=== PATIENT | male | born 1935 | race Caucasian/White ===

== ENCOUNTER → 2016-03-24 | Outpatient (CLI) | payer OTHER ==
--- NOTE | 2016-03-24 16:02 | DX ---
PA and Lateral Chest - March 24, 2016 Indication: Heart valve replacement. Follow up. Comparison: Two-view chest dated January 11, 2016 Findings: The right subpulmonic effusion has increased and is now moderate resulting in worsening rig ht basilar compressive atelectasis. The small left pleural effusion has decreased in volume. Cardiome gopal, midline sternal wire, and prosthetic tricuspid valve are unchanged. No edema. Impression: 1. Increasing moderate right subpulmonic effusion. 2. Decreasing small left pleural effusion. 3. Cardiomegaly. No failure.
== END ==
LOC: FIMAGING 10:04
PROVIDERS: ATTEND Internal Medicine Cardiovascular Disease
DX: Z09 Encounter for follow-up examination after completed treatment for conditions other than malignant neoplasm (principal); J90 Pleural effusion, not elsewhere classified; I50.33 Acute on chronic diastolic (congestive) heart failure; Z95.2 Presence of prosthetic heart valve

== ENCOUNTER 2017-04-03 10:38 | Emergency (ER) | payer OTHER ==
--- NOTE | 2017-04-03 10:38 | EDPHY ---
H & P Allergies/Adverse Reactions: No Known Allergies Allergy (Verified 10/25/15 17:24) Home Medications: Medication Instructions Recorded Multivitamins [Multivitamin (*)] 1 each PO DAILY 10/02/15 Ferrous Sulfate 325 mg PO BIDMEAL 10/25/15 Warfarin Sodium [Coumadin 5MG (*)] 5 mg PO SUTUWETHSA@16 10/25/15 Nebivolol HCl [Bystolic 5 mg (*)] 5 mg PO HS 10/26/15 Pantoprazole Sodium [Protonix 40mg 40 mg PO DAILY 12/21/15 (*)] Spironolactone [Aldactone 25 MG 25 mg PO SUTH@09 12/21/15 (*)] Warfarin Sodium [Coumadin 7.5MG 7.5 mg PO MOFR@12/21/15 (*)] Acetaminophen [Tylenol 325mg (*)] 650 mg PO Q4HRS PRN #0 tab 12/31/15 Aspirin [Aspirin 81mg (*)] 81 mg PO DAILY #0 tab.chew 12/31/15 Furosemide [Lasix 40 MG (*)] 40 mg PO BID #60 tab 12/31/15 Potassium Cl [Klor-Con 20 meq (*)] 20 meq PO BID #60 tab 12/31/15 Sennosides/Docusate Sodium 1 - 2 tab PO BID #0 tab 12/31/15 [Senokot-S] Zolpidem Tartrate [Ambien 5MG (*)] 10 mg PO HS PRN #10 tab 12/31/15 traMADol [Ultram 50 mg (*)] 50 - 100 mg PO Q6HRS PRN #30 tab 12/31/15 Clindamycin 150 mg PO Q8 #30 cap 04/03/17 Medical Decision Making ED Course/Re-evaluation: CHIEF COMPLAINT: Leg bleeding, redness HISTORY OF PRESENT ILLNESS: The patient is an anticoagulated 81 y/o male with atrial fibrillation arriving via EMS from [facility] for evaluation of spontaneous left lower leg bleeding. He reports baseline redness and swelling in both legs, but reports his left leg has looked more red recently. He was recently on Levaquin for cellulitis, but discontinued with 2 days left due to leg cramping. He went to see his social worker aide today for follow up on recent echocardiogram when he started bleeding in the lobby. EMS applied a pressure bandage and transported him here. Patient denies fever or any systemic symptoms. REVIEW OF SYSTEMS: A 10 point review of systems was performed and is negative with the exception of the elements mentioned in the history of present illness. PHYSICAL EXAM: HR, BP, O2 Sat, RR. Temp noted General Appearance: Alert, well hydrated, appropriate, and non-toxic appearing. Head: Atraumatic without scalp tenderness or obvious injury Eyes: Pupils equal, round, reactive to light and accommodation, EOMI, no trauma , no injection. Nose: Atraumatic, no rhinorrhea, clear. Throat: Mucus membranes moist. Neck: Supple Respiratory: No retractions, no distress, no wheezes, and no accessory muscle use. Lungs are clear to auscultation bilaterally. Cardiovascular: Regular rate and rhythm, no murmurs, rubs, or gallops. Chronic venous stasis changes to both lower legs. Gastrointestinal: Abdomen is soft, nontender, non-distended, no masses, no rebound, no guarding, no peritoneal signs. Musculoskeletal: Normal active ROM of all extremities. Venous stasis changes and pedal edema to both lower legs. Left lower leg is cellulitic and more swollen than right with pinpoint area of superficial bleeding now controlled. Neurological: Alert, appropriate, and interactive. The patient has non-focal cranial nerves, motor, sensory, and cerebellar exam. Skin: No rashes, good turgor, no nodules on palpation. Past medical history: Atrial fibrillation - Coumadin Past surgical history: Noncontributory Family history: Noncontributory Social history: Lives alone. PCP: Dr. Ray. 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 MEDICAL DECISION MAKING: This is an anticoagulated 81 y/o male who presents with now-controlled spontaneous bleeding from his left lower leg. He was recently on treatment for cellulitis in this leg, but discontinued his Levaquin early due to side effects. He has chronic venous stasis and swelling in both legs with cellulitis of his left lower leg and now controlled pinpoint bleed on the lateral side of his foot. No systemic infectious symptoms. I recommended admission for treatment , but he refused. He will be discharged on clindamycin to cover MRSA. Understands he needs to follow up with his PCP on Thursday without fail. Strict return precautions given. Departure - Departure Disposition: Home, Routine, Self-Care Clinical Impression: leg bleeding Cellulitis Qualifiers: Site of cellulitis: extremity Site of cellulitis of extremity: lower extremity Laterality: left Qualified Code(s): L03.116 - Cellulitis of left lower limb Condition: Good Instructions: Clindamycin (By mouth), Cellulitis (ED) Additional Instructions: 1. Take clindamycin as prescribed. Be sure to complete the entire prescription. 2. Follow up with your primary care provider on Thursday. Please call today to schedule this appointment. 3. Return to the ED for fever, uncontrollable bleeding, shortness of breath, chest pain, severe pain, or other worsening of condition. Referrals: Adiel Ray MD [Medical Doctor] - As per Instructions Prescriptions: Clindamycin 150 mg PO Q8 #30 cap Report Scribed for: Jw Jean Baptiste Report Scribed by: Judy Rice Date of Report: 04/03/17 Time of Report: 10:55
[2017-04-03] MEDS ORDERED: CLINDAMYCIN 150 MG CAP PO ONE (10:46)
[2017-04-03 10:58] VITALS: BP 111/77; PULSE 106; RESP 16; TEMP 97.5; O2SAT 95
== END 2017-04-03 11:13 | disposition home or self-care (01) ==
LOC: EDUNIT#
DX: R23.3 Spontaneous ecchymoses (principal); L03.116 Cellulitis of left lower limb; Z79.01 Long term (current) use of anticoagulants; Z79.82 Long term (current) use of aspirin

== ENCOUNTER 2017-05-04 11:31 | Inpatient (IN) | payer OTHER ==
--- NOTE | 2017-05-04 12:18 | CPEKG ---
Heart Rate: 100 RR Interval: 600 QRSD Interval: 98 QT Interval: 360 QTC Interval: 465 QRS [place]: -40 T Wave [place]: -9 EKG Severity - ABNORMAL ECG - EKG Impression: ATRIAL FIBRILLATION EKG Impression: MULTIFORM VENTRICULAR PREMATURE COMPLEXES EKG Impression: LEFT AXIS DEVIATION EKG Impression: LOW VOLTAGE IN FRONTAL LEADS Electronically Signed By: Ej Lincoln 04-May-2017 18:39:22
--- NOTE | 2017-05-04 13:00 | EDPHY ---
H & P Stated Complaint: Diarrhea; poss blood in stool; on Warfarin Time Seen by Provider: 05/04/17 13:00 HPI/ROS: CHIEF COMPLAINT: Diarrhea, weakness, edema HISTORY OF PRESENT ILLNESS: The patient presents to the ED with a 1 and 1/2 week history of watery diarrhea. The patient has a history of atrial fibrillation and is chronically anticoagulated with Coumadin. The patient reports that he was on antibiotic 2 weeks ago for an upper respiratory infection. He believes it was Levaquin. The patient does have a history of heart failure. The patient denies any history of fall or trauma. The patient does report dyspnea on exertion and dose of breath. He denies any asymmetric calf pain or swelling. He denies pleuritic chest pain. REVIEW OF SYSTEMS: A comprehensive 10 point review of systems is otherwise negative aside from elements mentioned in the history of present illness. Source: Patient - Personal History Current Tetanus Diphtheria and Acellular Pertussis (TDAP): Yes - Medical/Surgical History Hx Asthma: No Hx Chronic Respiratory Disease: No Hx Diabetes: No Hx Cardiac Disease: Yes Hx Renal Disease: No Hx Cirrhosis: No Hx Alcoholism: No Hx HIV/AIDS: No Hx Splenectomy or Spleen Trauma: No Other PMH: mitral valve replacement, a-fib, CHF, HTN. infections in lower legs - Social History Smoking Status: Former smoker - Physical Exam Exam: General Appearance: Alert, no distress Eyes: Pupils equal and round no pallor or injection ENT, Mouth: Mucous membranes moist Respiratory: Rales Cardiovascular: Irregularly Gastrointestinal: Abdomen is soft and nontender, no masses, bowel sounds normal Neurological: 5/5 strength all 4 extremities Skin: This is dermatitis noted to the bilateral lower extremities Musculoskeletal: Neck is supple nontender Extremities: 3+ pitting edema Constitutional: Initial Vital Signs Temperature (C) 36.8 C 05/04/17 11:35 Heart Rate 107 H 05/04/17 11:35 Respiratory Rate 18 05/04/17 11:35 Blood Pressure 117/59 L 05/04/17 11:35 O2 Sat (%) 96 05/04/17 11:35 O2 Delivery Mode Room Air Allergies/Adverse Reactions: No Known Allergies Allergy (Verified 05/04/17 11:33) Home Medications: Medication Instructions Recorded Multivitamins [Multivitamin (*)] 1 each PO DAILY 10/02/15 Warfarin Sodium [Coumadin 5MG (*)] 5 mg PO ROBERTUTHSA@21 10/25/15 Pantoprazole Sodium [Protonix 40mg 40 mg PO DAILY 12/21/15 (*)] Spironolactone [Aldactone 25 MG 12.5 mg PO DAILY 12/21/15 (*)] Warfarin Sodium [Coumadin 7.5MG 7.5 mg PO MWF@21 12/21/15 (*)] Aspirin [Aspirin 81mg (*)] 81 mg PO DAILY #0 tab.chew 12/31/15 Ferrous Sulfate [Ferrous Sulf 325 325 mg PO BID 05/04/17 MG (*)] Gabapentin [Neurontin 300 MG (*)] 300 mg PO HS 05/04/17 Metolazone [Zaroxolyn 5MG (*)] 5 mg PO DAILY 05/04/17 Metoprolol Succinate Xr [Toprol Xl 25 mg PO HS 05/04/17 25 mg (*)] Potassium Cl [Klor-Con 20 meq (*)] 40 meq PO TID 05/04/17 Torsemide [Demadex] 20 mg PO BID PRN 05/04/17 oxyCODONE/APAP 5/325 [Percocet 1 tab PO Q6HRS PRN 05/04/17 5/325 (*)] Medical Decision Making - Diagnostics EKG Interpretation: EKG: Complete interpretation has been separately recorded in the [facility] archive. Summary impression: Atrial fibrillation, rate 100, nonspecific ST T wave changes noted. Imaging Results: Imaging Impressions Chest X-Ray 05/04/17 13:01 Impression: Peripheral right basilar consolidation may represent intrafissural fluid, pneumonia or potentially segmental atelectasis. If differentiation is important, then consider CT angiography. ED Course/Re-evaluation: The patient presents to the ED with weakness, dehydration and diarrhea in the setting of recent antibiotic use. A Clostridium difficile test has been ordered. The patient is noted to have evidence of heart failure clinically. The patient is currently rate controlled atrial fibrillation. Additionally the patient has an elevated INR of 9.1. He was noted to have an indeterminately elevated troponin. The patient presents to the ED with deconditioning in the setting of dehydration from a diarrheal illness, common current congestive heart failure and slight renal failure. Patient has an elevated INR but no evidence of active bleeding. He is hemodynamically stable. Consultation was made with the hospitalist service. The patient will be admitted by Dr. Latonya Bailey. Differential Diagnosis: Differential diagnosis considered includes congestive heart failure, arrhythmia , dehydration, renal failure, Clostridium difficile colitis - Data Points Laboratory Results: Laboratory Results 05/04/17 12:14 18 12:14 18 18 05/04/17 12:14 12:14 12:14 WBC 32.13 10^3/uL H 10^3/uL (3.80-9.50) RBC 3.70 10^6/uL L 10^6/uL (4.40-6.38) Hgb 12.6 g/dL L g/dL (13.7-17.5) Hct 35.8 % L % (40.0-51.0) MCV 96.8 fL fL (81.5-99.8) MCH 34.1 pg pg (27.9-34.1) MCHC 35.2 g/dL g/dL (32.4-36.7) RDW 13.5 % % (11.5-15.2) Plt Count 197 10^3/uL 10^3/uL (150-400) MPV 10.2 fL fL (8.7-11.7) Neut % (Auto) Not Reported Lymph % (Auto) Not Reported [place] % (Auto) Not Reported Eos % (Auto) Not Reported Baso % (Auto) Not Reported Nucleat RBC Rel Count 0.0 % % (0.0-0.2) Absolute Neuts (auto) Not Reported Absolute Lymphs (auto) Not Reported Absolute Monos (auto) Not Reported Absolute Eos (auto) Not Reported Absolute Basos (auto) Not Reported Absolute Nucleated RBC 0.00 10^3/uL 10^3/uL (0-0.01) Immature Gran % Not Reported Seg Neutrophils % 92 % % Band Neutrophils % 3 % % Lymphocytes % 2 % % Monocytes % 4 % % Immature Gran # Not Reported Absolute Seg Neuts 29.56 10^/uL H 10^/uL (1.70-6.50) Absolute Band Neuts 0.96 10^3/uL H 10^3/uL (0.00-0.70) Absolute Lymphocytes 0.64 10^3/uL L 10^3/uL (1.00-3.00) Absolute Monocytes 1.29 10^3/uL H 10^3/uL (0.30-0.80) Platelet Estimate ADEQUATE (ADEQ) Polychromasia 1+ H Smear Review By Pending PT 77.2 SEC H SEC (12.0-15.0) INR 9.91 H* (0.83-1.16) APTT 95.5 SEC H SEC (23.0-38.0) Sodium 131 mEq/L L mEq/L (135-145) Potassium 4.1 mEq/L mEq/L (3.5-5.2) Chloride 91 mEq/L L mEq/L (97-110) Carbon Dioxide 25 mEq/l mEq/l (22-31) Anion Gap 15 mEq/L mEq/L (8-16) BUN 97 mg/dL H mg/dL (7-23) Creatinine 2.0 mg/dL H mg/dL (0.7-1.3) Estimated GFR 32 Glucose 110 mg/dL H mg/dL (70-100) Calcium 8.9 mg/dL mg/dL (8.5-10.4) Troponin I 0.052 ng/mL H ng/mL (0.000-0.034) NT-Pro-B Natriuret Pep 7250 pg/mL H pg/mL (0-450) Departure - Departure Disposition: [facility] Acute Clinical Impression: Atrial fibrillation, Dehydration, Leukocytosis, Diarrhea, Elevated troponin Condition: Good
[2017-05-04 13:06] LABS: PLATELET COUNT 197 10^3/uL (150-400)
[2017-05-04 13:40] LABS: PROTIME(PATIENT) 77.2 SEC (12.0-15.0)
[2017-05-04] MEDS ORDERED: BACITRACIN OINTMENT 1 PACKET TP ONE (13:52)
[2017-05-04] MEDS ORDERED: ONDANSETRON DISINTEGRATING 4 MG TAB PO PRN (15:11)
[2017-05-04] MEDS ORDERED: ONDANSETRON 4 MG/2 ML VIAL IVP PRN (15:11)
[2017-05-04] MEDS ORDERED: NS 1,000 ML IV SCH (15:15)
[2017-05-04] MEDS ORDERED: PHYTONADIONE IV ONE (15:25)
[2017-05-04] MEDS ORDERED: NS IV ONE (15:25)
[2017-05-04] MEDS: OXYCODONE/APAP 5/325 TAB PO PRN ×2 (16:14→22:37)
[2017-05-04] MEDS: ACETAMINOPHEN 325 MG TAB PO PRN (16:16)
[2017-05-04] MEDS: VANCOMYCIN 125 MG/2.5 ML UDL PO SCH ×2 (16:17→21:06)
--- NOTE | 2017-05-04 16:21 | GHP ---
[f rep st] HISTORY AND PHYSICAL DATE OF ADMISSION: 05/04/2017 CHIEF COMPLAINT: Bloody diarrhea. HISTORY OF PRESENT ILLNESS: The patient is an 81-year-old man with a complicated past medical histor y due to atrial fibrillation with chronic anticoagulation, bioprosthetic tricuspid and mitral valve, and chronic renal insufficiency with a baseline creatinine between 1.6 and 1.9. He has had a couple of infections over the last month. Initially, he presented to his primary care provider with some co ngestion and sinus issues and was placed on Levaquin 500 mg daily for 10 days. After 8 days of this, he started to complain of some leg cramping, developed some bleeding in his left ankle, and was sent back to the emergency department, at which time he was diagnosed with cellulitis and started on clin damycin for 10 days. He just recently stopped that. About a week and a half ago, he started noting diarrhea. This is watery diarrhea, which was frequent. The diarrhea has been worsening over the pas t few days and a couple days ago noted increasing blood in his stool. Because of the ongoing bright red blood per rectum, he came to the emergency department today for further evaluation, at which time his INR was elevated at 9, his hemoglobin was mildly low at 12.6. He has not had significant abdomi nal pain, nausea, vomiting. No fevers or chills. No chest pain. No shortness of breath. No hematu yanet. No bleeding from his gums or anywhere else. The bleeding on his ankle has resolved. He says h is weight is a little bit down from his dry weight that is typically 69 kg. He also has had signific antly low energy, but no exertional symptoms of dyspnea or chest pain more recently. REVIEW OF SYSTEMS: A 10-point review of systems was done with pertinent positives present in the HPI : GENERAL: No fevers, chills, slight decreased weight. HEENT: Negative. CARDIOVASCULAR: Negativ e. PULMONARY: Negative. GASTROINTESTINAL: See HPI. : Negative. EXTREMITIES: See HPI. SKIN: See HPI. NEUROLOGIC: Negative. PSYCHIATRIC: Negative. PAST MEDICAL HISTORY: 1. Atrial fibrillation, on chronic anticoagulation with warfarin. Last INR on 03/26, which was norm al for him. 2. Bioprosthetic mitral and tricuspid valve. 3. Diastolic congestive heart failure. Last ejection fraction was 58%. 4. Chronic renal insufficiency with a baseline creatinine around 1.6 to 1.9. 5. Chronic back pain. 6. Gout. 7. Coronary artery disease with mild nonobstructive coronary disease by angiogram. 8. Abnormal PSA. 9. Chronic edema. 10. Hypertension. 11. History of hyperthyroidism. 12. Sensorineural hearing loss. PAST SURGICAL HISTORY: Valve replacements as noted in the HPI. FAMILY HISTORY: Significant for heart disease in his mother and his brother, prostate cancer in his father. SOCIAL HISTORY: He is . He does have step children. Former smoker. He drinks alcohol about 8 drinks per week. CURRENT MEDICATIONS: Please see medication reconciliation sheet. This includes, aspirin 81 daily, D emadex 20 daily, gabapentin 300 at night, metolazone 5 mg daily, Percocet as needed, Protonix 40 mg d aily, potassium 20 mEq daily, spironolactone 25 daily, Toprol-XL 25 daily, and warfarin as prescribed . ALLERGIES: No known drug allergies. PHYSICAL EXAMINATION: VITAL SIGNS: He is afebrile. Heart rate 117, blood pressure 111/75, respirat ions 14. He is 95% on room air. GENERAL: He is an 81-year-old man who is in no obvious distress. He is alert. HEENT: Pupils are small, but reactive. Extraocular movements intact. Sclerae anicter ic. Mucous membranes are slightly dry. Face is symmetric. NECK: Supple without adenopathy. HEART : Irregular with systolic murmur. LUNGS: Diminished bilaterally with some significantly decreased at the bases. Scattered rales clears with deep breathing. ABDOMEN: Slightly distended, mildly tend er in the left lower quadrant without guarding or rebound. EXTREMITIES: 3+ edema bilateral lower ex tremities with some chronic venous stasis changes. No evidence of cellulitis. MUSCULOSKELETAL: No joint effusions or deformities. SKIN: Intact. No rash. NEUROLOGIC: He is alert. His speech is f luent. He is moving all 4 extremities. PSYCHIATRIC: Mood is appropriate. LABORATORY/IMAGING: CBC shows a white count of 32,000, hemoglobin 12.6 with platelet count 197. Tierney ctrolytes notable for a sodium of 131, BUN is 97, creatinine at 2. Glucose was 110. INR is elevated at 9.9. Chest x-ray personally reviewed and interpreted, shows improving pleural effusion, questionable right lower lobe infiltrate versus atelectasis versus fluid in the fissure. Electrocardiogram shows atrial fibrillation. ASSESSMENT/PLAN: 81-year-old with multiple medical issues is admitted with bloody diarrhea, elevated INR, and mild anemia in the setting of chronic renal failure. He has had exposure to 2 different an tibiotics in the last month and is at high risk for developing Clostridium difficile colitis. 1. Bloody diarrhea, likely secondary to Clostridium difficile colitis, complicated by elevated INR, which may also be increased due to recent antibiotic usage with no recent monitoring. His hemoglobin appears stable. He has a normal blood pressure, but is slightly tachycardic. Plan will be to give him gentle fluids. Follow serial hemoglobin and hematocrit. We will give him a dose of vitamin K. If his hemoglobin and hematocrit remains stable, he will likely not need fresh frozen plasma. If not , we can always transfused with fresh frozen plasma. I suspect his gastrointestinal blood loss is se condary to his elevated INR and if this resolves with reversal of his INR, he will likely not need fu rther Gastroenterology workup. 2. Atrial fibrillation on chronic anticoagulation. See above. Vitamin K. Consider fresh frozen pl asma if he has decrease in his hematocrit. 3. Bioprosthetic mitral and tricuspid valve. Does not require anticoagulation for this. We will mo nitor his heart function. I did talk with his coin purse framer, Dr. Shadi Nolasco, who feels that he prima izabela has diastolic dysfunction and right-sided failure and recommends holding his diuretics. 4. Diastolic heart failure. See above. Last ejection fraction 58%. We will hold his diuretics, mo nitor his fluid status. His dry weight is less than his usual at this time, so I suspect he may be i ntravascularly dry. 5. Acute on chronic renal insufficiency. Creatinine elevated over his baseline. Again, will give v richard gentle fluids, follow this, and monitor his weight. I suspect this should correct rather quickly . 6. Chronic back pain. 7. Gout. 8. Coronary artery disease with slightly elevated troponin. He did have a recent angiogram, which s howed mild nonobstructive disease. This is likely a demand mismatch and will recheck a troponin in t he morning. He currently has no symptoms. 9. Deep venous thrombosis prophylaxis. Patient medium risk; however, he is currently over-anticoagu lated. We will monitor his daily INR. Copy requested to: Dr. Shadi Nolasco /[id number]/MODL
--- NOTE | 2017-05-04 17:05 | PDMN ---
Medical Necessity Medical necessity: Patient meets inpatient criteria per physician note and [facility] [place] [facility] (severe over-anticoagulation/INR 9.9; bloody diarrhea/poss C Diff ; history of atrial fib w/chronic anticoagulation, bioprosthetic mitral and tricuspid valves and diastolic heart failure with [id number] renal insufficiency; anticipated LOS > 2 midnights for ongoing IV hydration, IV Vit K , monitoring of serial labwork, poss FFP as needed.)
[2017-05-04 19:57] LABS: INR 9.91 (0.83-1.16)
[2017-05-04] MEDS: METOPROLOL SUCCINATE XR 25 MG TAB PO SCH (21:06)
[2017-05-04] MEDS: GABAPENTIN 300 MG CAP PO SCH (21:06)
[2017-05-04 22:54] LABS: INR 2.95 (0.83-1.16); PROTIME(PATIENT) 30.6 SEC (12.0-15.0)
[2017-05-05 04:13] LABS: INR 2.25 (0.83-1.16); PROTIME(PATIENT) 24.9 SEC (12.0-15.0)
[2017-05-05] MEDS: VANCOMYCIN 125 MG/2.5 ML UDL PO SCH ×4 (05:39→20:45)
[2017-05-05] MEDS: OXYCODONE/APAP 5/325 TAB PO PRN ×3 (08:12→20:51)
[2017-05-05] MEDS: MULTIVITAMINS 1 EACH TAB PO SCH (08:12)
[2017-05-05] MEDS ORDERED: NS 1,000 ML IV SCH (09:15)
--- NOTE | 2017-05-05 10:01 | HOSPPROG ---
Hospitalist Progress Note Assessment/Plan: 81-year-old with diastolic dysfunction and congestive heart failure is admitted with severe diarrhea, bright red blood per rectum and coagulopathy # diarrhea secondary to recent antibiotic use, currently on vancomycin. Will continue same * Precautions * PO Vanco * Gentle IV fluids, patient is slightly dehydrated # atrial fibrillation with rapid ventricular rate. I suspect this is likely from mild dehydration and will give gentle fluids * IV fluids * Continue metoprolol * Consider further rate reduction medication depending on response to fluid * On Coumadin for anticoagulation. INR improved with vitamin K, will resume with goal INR at 2, may need to hold any further GI bleeding # GI bleed: I suspect this is due to elevated INR. Hemoglobin has remained stable. * Continue to monitor H&H * Hold warfarin if rebleeds * No further evaluation needed at this time if no further rebleeding # anemia with acute blood loss. Stable does not need transfusion at this time # acute on chronic renal failure, creatinine back at baseline. Continue to follow # mild hypothyroidism with elevated TSH and low free T3. Will add low-dose Synthroid to his regimen he needs repeat labs in 2 months # by prostatic mitral and tricuspid valves # history of hypertension # gout # CAD with nonobstructive disease by angiogram previously Subjective: Feels quite weak today continues to have liquid diarrhea minimal abdominal pain eating and drinking well Objective: Vital Signs Temp Pulse Resp BP Pulse Ox 37.0 C 121 H 21 H 103/70 93 05/05/17 07:37 05/05/17 07:37 05/05/17 07:37 05/05/17 07:37 05/05/17 07:37 Laboratory Results 05/05/17 03:18 05/05/17 03:18 05/04/17 05/05/17 05/06/17 05:59 05:59 05:59 Intake Total 940 Output Total 575 Balance 365 PT 24.9 SEC (12.0-15.0) H 05/05/17 03:18 INR 2.25 (0.83-1.16) H 05/05/17 03:18 - Physical Exam Constitutional: no apparent distress, chronically ill appearing Eyes: PERRL, anicteric sclera Ears, Nose, Mouth, Throat: dry mucous membranes Cardiovascular: systolic murmur, irregularly irregular, edema Respiratory: no respiratory distress, clear to auscultation Gastrointestinal: normoactive bowel sounds, tenderness (Mild left lower quadrant ), distension (Mild) Genitourinary: no bladder fullness Skin: warm Musculoskeletal: generalized weakness Neurologic: No facial droop Psychiatric: interacting appropriately ICD10 Worksheet Patient Problems: Problems Problem Status Onset CHF exacerbation Acute Severe tricuspid regurgitation Chronic S/P TVR (tricuspid valve replacement) Acute 12/25/15 Acute blood loss anemia Acute Coagulopathy Acute Permanent atrial fibrillation Chronic Atrial fibrillation Acute Dehydration Acute Leukocytosis Acute Diarrhea Acute Elevated troponin Acute
--- NOTE | 2017-05-05 10:04 | WOCRNPDOC ---
WOCRN Advanced Assessment Note - Skin Integrity Problem, Advanced Assess Left Coccyx Pressure Injury Dressing Type: Allevyn Life Dressing Description: Soiled Exudate Amount: None Integumentary Issue Intervention: Barrier Cream Applied (will have nursing apply dimethicone) Neida Wound Tissue: Blanching, Erythema, Intact Neida Wound Swelling: None Wound Bed Color: Purple Site Odor: None Site Measurement - Head-to-Toe Length X Width X Depth (cm): [id number] Pressure Injury Stage: Deep Tissue Injury (DTI) (suspected) Pressure Injury Present on Admit: Yes (noted by nursing; hospitalist notified) Skin Integrity Problem Comment: Discrete, circular-shaped area of purple, ecchymotic skin to the L of patient's coccyx. Given its location and coloring, this is likely a suspected deep tissue injury. As patient is having frequent loose stools, will have nursing remove Allevyn dressing and apply dimethicone cream BID and PRN. Pressure-relieving interventions initiated, and patient verbalized understanding that nursing will encourage him to off-load this area every 2 hours.
[2017-05-05] MEDS: LEVOTHYROXINE 25 MCG TAB PO SCH (10:16)
[2017-05-05] MEDS: ACETAMINOPHEN 325 MG TAB PO PRN (10:20)
[2017-05-05] MEDS ORDERED: POTASSIUM CL 20 MEQ TAB PO ONE (12:03)
--- NOTE | 2017-05-05 12:22 | ASMTCMCOM ---
CM Note CM Note Notes: 05/05/2017 Case Management Note Discussed pt during rounds. Pt admitted for diarrhea, dehydration and CHF. Met w/pt and brother Don to discuss recommendation for Home Care PT and 24 hour supervision. Both in agreement. Contacted [facility] for referral. Case Management d/c poc: HC RN and PT Case Management to follow. Date Signed: 05/05/2017 12:22 PM Electronically Signed By:Annalisa Araya RN
--- NOTE | 2017-05-05 15:25 | ASMTCAGE ---
CAGE Do you feel you ought to Answers: No cut down on your drinking or drug use? Do people annoy you by Answers: No criticizing your drinking or drug use? Do you feel guilty about Answers: No your drinking or drug use? Do you drink or use drugs Answers: No first thing in the morning ([employer])? Additional Comments Pt reports 4 drinks per night of vodka. He mixes 1.5 ounces of vodka (for a total of 6 ounces) with a can of squirt soda. States he needs the vodka to sleep because his MD won't prescribe Ambien d/t fall risk. Date Signed: 05/05/2017 03:25 PM Electronically Signed By:Annalisa Araya RN
[2017-05-05] MEDS ORDERED: WARFARIN SODIUM 2.5 MG TAB PO ONE (16:00)
[2017-05-05] MEDS: METOPROLOL SUCCINATE XR 25 MG TAB PO SCH (19:36)
[2017-05-05] MEDS ORDERED: NS 1,000 ML IV ONE (20:24)
[2017-05-05] MEDS: GABAPENTIN 300 MG CAP PO SCH (20:45)
[2017-05-05] MEDS ORDERED: NS 250 ML IV ONE (22:48)
[2017-05-06] MEDS: LEVOTHYROXINE 25 MCG TAB PO SCH (05:21)
[2017-05-06] MEDS: OXYCODONE/APAP 5/325 TAB PO PRN ×3 (05:21→20:42)
[2017-05-06] MEDS: VANCOMYCIN 125 MG/2.5 ML UDL PO SCH ×4 (05:22→20:43)
[2017-05-06 05:26] LABS: PLATELET COUNT 146 10^3/uL (150-400)
[2017-05-06 05:34] LABS: INR 1.97 (0.83-1.16); PROTIME(PATIENT) 22.5 SEC (12.0-15.0)
[2017-05-06] MEDS: MULTIVITAMINS 1 EACH TAB PO SCH (08:37)
--- NOTE | 2017-05-06 15:08 | ASMTCMCOM ---
CM Note CM Note Notes: 05/06/2017 Case Management Note Met w/pt to discuss PT recommendation for SNF rehab. Pt in agreement. Pt requested referrals to [facility]. Pt has a house in [place] and requested referrals to [facility] [place]. Case Management d/c poc: SNF rehab pending acceptance and continued PT recommendations. Case Management to follow. Date Signed: 05/06/2017 03:08 PM Electronically Signed By:Annalisa Araya RN
--- NOTE | 2017-05-06 15:49 | HOSPPROG ---
Hospitalist Progress Note Assessment/Plan: 81-year-old with diastolic dysfunction and congestive heart failure is admitted with severe diarrhea, bright red blood per rectum and coagulopathy # acute colitis secondary to C diff- patient continues to have voluminous diarrhea today - - continue p.o. Vancomycin treatment dose - continue isolation precautions # atrial fibrillation with rapid ventricular rate. I suspect this is likely from mild dehydration and will give gentle fluids Chest x-ray(personally reviewed and interpreted) no acute infiltrates or edema -IV fluids - increase metoprolol 25 mg twice daily - restart warfarin # acute GI bleed- 2/2 elevated INR >9 at presentation with concurrent colitis Hgb 11 this morning - Continue to monitor H&H - INR now 1.9 secondary to treatment with vitamin K- recheck INR in a.m. - No further evaluation needed at this time if no further rebleeding # anemia with acute blood loss. Stable does not need transfusion at this time # acute on chronic renal failure, creatinine back at baseline 1.6 -> 1.3 - Continue to follow # mild hypothyroidism with elevated TSH and low free T3. - cont new low-dose Synthroid to his regimen he needs repeat labs in 2 months # by prostatic mitral and tricuspid valves- continue monitoring anticoagulation # history of hypertension # gout # CAD with nonobstructive disease by angiogram previously # prophylaxis on anticoagulation # diet regular # disposition greater than 2 midnights as the patient remains acutely ill with acute C diff colitis and GI bleed I have discussed the case RN-we will encourage p.o. Intake if it drops off can restart IV fluids Subjective: Diarrhea persists Objective: Vital Signs Temp Pulse Resp BP Pulse Ox 36.5 C 122 H 22 H 107/65 96 05/06/17 15:40 05/06/17 15:40 05/06/17 15:40 05/06/17 15:40 05/06/17 15:40 Laboratory Results 05/06/17 05:00 05/06/17 05:00 05/05/17 05/06/17 05/07/17 05:59 05:59 05:59 Intake Total 128 105 5447 Output Total 575 775 400 Balance 365 -375 1400 PT 22.5 SEC (12.0-15.0) H 05/06/17 05:00 INR 1.97 (0.83-1.16) H 03/14/18 05:00 - Physical Exam Constitutional: no apparent distress Eyes: anicteric sclera Ears, Nose, Mouth, Throat: moist mucous membranes Cardiovascular: irregularly irregular, tachycardia Respiratory: no respiratory distress Gastrointestinal: normoactive bowel sounds Genitourinary: no bladder fullness Skin: warm Musculoskeletal: No asymmetric calves Neurologic: AAOx3 Psychiatric: interacting appropriately Lymph, Heme, Immunologic: no cervical LAD ICD10 Worksheet Patient Problems: Problems Problem Status Onset Atrial fibrillation Acute Dehydration Acute Diarrhea Acute Elevated troponin Acute Leukocytosis Acute Acute blood loss anemia Acute CHF exacerbation Acute Coagulopathy Acute S/P TVR (tricuspid valve replacement) Acute 12/25/15 Permanent atrial fibrillation Chronic Severe tricuspid regurgitation Chronic
[2017-05-06] MEDS ORDERED: WARFARIN SODIUM 5 MG TAB PO ONE (16:00)
[2017-05-06] MEDS: ACETAMINOPHEN 325 MG TAB PO PRN (18:38)
[2017-05-06] MEDS: METOPROLOL TARTRATE 25 MG TAB PO SCH (20:42)
[2017-05-06] MEDS: GABAPENTIN 300 MG CAP PO SCH (20:42)
[2017-05-07 04:19] LABS: INR 2.75 (0.83-1.16)
[2017-05-07] MEDS: VANCOMYCIN 125 MG/2.5 ML UDL PO SCH ×4 (06:25→20:30)
[2017-05-07] MEDS: LEVOTHYROXINE 25 MCG TAB PO SCH (06:25)
[2017-05-07] MEDS: MULTIVITAMINS 1 EACH TAB PO SCH (09:17)
[2017-05-07] MEDS: METOPROLOL TARTRATE 25 MG TAB PO SCH ×2 (09:21→20:30)
[2017-05-07] MEDS: OXYCODONE/APAP 5/325 TAB PO PRN ×3 (12:58→22:04)
--- NOTE | 2017-05-07 13:10 | ASMTCMCOM ---
CM Note CM Note Notes: Pts case reviewed in tx rounds. CM met w/ pt for dispo planning. [facility] and [facility] have accepted pt. Pt would like to go to the [facility]. CM notified Lamont at the [facility] and he will start getting auth. CM sent updates to the [facility]. CM to follow. Plan: [facility] Date Signed: 05/07/2017 01:10 PM Electronically Signed By:KATEI Kinney
[2017-05-07] MEDS ORDERED: NS 1,000 ML IV ONE (15:56)
--- NOTE | 2017-05-07 15:58 | HOSPPROG ---
Hospitalist Progress Note Assessment/Plan: 81-year-old with diastolic dysfunction and congestive heart failure is admitted with severe diarrhea, bright red blood per rectum and coagulopathy # acute colitis secondary to C .diff- frequency of diarrhea slowed down mildly overnight WBC 34-> 24 Optimistic the patient is slowly improving- continue to encourage p.o. Intake - continue p.o. Vancomycin treatment dose - continue isolation precautions # atrial fibrillation with rapid ventricular rate. I suspect this is likely from mild dehydration will check urine studies and hydrate if appropriate Chest x-ray(personally reviewed and interpreted) no acute infiltrates or edema -IV fluids - increase metoprolol 25 mg twice daily - continue warfarin # acute hyponatremia-patient with ongoing losses with his diarrhea however peripheral lower extremity edema - Check urine electrolytes to clarify fluid status # acute GI bleed- 2/2 elevated INR >9 at presentation with concurrent colitis Hgb remains 11 this morning - Continue to monitor H&H daily - INR now 2.75 - continue home dosing of anticoagulants # anemia with acute blood loss. Stable does not need transfusion at this time # acute on chronic renal failure, creatinine back at baseline 1.6 -> 1.4 - Continue to follow # mild hypothyroidism with elevated TSH and low free T3. - cont new low-dose Synthroid to his regimen he needs repeat labs in 2 months # by prostatic mitral and tricuspid valves- continue monitoring anticoagulation # history of hypertension # gout # CAD with nonobstructive disease by angiogram previously # prophylaxis on anticoagulation # diet regular # disposition greater than 2 midnights as the patient remains acutely ill with acute C diff colitis and GI bleed I have discussed the case RN-we will encourage p.o. Intake if it drops off can restart IV fluids Subjective: Appetite remains poor Objective: Vital Signs Temp Pulse Resp BP Pulse Ox 36.6 C 94 18 95/72 L 93 05/07/17 12:00 05/07/17 12:00 05/07/17 12:00 05/07/17 12:00 05/07/17 12:00 Laboratory Results 05/07/17 03:34 05/07/17 03:34 05/06/17 05/07/17 05/08/17 05:59 05:59 05:59 Intake Total 400 2220 120 Output Total 775 600 350 Balance -375 1620 -230 PT 29.0 SEC (12.0-15.0) H 05/07/17 03:34 INR 2.75 (0.83-1.16) H 05/07/17 03:34 - Physical Exam Constitutional: no apparent distress, chronically ill appearing Eyes: anicteric sclera Ears, Nose, Mouth, Throat: dry mucous membranes Cardiovascular: regular rate and rhythym, tachycardia Respiratory: no respiratory distress Gastrointestinal: normoactive bowel sounds, distension Genitourinary: no bladder fullness Skin: warm Musculoskeletal: No asymmetric calves Neurologic: AAOx3 Psychiatric: interacting appropriately Lymph, Heme, Immunologic: no cervical LAD ICD10 Worksheet Patient Problems: Problems Problem Status Onset Atrial fibrillation Acute Dehydration Acute Diarrhea Acute Elevated troponin Acute Leukocytosis Acute Acute blood loss anemia Acute CHF exacerbation Acute Coagulopathy Acute S/P TVR (tricuspid valve replacement) Acute 12/25/15 Permanent atrial fibrillation Chronic Severe tricuspid regurgitation Chronic
[2017-05-07] MEDS ORDERED: WARFARIN SODIUM 2.5 MG TAB PO ONE (16:00)
[2017-05-07] MEDS: GABAPENTIN 300 MG CAP PO SCH (20:29)
[2017-05-08 04:05] LABS: INR 3.33 (0.83-1.16); PROTIME(PATIENT) 33.6 SEC (12.0-15.0)
[2017-05-08] MEDS: LEVOTHYROXINE 25 MCG TAB PO SCH (07:02)
[2017-05-08] MEDS: VANCOMYCIN 125 MG/2.5 ML UDL PO SCH ×4 (07:02→21:00)
[2017-05-08] MEDS: METOPROLOL TARTRATE 25 MG TAB PO SCH ×2 (08:09→21:00)
[2017-05-08] MEDS: MULTIVITAMINS 1 EACH TAB PO SCH (08:09)
[2017-05-08] MEDS: SODIUM CHLORIDE 1,000 MG TAB PO SCH ×2 (09:15→17:37)
[2017-05-08] MEDS: OXYCODONE/APAP 5/325 TAB PO PRN ×2 (12:32→17:37)
--- NOTE | 2017-05-08 13:00 | ASMTCMCOM ---
CM Note CM Note Notes: Patient case reviewed in rounds this am. He is improving. Discharge plan of care is to dc to [facility] when medically cleared. Monitoring electrolytes and INR. CM to follow. Date Signed: 05/08/2017 01:00 PM Electronically Signed By:Jessi Sanchez RN
--- NOTE | 2017-05-08 15:19 | HOSPPROG ---
Hospitalist Progress Note Assessment/Plan: 81-year-old with diastolic dysfunction and congestive heart failure is admitted with severe diarrhea, bright red blood per rectum and coagulopathy # acute colitis secondary to C .diff- frequency of diarrhea slowed down mildly overnight WBC 34-> 17 Patient is slowly improving- continue to encourage p.o. Intake - continue p.o. Vancomycin treatment dose - continue isolation precautions # atrial fibrillation with rapid ventricular rate. I suspect this is likely from mild dehydration will check urine studies and hydrate if appropriate Chest x-ray (personally reviewed and interpreted) no acute infiltrates or edema - IV fluids -continue metoprolol 25 mg twice daily - continue warfarin # acute hyponatremia-patient with ongoing losses with his diarrhea however peripheral lower extremity edema- Kerri < 5 however dropped to 124 has received IVF - adding salt tabs and encouraging PO # anemia with acute blood loss. Stable does not need transfusion at this time # acute on chronic renal failure, creatinine back at baseline 1.6 -> 1.5 - Continue to follow # mild hypothyroidism with elevated TSH and low free T3. - cont new low-dose Synthroid to his regimen he needs repeat labs in 2 months # prostatic mitral and tricuspid valves- continue monitoring anticoagulation- INR 3.3 holding warfarin today # history of hypertension # gout # acute GI bleed- 2/2 elevated INR > 9 at presentation with concurrent colitis Hgb remains 11 this morning - Continue to monitor H&H daily # CAD with nonobstructive disease by angiogram previously # prophylaxis on anticoagulation # diet regular # disposition greater than 2 midnights as the patient remains acutely ill with acute C diff colitis SNF likely in 24-72 hours I have discussed the case RN - holding warfarin today Subjective: feels a little better Objective: Vital Signs Temp Pulse Resp BP Pulse Ox 36.3 C 90 20 97/71 L 90 L 05/08/17 12:00 05/08/17 12:00 05/08/17 12:00 05/08/17 12:00 05/08/17 12:00 Laboratory Results 05/08/17 03:36 05/08/17 03:36 05/07/17 05/08/17 05/09/17 05:59 05:59 05:59 Intake Total 2220 1330 Output Total 600 350 Balance 1620 980 PT 33.6 SEC (12.0-15.0) H 05/08/17 03:36 INR 3.33 (0.83-1.16) H 05/08/17 03:36 - Physical Exam Constitutional: chronically ill appearing Eyes: anicteric sclera Ears, Nose, Mouth, Throat: moist mucous membranes Cardiovascular: irregularly irregular Respiratory: no respiratory distress Gastrointestinal: normoactive bowel sounds, distension Genitourinary: no bladder fullness Skin: warm Musculoskeletal: No asymmetric calves Neurologic: AAOx3 Psychiatric: interacting appropriately Lymph, Heme, Immunologic: no cervical LAD ICD10 Worksheet Patient Problems: Problems Problem Status Onset Atrial fibrillation Acute Dehydration Acute Diarrhea Acute Elevated troponin Acute Leukocytosis Acute Acute blood loss anemia Acute CHF exacerbation Acute Coagulopathy Acute S/P TVR (tricuspid valve replacement) Acute 12/25/15 Permanent atrial fibrillation Chronic Severe tricuspid regurgitation Chronic
[2017-05-08] MEDS: GABAPENTIN 300 MG CAP PO SCH (21:00)
[2017-05-09] MEDS: OXYCODONE/APAP 5/325 TAB PO PRN ×3 (00:48→21:24)
[2017-05-09 04:33] LABS: INR 3.4 (0.83-1.16); PROTIME(PATIENT) 34.1 SEC (12.0-15.0)
[2017-05-09] MEDS: VANCOMYCIN 125 MG/2.5 ML UDL PO SCH ×4 (05:27→21:25)
[2017-05-09] MEDS: LEVOTHYROXINE 25 MCG TAB PO SCH (05:27)
[2017-05-09] MEDS: METOPROLOL TARTRATE 25 MG TAB PO SCH ×2 (10:49→21:24)
[2017-05-09] MEDS: MULTIVITAMINS 1 EACH TAB PO SCH (10:49)
[2017-05-09] MEDS: SODIUM CHLORIDE 1,000 MG TAB PO SCH ×2 (10:49→18:18)
[2017-05-09] MEDS ORDERED: NS 1,000 ML IV SCH (11:30)
--- NOTE | 2017-05-09 18:20 | HOSPPROG ---
Hospitalist Progress Note Assessment/Plan: Assessment: 81-year-old male presents with acute enterocolitis secondary to C diff Plan: # acute colitis secondary to C .diff - ongoing loose BMs today, minimal abd pain, WBC downtrending - cont on PO vanco # atrial fibrillation with rapid ventricular rate - acute, cont on metop 25 bid , may need increase as his activity increases - remains in AFib on telemetry, personally interpreted, continue to monitor - cont on coumadin # acute hyponatremia - patient with ongoing losses and low Jose Antonio, cont NS + salt tabs # acute blood loss anemia - 2/2 colitis and supratherapeutic INR, cont to monitor Hgb # JOHN on CKD stage III - 2/2 hypovolemia, Cr returned to baseline 2/2 IVF, cont to monitor # Mild hypothyroidism with elevated TSH and low free T3 - cont new low-dose Synthroid to his regimen he needs repeat labs in 2 months # bioprostatic mitral and tricuspid valves - continue monitoring anticoagulation - INR 3.3 holding warfarin today, goal 2-3 # chronic HTN - cont home Rx # gout, chronic - no flare # acute lower GI hemorrhage - 2/2 elevated INR > 9 at presentation with concurrent colitis Hgb remains 11 this morning - Continue to monitor H&H daily # CAD, chronic # prophylaxis on anticoagulation # diet regular # disposition likely SNF when medically stable High-level medical complexity, with high risk of worsening morbidity and/or mortality secondary to the issues as outlined above. Subjective: Patient with uncontrolled loose bowel movement Objective: Vital Signs Temp Pulse Resp BP Pulse Ox 36.7 C 84 14 112/74 94 05/09/17 16:00 05/09/17 16:00 05/09/17 16:00 05/09/17 16:00 05/09/17 16:00 Laboratory Results 05/09/17 03:52 05/09/17 09:11 05/08/17 05/09/17 05/10/17 05:59 05:59 05:59 Intake Total 1330 1650 Output Total 350 800 300 Balance 980 850 -300 PT 34.1 SEC (12.0-15.0) H 05/09/17 03:52 INR 3.40 (0.83-1.16) H 05/09/17 03:52 - Physical Exam Constitutional: no apparent distress, not in pain, chronically ill appearing, uncomfortable Cardiovascular: irregularly irregular, tachycardia, edema (1+ bilateral lower extremity edema), No systolic murmur Respiratory: no respiratory distress, no rales or rhonchi, clear to auscultation Gastrointestinal: tenderness (Mild), distension (Moderate), No normoactive bowel sounds (Hyperactive bowel sounds), No guarding Neurologic: AAOx3, sensation intact bilaterally Psychiatric: interacting appropriately, not anxious, not encephalopathic, thought process linear ICD10 Worksheet Patient Problems: Problems Problem Status Onset CHF exacerbation Acute Severe tricuspid regurgitation Chronic S/P TVR (tricuspid valve replacement) Acute 12/25/15 Acute blood loss anemia Acute Coagulopathy Acute Permanent atrial fibrillation Chronic Atrial fibrillation Acute Dehydration Acute Leukocytosis Acute Diarrhea Acute Elevated troponin Acute
[2017-05-09] MEDS: GABAPENTIN 300 MG CAP PO SCH (21:24)
[2017-05-09] MEDS ORDERED: IPRATROPIUM/ALBUTEROL 3 ML DEYVIAL IH ONE (21:44)
[2017-05-10 04:18] LABS: PLATELET COUNT 154 10^3/uL (150-400)
[2017-05-10 04:26] LABS: INR 3.81 (0.83-1.16); PROTIME(PATIENT) 37.2 SEC (12.0-15.0)
[2017-05-10] MEDS: VANCOMYCIN 125 MG/2.5 ML UDL PO SCH ×4 (06:07→22:32)
[2017-05-10] MEDS: LEVOTHYROXINE 25 MCG TAB PO SCH (06:07)
[2017-05-10] MEDS: MULTIVITAMINS 1 EACH TAB PO SCH (08:58)
[2017-05-10] MEDS: SODIUM CHLORIDE 1,000 MG TAB PO SCH ×2 (08:58→17:07)
[2017-05-10] MEDS: METOPROLOL TARTRATE 25 MG TAB PO SCH ×2 (08:59→22:31)
[2017-05-10] MEDS: OXYCODONE/APAP 5/325 TAB PO PRN ×2 (12:12→18:06)
--- NOTE | 2017-05-10 17:07 | HOSPPROG ---
Hospitalist Progress Note Assessment/Plan: Assessment: 81-year-old male presents with acute enterocolitis secondary to C diff Plan: # acute colitis secondary to C .diff - ongoing loose BMs today, stool incontinence, minimal abd pain, WBC downtrending - cont on PO vanco, clinically unresolved and inappropriate to discharge to SNF at this time w/ stool incontinence # atrial fibrillation with rapid ventricular rate - acute, cont on metop 25 bid , may need increase as his activity increases - cont on coumadin once INR < 3 # acute hyponatremia - patient with ongoing losses and low Jose Antonio, increase solute intake, stopped IVF - stop salt tabs and gauge effect # acute blood loss anemia - 2/2 colitis and supratherapeutic INR, cont to monitor Hgb # JOHN on CKD stage III - 2/2 hypovolemia, Cr returned to baseline 2/2 IVF, cont to monitor # Mild hypothyroidism with elevated TSH and low free T3 - cont new low-dose Synthroid to his regimen he needs repeat labs in 2 months # bioprostatic mitral and tricuspid valves - continue monitoring anticoagulation - INR 3.8 holding warfarin today, goal 2-3 # chronic HTN - cont home Rx # chronic diastolic CHF - no e/o acute exacerbation, currently on room air, legs becoming edematous w/ tx of hyponatremia, so stopped IVF 05/10 # gout, chronic - no flare # acute lower GI hemorrhage - 2/2 elevated INR > 9 at presentation with concurrent colitis Hgb remains 11 this morning - Continue to monitor H&H daily # CAD, chronic # prophylaxis on anticoagulation # diet regular # disposition likely SNF when medically stable Subjective: ongoing stool in briefs Objective: Vital Signs Temp Pulse Resp BP Pulse Ox 36.4 C 104 H 17 120/80 95 05/10/17 16:36 05/10/17 16:36 05/10/17 16:36 05/10/17 16:36 05/10/17 16:36 Laboratory Results 05/10/17 03:40 05/10/17 03:40 05/09/17 05/10/17 05/11/17 05:59 05:59 05:59 Intake Total 1650 100 300 Output Total 800 700 1 Balance 850 -600 299 PT 37.2 SEC (12.0-15.0) H 05/10/17 03:40 INR 3.81 (0.83-1.16) H 05/10/17 03:40 - Physical Exam Constitutional: no apparent distress, not in pain, chronically ill appearing, No uncomfortable Cardiovascular: systolic murmur (I/ at sternum), irregularly irregular, edema (1+ bilat LE), No tachycardia Respiratory: no respiratory distress, no rales or rhonchi, clear to auscultation Gastrointestinal: normoactive bowel sounds, distension (moderate), No tenderness , No guarding Neurologic: AAOx3, sensation intact bilaterally, No weakness Psychiatric: interacting appropriately, not anxious, not encephalopathic, thought process linear ICD10 Worksheet Patient Problems: Problems Problem Status Onset Atrial fibrillation Acute Dehydration Acute Diarrhea Acute Elevated troponin Acute Leukocytosis Acute Acute blood loss anemia Acute CHF exacerbation Acute Coagulopathy Acute S/P TVR (tricuspid valve replacement) Acute 12/25/15 Permanent atrial fibrillation Chronic Severe tricuspid regurgitation Chronic
[2017-05-10] MEDS ORDERED: PHYTONADIONE 100 MCG TAB PO ONE (19:56)
--- NOTE | 2017-05-10 19:58 | HOSPPROG ---
Hospitalist Progress Note Assessment/Plan: called for bloody stool - reviewed case with pharmacy INR climbing in absence of warfarin dosing since 05/07 vital signs stable will give Vitamin K 100mcg now recheck INR in am Objective: Vital Signs Temp Pulse Resp BP Pulse Ox 36.4 C 118 H 22 H 131/74 H 92 05/10/17 19:55 05/10/17 19:55 05/10/17 19:55 05/10/17 19:55 05/10/17 19:55 Laboratory Results 05/10/17 03:40 05/10/17 03:40 05/09/17 05/10/17 05/11/17 05:59 05:59 05:59 Intake Total 1650 100 300 Output Total 800 700 1 Balance 850 -600 299 PT 37.2 SEC (12.0-15.0) H 05/10/17 03:40 INR 3.81 (0.83-1.16) H 05/10/17 03:40 ICD10 Worksheet Patient Problems: Problems Problem Status Onset Atrial fibrillation Acute Dehydration Acute Diarrhea Acute Elevated troponin Acute Leukocytosis Acute Acute blood loss anemia Acute CHF exacerbation Acute Coagulopathy Acute S/P TVR (tricuspid valve replacement) Acute 12/25/15 Permanent atrial fibrillation Chronic Severe tricuspid regurgitation Chronic
[2017-05-10] MEDS: GABAPENTIN 300 MG CAP PO SCH (22:32)
[2017-05-11 04:55] LABS: PLATELET COUNT 167 10^3/uL (150-400)
[2017-05-11 05:03] LABS: INR 3.41 (0.83-1.16); PROTIME(PATIENT) 34.2 SEC (12.0-15.0)
[2017-05-11] MEDS: VANCOMYCIN 125 MG/2.5 ML UDL PO SCH ×4 (06:25→20:02)
[2017-05-11] MEDS: LEVOTHYROXINE 25 MCG TAB PO SCH (06:26)
[2017-05-11] MEDS: OXYCODONE/APAP 5/325 TAB PO PRN ×2 (09:39→17:36)
[2017-05-11] MEDS: MULTIVITAMINS 1 EACH TAB PO SCH (09:39)
[2017-05-11] MEDS: METOPROLOL TARTRATE 50 MG TAB PO SCH ×2 (09:39→20:02)
--- NOTE | 2017-05-11 14:47 | ASMTCMCOM ---
CM Note CM Note Notes: 05/11/2017 Case Management Note Faxed updates to the [facility] in [place]. Requested [facility] run authorization for placement. Case Management d/c poc: [facility] pending auth. Case Management to follow. Date Signed: 05/11/2017 02:45 PM Electronically Signed By:Annalisa Araya RN
--- NOTE | 2017-05-11 18:10 | HOSPPROG ---
Hospitalist Progress Note Assessment/Plan: Assessment: 81-year-old male presents with acute enterocolitis secondary to C diff Plan: # acute colitis secondary to C .diff - ongoing loose BMs today, stool incontinence, minimal abd pain - cont on PO vanco, clinically unresolved and inappropriate to discharge to SNF at this time w/ stool incontinence # atrial fibrillation with rapid ventricular rate - acute, increased RVR today , increase metop to 50mg bid and gauge effect - cont on coumadin once INR < 3 # acute hyponatremia - patient with ongoing losses and low Jose Antonio, increased solute intake, off IVF - stopped salt tabs and gauge effect # acute blood loss anemia - 2/2 colitis and supratherapeutic INR, cont to monitor Hgb # JOHN on CKD stage III - 2/2 hypovolemia, Cr returned to baseline 2/2 IVF, cont to monitor # Mild hypothyroidism with elevated TSH and low free T3 - cont new low-dose Synthroid to his regimen he needs repeat labs in 2 months # bioprostatic mitral and tricuspid valves - continue monitoring anticoagulation - INR 3.4 holding warfarin today, goal 2-3 # chronic HTN - cont home Rx # chronic diastolic CHF - no e/o acute exacerbation, legs edematous but on RA # gout, chronic - no flare # acute lower GI hemorrhage - 2/2 elevated INR > 9 at presentation with concurrent colitis, one BRBPR last PM and received Vit K - Continue to monitor H&H daily # CAD, chronic # prophylaxis on anticoagulation # diet regular # disposition likely SNF when medically stable Subjective: one BRBPR last PM, ongoing stool incontinence today Objective: Vital Signs Temp Pulse Resp BP Pulse Ox 35.9 C L 100 20 102/64 94 05/11/17 14:58 05/11/17 14:58 05/11/17 14:58 05/11/17 14:58 05/11/17 14:58 Laboratory Results 05/11/17 04:43 05/11/17 04:43 05/10/17 05/11/17 05/12/17 05:59 05:59 05:59 Intake Total 884 379 2315 Output Total 700 301 1 Balance -406 661 3792 PT 34.2 SEC (12.0-15.0) H 05/11/17 04:43 INR 3.41 (0.83-1.16) H 05/11/17 04:43 - Physical Exam Constitutional: no apparent distress, not in pain, chronically ill appearing, uncomfortable Cardiovascular: irregularly irregular, tachycardia, edema (1+ bilat LE), No systolic murmur Respiratory: no respiratory distress, no rales or rhonchi, clear to auscultation Gastrointestinal: No normoactive bowel sounds (hyperactive bowel sounds), No tenderness, No guarding, No distension Neurologic: AAOx3, sensation intact bilaterally, No weakness Psychiatric: interacting appropriately, not anxious, not encephalopathic, thought process linear ICD10 Worksheet Patient Problems: Problems Problem Status Onset CHF exacerbation Acute Severe tricuspid regurgitation Chronic S/P TVR (tricuspid valve replacement) Acute 12/25/15 Acute blood loss anemia Acute Coagulopathy Acute Permanent atrial fibrillation Chronic Atrial fibrillation Acute Dehydration Acute Leukocytosis Acute Diarrhea Acute Elevated troponin Acute
[2017-05-11] MEDS: GABAPENTIN 300 MG CAP PO SCH (20:02)
[2017-05-12] MEDS: OXYCODONE/APAP 5/325 TAB PO PRN ×3 (00:38→19:54)
[2017-05-12 05:14] LABS: PLATELET COUNT 179 10^3/uL (150-400)
[2017-05-12] MEDS: VANCOMYCIN 125 MG/2.5 ML UDL PO SCH ×4 (06:19→19:54)
[2017-05-12] MEDS: LEVOTHYROXINE 25 MCG TAB PO SCH (06:19)
[2017-05-12] MEDS: METOPROLOL TARTRATE 50 MG TAB PO SCH ×2 (09:19→19:54)
[2017-05-12] MEDS: MULTIVITAMINS 1 EACH TAB PO SCH (09:19)
[2017-05-12] MEDS ORDERED: FUROSEMIDE 40 MG/4 ML VIAL IVP ONE (09:50)
--- NOTE | 2017-05-12 09:53 | HOSPPROG ---
Hospitalist Progress Note Assessment/Plan: Assessment: 81-year-old male presents with acute enterocolitis secondary to C diff Plan: # acute colitis secondary to C .diff - ongoing loose BMs today, stool incontinence and abd distension worsening, minimal abd pain - get abd x-ray to eval for toxic megacolon - cont on PO vanco, clinically unresolved and inappropriate to discharge to SNF at this time # atrial fibrillation with rapid ventricular rate - acute, increased RVR today , increase metop to 50mg bid and gauge effect - cont on coumadin once INR < 3 # acute hyponatremia - patient with ongoing losses and low Jose Antonio, increased solute intake, off IVF - stopped salt tabs and gauge effect # acute blood loss anemia - 2/2 colitis and supratherapeutic INR, cont to monitor Hgb # JOHN on CKD stage III - 2/2 hypovolemia, Cr returned to baseline 2/2 IVF, cont to monitor # Mild hypothyroidism with elevated TSH and low free T3 - cont new low-dose Synthroid to his regimen he needs repeat labs in 2 months # bioprostatic mitral and tricuspid valves - continue monitoring anticoagulation - INR 3.4 holding warfarin today, goal 2-3 # chronic HTN - cont home Rx # suspected acute on chronic diastolic CHF - patient becoming more tachypneic this AM, new problem, further w/u indicated. Has been off diuretic since admission, off IVF 48hrs, has hypervolemia on exam - initial CXR w/ interstitial infiltrates and RLL consolidation (personally interpreted) - get stat CXR/BNP/trop - give 40mg IV lasix bid now - monitor strict I/O/weights # gout, chronic - no flare # acute lower GI hemorrhage - 2/2 elevated INR > 9 at presentation with concurrent colitis, received Vit K - Continue to monitor H&H daily # CAD, chronic # prophylaxis on anticoagulation # diet regular # disposition likely SNF when medically stable Subjective: visibly labored breathing, forming BMs Objective: Vital Signs Temp Pulse Resp BP Pulse Ox 36.3 C 109 H 15 120/79 93 05/12/17 09:17 05/12/17 09:17 05/12/17 09:17 05/12/17 09:17 05/12/17 09:17 Laboratory Results 05/12/17 04:58 05/12/17 04:58 05/11/17 05/12/17 05/13/17 05:59 05:59 05:59 Intake Total 600 1500 Output Total 301 2 Balance 299 1498 PT 34.2 SEC (12.0-15.0) H 05/11/17 04:43 INR 3.41 (0.83-1.16) H 05/11/17 04:43 - Physical Exam Constitutional: not in pain, chronically ill appearing, uncomfortable, No no apparent distress (moderate ) Cardiovascular: irregularly irregular, tachycardia, edema (2+ bilat LE), No systolic murmur Respiratory: reduced air movement (bilat bases), expiratory wheeze, respiratory distress (visible tachypnea), No bronchial breath sounds Gastrointestinal: normoactive bowel sounds, distension (worsening, severely), No tenderness, No guarding Neurologic: AAOx3, sensation intact bilaterally, No weakness Psychiatric: interacting appropriately, not anxious, not encephalopathic, thought process linear ICD10 Worksheet Patient Problems: Problems Problem Status Onset Atrial fibrillation Acute Dehydration Acute Diarrhea Acute Elevated troponin Acute Leukocytosis Acute Acute blood loss anemia Acute CHF exacerbation Acute Coagulopathy Acute S/P TVR (tricuspid valve replacement) Acute 12/25/15 Permanent atrial fibrillation Chronic Severe tricuspid regurgitation Chronic
[2017-05-12 10:27] LABS: INR 2.74 (0.83-1.16); PROTIME(PATIENT) 28.9 SEC (12.0-15.0)
--- NOTE | 2017-05-12 14:14 | WOCRNPDOC ---
WOCRN Advanced Assessment Note - Skin Integrity Problem, Advanced Assess Left Coccyx Pressure Injury Dressing Type: Open to Air Neida Wound Tissue: Blanching Wound Bed Color: Minerva Skin Integrity Problem Comment: Patient rolled unassisted to his left side. Area of documented wound now pink throughout, intact and blanching. Wound care does not need to continue to follow this wound. Please reconsult PRN.
[2017-05-12] MEDS ORDERED: WARFARIN SODIUM 2.5 MG TAB PO ONE (16:00)
[2017-05-12] MEDS: FUROSEMIDE 40 MG/4 ML VIAL IVP SCH (16:17)
[2017-05-12] MEDS: ACETAMINOPHEN 325 MG TAB PO PRN (16:17)
[2017-05-12] MEDS: GABAPENTIN 300 MG CAP PO SCH (19:54)
[2017-05-13 03:37] LABS: PLATELET COUNT 176 10^3/uL (150-400)
[2017-05-13 03:51] LABS: INR 2.65 (0.83-1.16); PROTIME(PATIENT) 28.2 SEC (12.0-15.0)
[2017-05-13] MEDS: VANCOMYCIN 125 MG/2.5 ML UDL PO SCH ×4 (06:29→20:15)
[2017-05-13] MEDS: LEVOTHYROXINE 25 MCG TAB PO SCH (06:29)
[2017-05-13] MEDS: OXYCODONE/APAP 5/325 TAB PO PRN ×3 (06:32→20:27)
[2017-05-13] MEDS ORDERED: IOPAMIDOL (ISOVUE-300) 100 ML BTL ONE (08:36)
[2017-05-13] MEDS: METOPROLOL TARTRATE 50 MG TAB PO SCH ×2 (09:28→20:14)
[2017-05-13] MEDS: MULTIVITAMINS 1 EACH TAB PO SCH (09:28)
[2017-05-13] MEDS: FUROSEMIDE 40 MG/4 ML VIAL IVP SCH ×2 (09:29→16:39)
[2017-05-13] MEDS ORDERED: WARFARIN SODIUM 2.5 MG TAB PO ONE (16:00)
[2017-05-13] MEDS ORDERED: TORSEMIDE 20 MG TAB PO PRN (18:17)
--- NOTE | 2017-05-13 18:17 | HOSPPROG ---
Hospitalist Progress Note Assessment/Plan: Assessment: 81-year-old male presents with acute enterocolitis secondary to C diff c/b acute diastolic CHF exacerbation and afib w/ RVR Plan: # acute colitis secondary to C .diff - BMs solidifying today but continues to have bowel incontinence s/p PO contrast of CT scan yesterday - CT abd w/o megacolon, confirms colitis - off PPI - cont on PO vanco, clinically unresolved, recommend extended course of PO vanco given severity w/ outpt ID f/u # atrial fibrillation with rapid ventricular rate - acute, increased metop to 50mg bid and gauge effect - cont on coumadin # acute hyponatremia - resolved # acute blood loss anemia - 2/2 colitis and supratherapeutic INR, cont to monitor Hgb # JOHN on CKD stage III - 2/2 hypovolemia, resolved # Mild hypothyroidism with elevated TSH and low free T3 - cont new low-dose Synthroid to his regimen he needs repeat labs in 2 months # bioprostatic mitral and tricuspid valves - continue monitoring anticoagulation - INR 2.65, cont coumadin # chronic HTN - on bblocker # acute on chronic diastolic CHF - pt became more tachypneic on 05/12 s/p holding diuretics since admit, and chest imaging confirmed acutely worsening pleural effusions/pulm edema - BNP 5300, ongoing LE edema - s/p IV lasix 05/12 and 05/13, adjust back to home torsemide/metolzone/aldactone 05/14 AM K/Cr/Na permitting, holding home KCl at this time - main limiting factor for DC at this time, remains clinically unresolved # right lung consolidation - unclear etiology, patient was treated w/ Abx several weeks ago by Dr. Quigley for what was believed to be PNA, then he developed CDiff, and now the consolidation persists on chest CT (personally interpreted) - mild cough, but if productive, send sputum Cx - d/w patient, we both agree that holding on additional Abx at this time will help facilitate better CDiff tx, and he is not really manifesting PNA clinically , so will hold on addition of Abx and monitor WBC/Sx # gout, chronic - no flare # acute lower GI hemorrhage - 2/2 elevated INR > 9 at presentation with concurrent colitis, received Vit K - Continue to monitor H&H daily # CAD, chronic, restarted ASA # prophylaxis on anticoagulation # diet regular # disposition likely SNF when medically stable, possibly 05/14 pending stabilization of above High-level medical complexity, high risk of worsening morbidity and/or mortality secondary to the issues as outlined above. Subjective: patient w/ some stool incontinence, tolerating PO Objective: Vital Signs Temp Pulse Resp BP Pulse Ox 36.3 C 89 12 110/65 94 05/13/17 15:07 05/13/17 15:07 05/13/17 15:07 05/13/17 15:07 05/13/17 15:07 Laboratory Results 05/13/17 03:12 05/13/17 03:12 05/12/17 05/13/17 05/14/17 05:59 05:59 05:59 Intake Total 3518 002 1495 Output Total 2 500 700 Balance 1498 -200 500 PT 28.2 SEC (12.0-15.0) H 05/13/17 03:12 INR 2.65 (0.83-1.16) H 05/13/17 03:12 - Pending Discharge Pending Discharge Within 48 Hours: Yes Pending Discharge Date: 05/15/17 Pending Discharge Time: 11:00 - Physical Exam Constitutional: no apparent distress, not in pain, chronically ill appearing, uncomfortable Cardiovascular: irregularly irregular, tachycardia, edema (2+ bilat LE edema), No systolic murmur Respiratory: reduced air movement (bilat bases), inspiratory crackles, No expiratory wheeze, No bronchial breath sounds, No respiratory distress Gastrointestinal: normoactive bowel sounds, distension (moderate), No tenderness , No guarding Neurologic: AAOx3, No facial droop Psychiatric: interacting appropriately, not anxious, not encephalopathic, thought process linear ICD10 Worksheet Patient Problems: Problems Problem Status Onset Atrial fibrillation Acute Dehydration Acute Diarrhea Acute Elevated troponin Acute Leukocytosis Acute Acute blood loss anemia Acute CHF exacerbation Acute Coagulopathy Acute S/P TVR (tricuspid valve replacement) Acute 12/25/15 Permanent atrial fibrillation Chronic Severe tricuspid regurgitation Chronic
[2017-05-13] MEDS: GABAPENTIN 300 MG CAP PO SCH (20:14)
[2017-05-13] MEDS: FERROUS SULFATE 325 MG TAB PO SCH (20:14)
[2017-05-14 04:11] LABS: PLATELET COUNT 178 10^3/uL (150-400)
[2017-05-14 04:19] LABS: INR 2.66 (0.83-1.16); PROTIME(PATIENT) 28.3 SEC (12.0-15.0)
[2017-05-14] MEDS: OXYCODONE/APAP 5/325 TAB PO PRN ×2 (06:00→12:25)
[2017-05-14] MEDS: VANCOMYCIN 125 MG/2.5 ML UDL PO SCH ×2 (06:00→12:25)
[2017-05-14] MEDS: LEVOTHYROXINE 25 MCG TAB PO SCH (06:00)
[2017-05-14] MEDS ORDERED: ASPIRIN 81 MG CHEWABLE TAB PO SCH (09:00)
[2017-05-14] MEDS ORDERED: METOLAZONE 5 MG TAB PO SCH (09:00)
[2017-05-14] MEDS ORDERED: SPIRONOLACTONE 25 MG TAB PO SCH (09:00)
--- NOTE | 2017-05-14 09:18 | HOSPPROG ---
Hospitalist Progress Note Assessment/Plan: 81-year-old male found to have Clostridium difficile following antibiotic treatment for outpatient pneumonia. Patient is new to me today Assessment: 81-year-old male presents with acute enterocolitis secondary to C diff c/b acute diastolic CHF exacerbation and afib w/ RVR Plan: # acute colitis secondary to C .diff - BMs solidifying today but continues to have bowel incontinence s/p PO contrast of CT scan yesterday - CT abd w/o megacolon, confirms colitis - off PPI - cont on PO vanco, clinically unresolved, recommend extended course of PO vanco given severity w/ outpt ID f/u # atrial fibrillation with rapid ventricular rate - acute, increased metop to 50mg bid and gauge effect - cont on coumadin # acute hyponatremia - resolved # acute blood loss anemia - 2/2 colitis and supratherapeutic INR, cont to monitor Hgb # JOHN on CKD stage III - 2/2 hypovolemia, resolved # Mild hypothyroidism with elevated TSH and low free T3 - cont new low-dose Synthroid to his regimen he needs repeat labs in 2 months # bioprostatic mitral and tricuspid valves - continue monitoring anticoagulation - INR 2.65, cont coumadin # chronic HTN - on bblocker # acute on chronic diastolic CHF - pt became more tachypneic on 05/12 s/p holding diuretics since admit, and chest imaging confirmed acutely worsening pleural effusions/pulm edema - BNP 5300, ongoing LE edema - s/p IV lasix 05/12 and 05/13, adjust back to home torsemide/metolzone/aldactone 05/14 AM K/Cr/Na permitting, holding home KCl at this time - main limiting factor for DC at this time, remains clinically unresolved # right lung consolidation - unclear etiology, patient was treated w/ Abx several weeks ago by Dr. Quigley for what was believed to be PNA, then he developed CDiff, and now the consolidation persists on chest CT (personally interpreted) - mild cough, but if productive, send sputum Cx - d/w patient, we both agree that holding on additional Abx at this time will help facilitate better CDiff tx, and he is not really manifesting PNA clinically , so will hold on addition of Abx and monitor WBC/Sx # gout, chronic - no flare # acute lower GI hemorrhage - 2/2 elevated INR > 9 at presentation with concurrent colitis, received Vit K - Continue to monitor H&H daily # CAD, chronic, restarted ASA # prophylaxis on anticoagulation # diet regular # disposition likely SNF when medically stable, possibly 05/14 pending stabilization of above High-level medical complexity, high risk of worsening morbidity and/or mortality secondary to the issues as outlined above. Objective: Vital Signs Temp Pulse Resp BP Pulse Ox 36.5 C 90 17 109/64 90 L 05/14/17 07:53 05/14/17 07:53 05/14/17 07:53 05/14/17 07:55 05/14/17 07:53 Laboratory Results 05/14/17 03:10 05/14/17 03:10 05/13/17 05/14/17 05/15/17 05:59 05:59 05:59 Intake Total 300 1700 960 Output Total 500 700 Balance -200 1000 960 PT 28.3 SEC (12.0-15.0) H 05/14/17 03:10 INR 2.66 (0.83-1.16) H 05/14/17 03:10 ICD10 Worksheet Patient Problems: Problems Problem Status Onset CHF exacerbation Acute Severe tricuspid regurgitation Chronic S/P TVR (tricuspid valve replacement) Acute 12/25/15 Acute blood loss anemia Acute Coagulopathy Acute Permanent atrial fibrillation Chronic Atrial fibrillation Acute Dehydration Acute Leukocytosis Acute Diarrhea Acute Elevated troponin Acute
[2017-05-14] MEDS: ACETAMINOPHEN 325 MG TAB PO PRN (09:37)
[2017-05-14] MEDS: FERROUS SULFATE 325 MG TAB PO SCH (09:38)
[2017-05-14] MEDS: METOPROLOL TARTRATE 50 MG TAB PO SCH (09:38)
[2017-05-14] MEDS: MULTIVITAMINS 1 EACH TAB PO SCH (09:38)
[2017-05-14 11:40] VITALS: BP 102/64; PULSE 85; RESP 22; TEMP 97.2; O2SAT 93
--- NOTE | 2017-05-14 14:03 | PDIAF ---
- Diagnosis Code Status: Do Not Resuscitate - Medication Management Discharge Medications: Medications to Continue on Transfer Multivitamins [Multivitamin (*)] 1 each PO DAILY 10/02/15 [Last Taken 05/04/17] Warfarin Sodium [Coumadin 5MG (*)] 5 mg PO SUTUTHSA@21 10/25/15 [Last Taken 01/10] Pantoprazole Sodium [Protonix 40mg (*)] 40 mg PO DAILY 12/21/15 [Last Taken 02/09] Spironolactone [Aldactone 25 MG (*)] 12.5 mg PO DAILY 12/21/15 [Last Taken 05/03] Warfarin Sodium [Coumadin 7.5MG (*)] 7.5 mg PO MWF@21 12/21/15 [Last Taken 05/01] Ferrous Sulfate [Ferrous Sulf 325 MG (*)] 325 mg PO BID 05/04/17 [Last Taken 02/09] Gabapentin [Neurontin 300 MG (*)] 300 mg PO HS 05/04/17 [Last Taken 05/03/17] Metolazone [Zaroxolyn 5MG (*)] 5 mg PO DAILY 05/04/17 [Last Taken 05/03/17] Metoprolol Succinate Xr [Toprol Xl 25 mg (*)] 25 mg PO HS 05/04/17 [Last Taken 05/03/17] Potassium Cl [Klor-Con 20 meq (*)] 40 meq PO TID 05/04/17 [Last Taken 05/03/17 21:00] oxyCODONE/APAP 5/325 [Percocet 5/325 (*)] 1 tab PO Q6HRS PRN 05/04/17 [Last Taken 05/03/17] Levothyroxine [Synthroid 25 mcg (*)] 25 mcg PO DAILY AT 6AM #30 tab 05/14/17 [ Last Taken Unknown] Torsemide 20 mg PO Q2D #30 tablet 05/14/17 [Last Taken Unknown] Vancomycin [Vancocin Oral Liquid] 125 mg PO QID 14 Days udl 05/14/17 [Last Taken Unknown] Discharge Medications: Refer to the Discharge Home Medication list for PRN reason. 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
--- NOTE | 2017-05-14 14:31 | GDS ---
[f rep st] DISCHARGE SUMMARY NEW AND ACUTE DIAGNOSES: 1. Acute Clostridium difficile colitis. 2. Anemia secondary to gastrointestinal bleeding secondary to the colitis, status post 1 unit PRBC. 3. Acute atrial fibrillation. Rate controlled on metoprolol. 4. Fvvyd-xh-qhackfr kidney disease, stage III, now resolved. 5. Hyponatremia, resolved. 6. Bioprosthetic mitral and tricuspid valves. Will maintain on anticoagulation. 7. Chronic hypertension, on beta blockers. 8. Gntjr-bj-awgspib diastolic congestive heart failure, now resolving. 9. Acute pneumonitis, resolving. CHRONIC DIAGNOSES: 1. Gout without a flare during this hospitalization. 2. Known coronary artery disease. Chronic without acute ischemia. CONSULTATIONS: None. PROCEDURES: None. HOSPITAL COURSE: Evlnyr-ttsp-zzh male, with known numerous chronic medical problems, presented with acute mucus and bloody stools and was found to have acute colitis by CT scan of the abdomen. Studies confirmed Clostridium difficile colitis, believed secondary to prior use of Levaquin for an acute re spiratory infection 2-3 weeks prior to the admission. His anemia worsened and required 1 unit of PRB Cs during hospitalization. Atrial fibrillation was rate controlled with beta blockers. His Coumadin anticoagulation continued throughout the hospital course. Initially, he was supratherapeutic, with an INR of 9.9, believed secondary to the use of antibiotics prior to admission. This was allowed to declined nicely and, at discharge, his INR is 2.6. As noted, he did suffer some GI bleeding and rece ived a unit of packed cells for his anemia without complications. Gentleman was quite weak, requiring PT and OT for assistance, and will be discharged to a [facility] center. DISCHARGE MEDICATIONS: New medications are vancomycin oral liquid 125 mg q.i.d. for 14 days, Synthro id 25 mcg daily, torsemide 20 mg every other day. Continued medications are Coumadin 5 mg on Thursday, Thursday, , Thursday, and 7.5 mg on Thursday, Thursday, Thursday, potassium 40 mg t.i.d., pantoprazole 40 mg daily. Metoprolol succinate 25 mg h.s ., Aldactone 12.5 mg daily, Percocet 5/325 mg 1 p.o. q.6 hours p.r.n., multivitamin daily, metolazone 5 mg daily, Neurontin 300 mg h.s., ferrous sulfate 325 mg b.i.d. put in and also a new medication or of the tarsus Stopped medications are aspirin 81 mg a day and torsemide 20 mg p.o. daily. Note, that the torsemide has been changed from daily to every other as this, I believe, will provide adequate diuresis without excessive diuresis. Also, note that his aspirin has been stopped in light of his recent GI bleed, but this can restart restarted in 2-4 weeks for coronary artery disease. PLAN: The gentleman will be discharged to shelter facility, [facility]. Followup will be through his PCP following his discharge from [facility]. Patient's PCP is Dr. Adiel Ray who will be the followup following [facility]. Time this discharge required 50 minutes, greater than 50% to senior genetic counselor, coordinate his care, and establ carson his needs for rehabilitation at [facility]. /[id number]/MODL
[2017-05-14] MEDS ORDERED: WARFARIN SODIUM 2.5 MG TAB PO ONE (16:00)
== END 2017-05-14 15:51 | DRG 371 ==
LOC: F2W 14:50
PROVIDERS: ADMIT Internal Medicine; ATTEND Internal Medicine Pulmonary Disease
DX: A04.72 Enterocolitis due to Clostridium difficile, not specified as recurrent (principal); I50.33 Acute on chronic diastolic (congestive) heart failure; N18.3 Chronic kidney disease, stage 3 (moderate); I13.0 Hypertensive heart and chronic kidney disease with heart failure and stage 1 through stage 4 chronic kidney disease, or unspecified chronic kidney disease; D62 Acute posthemorrhagic anemia; E87.1 Hypo-osmolality and hyponatremia; I48.91 Unspecified atrial fibrillation; H90.5 Unspecified sensorineural hearing loss; M10.9 Gout, unspecified; E03.9 Hypothyroidism, unspecified; L89.159 Pressure ulcer of sacral region, unspecified stage; I25.10 Atherosclerotic heart disease of native coronary artery without angina pectoris; R91.8 Other nonspecific abnormal finding of lung field; Z95.3 Presence of xenogenic heart valve; Z79.01 Long term (current) use of anticoagulants
CPT/HCPCS: 84481-90; 97110-GP; 97116-GP; 97161-GP; 97166-GO; 97530-GO; 97530-GP; 97535-GO; G8978-GP-CJ; G8979-GP-CI; G8987-GO-CJ; G8988-GO-CI; G8989-GO-CI; J1940; J3430; Q9967

== ENCOUNTER 2017-11-30 08:50 | Inpatient (IN) | payer OTHER ==
--- NOTE | 2017-11-30 09:12 | EDPHY ---
H & P Time Seen by Provider: 11/30/17 09:10 HPI/ROS: CHIEF COMPLAINT: Abnormal kidneys HISTORY OF PRESENT ILLNESS: 82-year-old man has a history of congestive heart failure and was seen at [facility] last Thursday and apparently at that time Cardiology wanted to admit him for some type of kidney problem per the patient. Labs reveal BUN greater than 120 and creatinine 2.0 at that time. Patient presents today 5 days later because of that request. He says he otherwise feels fine except for being very tired. He is not short of breath, does not have chest pain, has chronic lower leg swelling, no diarrhea, is still making urine. REVIEW OF SYSTEMS: Eye: no change in vision ENT: no sore throat Cardiac: no chest pain or syncope Pulmonary: no cough or SOB Abdomen: no vomiting, diarrhea, abdominal pain Musculoskeletal: Bilateral leg swelling chronic Skin: Bilateral redness and venous stasis changes both legs, chronic Neuro: no headache Constitutional: no fever : no urinary symptoms A comprehensive 10 point review of systems is otherwise negative aside from elements mentioned in the history of present illness. PAST MEDICAL HISTORY: Includes mitral and tricuspid valve replacement, AFib, CHF, hypertension. Chronic lower extremity swelling, hernia repair and tonsillectomy. Gout. Clostridium difficile diagnosed in April of 2017 Social history: Here with his brother General Appearance: Alert and conversant, cooperative. Eyes: No scleral icterus. ENT, Mouth: Normal mucous membranes. Respiratory: Normal respiratory effort, breath sounds equal, lungs are clear to auscultation. Cardiovascular: Irregular rate and rhythm. Gastrointestinal: Abdomen is soft and non tender. Neurological: Alert, face symmetric, normal motor and sensory in extremities. Skin: Bilateral redness venous stasis changes both legs Musculoskeletal: 4+ peripheral edema, chronic, bilateral. Psychiatric: Not agitated. Emergency Department course/MDM: EKG shows atrial fibrillation. Plan for troponin, protime, electrolytes and chest x-ray. Labs reviewed, admission for acute kidney injury. Thought most likely due to diuretics. Discussed 1011 with Ronda Munoz. 1024: Rubi consulted. Agrees with admission for patient with uremia, who requires further diuresis. Smoking Status: Former smoker Constitutional: Initial Vital Signs Temperature (C) 36.5 C 11/30/17 08:56 Heart Rate 90 11/30/17 08:56 Respiratory Rate 18 11/30/17 08:56 Blood Pressure 115/58 L 11/30/17 08:56 O2 Sat (%) 99 11/30/17 08:56 O2 Delivery Mode Room Air Allergies/Adverse Reactions: No Known Allergies Allergy (Verified 11/30/17 08:56) Home Medications: Medication Instructions Recorded Multivitamins [Multivitamin (*)] 1 each PO DAILY 10/02/15 Warfarin Sodium [Coumadin 5MG (*)] 5 mg PO SUTUWETHSA@21 10/25/15 Pantoprazole Sodium [Protonix 40mg 40 mg PO DAILY 12/21/15 (*)] Spironolactone [Aldactone 25 MG 12.5 mg PO DAILY 12/21/15 (*)] Warfarin Sodium [Coumadin 7.5MG 7.5 mg PO MOFR@21 12/21/15 (*)] Ferrous Sulfate [Ferrous Sulf 325 325 mg PO BID 05/04/17 MG (*)] Gabapentin [Neurontin 300 MG (*)] 300 mg PO HS 05/04/17 Metolazone [Zaroxolyn 5MG (*)] 5 mg PO MOWE 05/04/17 Metoprolol Succinate Xr [Toprol Xl 25 mg PO HS 05/04/17 25 mg (*)] Potassium Cl [Klor-Con 20 meq (*)] 40 meq PO TID 05/04/17 oxyCODONE/APAP 5/325 [Percocet 1 tab PO Q6HRS PRN 05/04/17 5/325 (*)] Herbals/Supplements -Info Only 1 ea PO DAILY 11/30/17 Levothyroxine [Synthroid 75 mcg 75 mcg PO DAILY06 11/30/17 (*)] Sennosides/Docusate Sodium 1 - 2 each PO DAILY PRN 11/30/17 [Senna-Docusate Sodium Tablet] Torsemide 100 mg PO DAILY 11/30/17 Medical Decision Making - Diagnostics EKG Interpretation: 12-lead EKG interpreted by me; official reading is in computer system. My interpretation is atrial fibrillation with low extremity lead voltage in long QT. No acute ischemic changes per Imaging Results: Imaging Impressions Chest X-Ray 11/30/17 09:22 Impression: 1. Increased cardiomegaly. 2. Bilateral pleural effusions, right greater than left, with associated consolidation, slightly improved in the right lung. While consolidation is likely related to effusions and atelectasis, underlying pneumonia cannot be excluded. 3. Additional findings as above. Imaging: I viewed and interpreted images myself Consult/Admit Bed Type: [place] [facility] - Data Points Laboratory Results: Laboratory Results 11/30/17 09:22 11/30/17 09:22 1011/30/17 11/30/17 09:26 09:22 09:22 WBC RBC Hgb Hct MCV MCH MCHC RDW Plt Count MPV Neut % (Auto) Lymph % (Auto) Cobb % (Auto) Eos % (Auto) Baso % (Auto) Nucleat RBC Rel Count Absolute Neuts (auto) Absolute Lymphs (auto) Absolute Monos (auto) Absolute Eos (auto) Absolute Basos (auto) Absolute Nucleated RBC Immature Gran % Immature Gran # PT 29.2 SEC H SEC (12.0-15.0) INR 2.77 H (0.83-1.16) Sodium 138 mEq/L mEq/L (135-145) Potassium 3.9 mEq/L mEq/L (3.3-5.0) Chloride 95 mEq/L L mEq/L (97-110) Carbon Dioxide 26 mEq/l mEq/l (22-31) Anion Gap 17 mEq/L H mEq/L (8-16) BUN 128 mg/dL H* mg/dL (7-23) Creatinine 1.7 mg/dL H mg/dL (0.7-1.3) Estimated GFR 39 Glucose 115 mg/dL H mg/dL (70-100) Calcium 9.5 mg/dL mg/dL (8.5-10.4) POC Troponin I 0.03 ng/mL ng/mL (0.00-0.08) NT-Pro-B Natriuret Pep 3390 pg/mL H pg/mL (0-450) 11/30/17 09:22 WBC 5.92 10^3/uL 10^3/uL (3.80-9.50) RBC 3.44 10^6/uL L 10^6/uL (4.40-6.38) Hgb 10.8 g/dL L g/dL (13.7-17.5) Hct 32.0 % L % (40.0-51.0) MCV 93.0 fL fL (81.5-99.8) MCH 31.4 pg pg (27.9-34.1) MCHC 33.8 g/dL g/dL (32.4-36.7) RDW 14.6 % % (11.5-15.2) Plt Count 184 10^3/uL 10^3/uL (150-400) MPV 10.6 fL fL (8.7-11.7) Neut % (Auto) 72.4 % % (39.3-74.2) Lymph % (Auto) 13.3 % L % (15.0-45.0) Cobb % (Auto) 10.3 % % (4.5-13.0) Eos % (Auto) 2.7 % % (0.6-7.6) Baso % (Auto) 0.5 % % (0.3-1.7) Nucleat RBC Rel Count 0.0 % % (0.0-0.2) Absolute Neuts (auto) 4.28 10^3/uL 10^3/uL (1.70-6.50) Absolute Lymphs (auto) 0.79 10^3/uL L 10^3/uL (1.00-3.00) Absolute Monos (auto) 0.61 10^3/uL 10^3/uL (0.30-0.80) Absolute Eos (auto) 0.16 10^3/uL 10^3/uL (0.03-0.40) Absolute Basos (auto) 0.03 10^3/uL 10^3/uL (0.02-0.10) Absolute Nucleated RBC 0.00 10^3/uL 10^3/uL (0-0.01) Immature Gran % 0.8 % % (0.0-1.1) Immature Gran # 0.05 10^3/uL 10^3/uL (0.00-0.10) PT INR Sodium Potassium Chloride Carbon Dioxide Anion Gap BUN Creatinine Estimated GFR Glucose Calcium POC Troponin I NT-Pro-B Natriuret Pep Medications Given: Discontinued Medications Oxycodone/Acetaminophen (Percocet 5/325) 2 tab PO EDNOW ONE Stop: 11/30/17 10:00 Last Admin: 11/30/17 10:01 Dose: 2 tab Point of Care Test Results: Chemistry 11/30/17 09:26 POC Troponin I 0.03 ng/mL ng/mL (0.00-0.08) Departure - Departure Disposition: [facility] Acute Clinical Impression: Acute kidney injury, Peripheral edema Condition: Fair
--- NOTE | 2017-11-30 09:25 | CPEKG ---
Test Reason : OPEN Blood Pressure : / mmHG Vent. Rate : 086 BPM Atrial Rate : 000 BPM P-R Int : 179 ms QRS Dur : 113 ms QT Int : 421 ms P-R-T Axes : 000 000 045 degrees QTc Int : 504 ms Atrial fibrillation Low voltage, extremity leads Prolonged QT interval Confirmed by Shen Brandt ([id number]) on 11/30/2017 9:24:52 AM Referred By: Confirmed By:Shen Brandt
[2017-11-30 09:35] LABS: PLATELET COUNT 184 10^3/uL (150-400)
[2017-11-30 09:55] LABS: INR 2.77 (0.83-1.16); PROTIME(PATIENT) 29.2 SEC (12.0-15.0)
[2017-11-30] MEDS ORDERED: OXYCODONE/APAP 5/325 TAB PO ONE (09:59)
--- NOTE | 2017-11-30 10:43 | SOAPPROG ---
SOAP Progress Note Assessment/Plan: Assessment: Renal consult- see dictation # [id number] Verónica Meier MD [facility] pager [phone] 11/30/17 11:18 Objective: Vital Signs Temp Pulse Resp BP Pulse Ox 36.5 C 90 18 115/58 L 99 11/30/17 08:56 11/30/17 08:56 11/30/17 08:56 11/30/17 08:56 11/30/17 08:56 PT 29.2 SEC (12.0-15.0) H 11/30/17 09:22 INR 2.77 (0.83-1.16) H 11/30/17 09:22 ICD10 Worksheet Patient Problems: Problems Problem Status Onset Acute kidney injury Acute Peripheral edema Acute Acute blood loss anemia Acute Atrial fibrillation Acute CHF exacerbation Acute Coagulopathy Acute Dehydration Acute Diarrhea Acute Elevated troponin Acute Leukocytosis Acute S/P TVR (tricuspid valve replacement) Acute 12/25/15 Permanent atrial fibrillation Chronic Severe tricuspid regurgitation Chronic
--- NOTE | 2017-11-30 11:56 | GCON ---
IN-PATIENT NEPHROLOGY CONSULTATION REFERRING PHYSICIAN: Shen Brandt MD REASON FOR CONSULTATION: Acute kidney injury, volume overload. 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 The patien t is currently on torsemide 100 mg daily as well as metolazone 5 mg twice a week and notes severe low er extremity edema. He denies any nausea, vomiting or dizziness. He denies any shortness of breath. His chest x-ray here does show bilateral pleural effusions. His renal function has been difficult to manage with the need for diuretics as an outpatient. His creatinine today is 1.7 with a BUN of 12 8, sodium 138, potassium 3.9, and a bicarbonate of 26. Reviewing labs in the [facility] system it appea rs his creatinine over the past 2 months has been running anywhere from 1.7 to 2.2. His labs in [facility] showed a creatinine of 1.0. He notes that over the past several months his edema has been graduall y worsening and his diuretics have been titrated upwards. However, given the worsening renal functio n his metolazone dose has been decreased from daily to twice a week. He denies any NSAID use. He de nies any difficulty urinating or dysuria. He denies any known prostate enlargement problems. He has not started any new medications. He does report total body stiffness as he feels that his joints ar e achy. He denies any erythema or warmth in any single joint. He has not had any fevers. REVIEW OF SYSTEMS: GENERAL: He has some generalized malaise. No fevers. HEENT: No sore throat. PULMONARY: No shortness of breath. CARDIAC: No chest pain. He does have chronic lower extremity e mauricio that he thinks is progressively worsening. No palpitations. GI: No nausea, vomiting, or diarr hea. His appetite has been fairly good. : Denies any dysuria, hematuria, difficulty fully emptyi ng his bladder. SKIN: No new rashes. He notes his skin on his legs is chronically red. MUSCULOSKE LETAL: He has chronic total body joint stiffness but no erythema or warmth. ENDOCRINE: No history of diabetes. No polyuria or polydipsia. HEME: No bleeding. No rectal bleeding. PAST MEDICAL HISTORY: 1. Rheumatic valvular heart disease. He is status post mitral valve and tricuspid valve replacement s. He also has diastolic dysfunction. I do not have a copy of his recent echocardiogram but 1 from 2015 showed hyperdynamic LV function. Normally functioning bioprosthetic mitral and tricuspid valves with a gradient of tricuspid valve is 5 mmHg. No pericardial effusion. Both of his atrium are samantha rely dilated. No pericardial effusion. 2. History of Clostridium difficile colitis and GI bleeding secondary to colitis in April 2017 and r equired packed red cells at that time. 3. Atrial fibrillation. 4. Hypertension. 5. Gout. SOCIAL HISTORY: He denies any tobacco or alcohol use. He is a . FAMILY HISTORY: No kidney disease in the family. His father did have prostate cancer. PHYSICAL EXAM: VITAL SIGNS: His temperature is 36.8, blood pressure 94/58, his pulse is 83, he is s aturating 96% on room air. GENERAL: He is frail-appearing sitting in a chair in no acute distress. Not visibly tachypneic. HEENT: Mucous membranes are moist. NECK: Supple with elevated jugular ne ck vein. LUNGS: Decreased breath sounds at the bases bilaterally. CARDIOVASCULAR: Regular rate an d rhythm. A valvular click noted, no rub. ABDOMEN: Soft. Mild umbilical hernia. EXTREMITIES: 3+ edema bilaterally with venous stasis changes and darkening of the skin. BACK: No CVA tenderness. NEUROLOGIC: Alert and oriented x3. MUSCULOSKELETAL: No obvious joint erythema or warmth. He does have some kyphosis. LABS: Sodium 138, potassium 3.9, chloride 95, bicarbonate 26, BUN 128, creatinine 1.7, glucose 115, calcium 9.5, troponin 0.03. BNP 3390, white blood cell count 5.92, hemoglobin 10.8, hematocrit 32.0, platelets 184. INR 2.77. IMAGING: His chest x-ray showed bilateral pleural effusions and increased cardiomegaly. ASSESSMENT AND PLAN: The patient is an 82-year-old man with a history of congestive heart failure, s tatus post prior mitral and tricuspid valve replacement secondary to rheumatic heart disease, atrial fibrillation, gout, chronic kidney disease now presents with worsening renal function in the setting of volume overload: 1. Chronic kidney disease. He has had worsening renal function in the setting of volume overload an d congestive heart failure. Thus, this is likely cardiorenal in etiology. His current BUN is 128 an d creatinine 1.7 which is not far off from where he has been over the past few weeks. However, he is volume overloaded on exam with significant lower extremity edema and bilateral pleural effusions on chest x-ray. Thus, I agree that the patient warrants inpatient admission to help further manage this as he ultimately may need dialysis to manage this. It would be helpful to get a copy of his most re cent echocardiogram and I will defer to Cardiology if there is any further adjustment of medications we can do to optimize his cardiac function. At this point diuresis will prove tricky as I expect his renal function to continue to worsen. I would continue the torsemide and metolazone as you are with close following of his electrolytes. I did have a lengthy discussion with the patient today in the emergency room that we will try to manage this with diuretics but ultimately he may require dialysis to manage the volume status. I will check a renal ultrasound to exclude obstruction given his advanc ed age, but suspect again this is likely cardiorenal in etiology. 2. Congestive heart failure. I do not have a copy of his most recent echocardiogram as the last 1 i n the system is from 2016. He is status post bioprosthetic mitral valve and tricuspid valve that hav e been in there for a long time. He also has known diastolic dysfunction. I suspect he may have isauro e right-sided failure as well. It be helpful to get [facility] records and will defer to them if this needs to be repeated and if there is any further medication titration needed further to optimize cardiac function. 3. Joint stiffness: I will check a uric acid level. With this degree of diuresis I would not be layton rprised if this is contributing to some of the pain. I would avoid NSAIDs. We may need to give him a short course of prednisone to help manage this as well. 4. Anemia of chronic kidney disease: His hemoglobin is at goal but is on the low end. We will chec k iron stores. If he has significant proteinuria it may be worth also checking an SPEP, although fir st await the results of his urine studies. 5. 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 Thank you very much for the consultation. I have discussed my recommendations with the emergency med icine team. Please do not hesitate to call us with any questions. We will continue to follow closel y with you. /[id number]/MODL
[2017-11-30] MEDS ORDERED: SENNOSIDES/DOCUSATE SODIUM TAB PO PRN (12:32)
[2017-11-30] MEDS ORDERED: MAGNESIUM SULF 2 GM/WATER 50 ML IV ONE (12:53)
[2017-11-30] MEDS: METOLAZONE 5 MG TAB PO SCH (13:09)
[2017-11-30] MEDS: FUROSEMIDE 40 MG/4 ML VIAL IVP SCH ×2 (13:09→18:01)
--- NOTE | 2017-11-30 13:27 | GHP ---
DATE OF ADMISSION: 11/30/2017 Mr. Ely is an 82-year-old gentleman with a history of chronic kidney disease, diastolic failure, and mechanical heart valve, who presents to the hospital about a week after he was advised to do so by his administration intern. He had seen them in clinic and they checked some labs and saw a rising BUN and creatinine. The patient cites no specific reasons for waiting 5 days other than he had things to take care of at home. It sounds like his symptoms have not acutely worsened. He does notice lower extremity edema. He has not had fever, chills, or cough. He denies chest pain. He is not particularly short of breath. He does eat a low-salt diet. He notes that he does, in fact, have a low-salt diet and is compliant with medications. REVIEW OF SYSTEMS: Conducted and negative except as noted in the HPI. PAST MEDICAL HISTORY: 1. Episode of C diff in April of this year. 2. Atrial fibrillation on chronic anticoagulation, bioprosthetic, mitral and tricuspid valves. 3. Diastolic congestive heart failure. Last EF was 58%. 4. Chronic kidney disease with baseline creatinine about 1.8 to 1.9. 5. Chronic back pain. 6. Gout. 7. Coronary artery disease with nonobstructive coronary artery disease by angiogram. 8. Abnormal PSA. 9. Chronic edema. 10. Hypertension. 11. History of hypothyroidism. 12. Hearing loss. FAMILY HISTORY: Notable for heart disease in his mother and his brother, prostate cancer in his father. SOCIAL HISTORY: He is , 5 stepchildren. He denies alcohol to me. He lives [place] [facility] [address] the [facility]. ALLERGIES: No known drug allergies. HOME MEDICATIONS: Iron, metolazone 5 Thursday and Thursday, torsemide 100 daily , gabapentin, levothyroxine 75, metoprolol succinate XR 25 at h.s., multivitamin , Percocet, pantoprazole, potassium, senna docusate, spironolactone, and warfarin. PHYSICAL EXAMINATION: VITALS: Presenting vitals, blood pressure 115/58, pulse 90, breathing 18 times a minute, 98% on room air. GENERAL: Thin, chronically ill appearing. HEENT: Sclerae anicteric. Oropharynx clear. Mucous membranes moist. NECK: Supple without lymphadenopathy. There is JVD to the angle of the jaw. HEART: S1, S2. There is a systolic murmur and systolic click. LUNGS : Show rhonchi and decreased breath sounds at the bases. ABDOMEN: Soft, nontender, nondistended. EXTREMITIES: Lower extremities show 4+ edema bilaterally with some excoriations. SKIN: Otherwise without rash. NEUROLOGIC : Nonfocal. LABS: White count 6, hematocrit 32, which is his baseline, platelets 184. INR 2.77. Sodium 138, potassium 3.9, chloride 95, bicarb 26, BUN 128, creatinine 1.7, glucose 115. Magnesium is low at 1.3. Iron is 61, with a TIBC of 318, iron saturation of 19, ferritin is 274. PTH is elevated at 107. Troponin 0.03. BNP is 3390, which is low for him. I have discussed the case with Dr. Papo Brewer as well as Dr. Shen Brandt. Chest x -ray interpreted by me shows bilateral pleural effusions, right greater than left, with consolidation, cardiomegaly. EKG interpreted by me shows atrial fibrillation at 86, with borderline left axis deviation, no ST or T-wave changes. There are frequent PVCs. ASSESSMENT/PLAN: An 82-year-old gentleman with diastolic heart failure, valvular replacements, and chronic kidney disease, presents with worsening heart failure, right greater than left. 1. Heart failure. He has a history of diastolic dysfunction and valvular disease, now with right heart failure. He has not had an echocardiogram in a while. Discussed with Cardiology about reviewing when his last outpatient echocardiogram was versus repeating here. For now, he certainly is volume overloaded and needs diuresis. Nephrology is taking the lead on writing for diuretics. Writing for metolazone 5 daily as well as Lasix 80 IV b.i.d. We will follow his response to that. 2. Acute on chronic kidney disease. The patient has chronic kidney disease with worsening BUN and creatinine. His BUN is markedly high. His hematocrit is baseline, do not suspect upper GI bleed, rather prerenal azotemia. Does not appear to be sedated or confused by this. He denies somnolence or confusion as an outpatient. We will follow these labs with diuresis. I suspect that he may be intravascularly volume overloaded as well given his elevated JVD. 3. Elevated PTH, likely secondary hyperparathyroidism. 4. Hypomagnesemia. Will replete. 5. History of Clostridium difficile. No diarrhea. 6. Atrial fibrillation, currently rate controlled. Takes a beta esteban. Continue his warfarin. His INR is therapeutic. 7. Code status. Full code. DISPOSITION: Inpatient status. /[id number]/MODL MTDD
[2017-11-30] MEDS ORDERED: ACETAMINOPHEN 325 MG TAB PO PRN (14:42)
[2017-11-30] MEDS ORDERED: ONDANSETRON DISINTEGRATING 4 MG TAB PO PRN (14:42)
[2017-11-30] MEDS ORDERED: ONDANSETRON 4 MG/2 ML VIAL IVP PRN (14:42)
--- NOTE | 2017-11-30 14:50 | PDMN ---
Medical Necessity Medical necessity: Pt meets inpt criteria per MD order and MCG M-190, Heart Failure. 82 y/o w/hx diastolic heart failure, valve replacements, and chonic kidney disease admitted w/worsening R side heart faiure, acute on chronic kidney disease w/increasing BUN (128) and creatinine (1.7), hypomagnesemia (Mg 1.3), and hypotensive 94/58, BNP 3390. Diuresis w/IV Lasix, follow labs, nephrology consult, anticipate>2MN for management of above medical conditions.
[2017-11-30] MEDS: OXYCODONE/APAP 5/325 TAB PO PRN (17:29)
[2017-11-30] MEDS: POTASSIUM CL 20 MEQ TAB PO SCH ×2 (17:29→20:12)
--- NOTE | 2017-11-30 19:24 | GCON ---
CARDIOLOGY CONSULTATION DATE OF CONSULTATION: 11/30/2017 REASON FOR CONSULTATION: Right-sided congestive heart failure. HISTORY OF PRESENT ILLNESS: The patient is a pleasant 82-year-old gentleman with a known cardiac his tory of bioprosthetic mitral valve in the setting of rheumatic valvular disease, status post redo jayson rnotomy with tricuspid valve replacement in December 2015 in the setting of severe symptomatic tricus pid regurgitation. He also has known history of chronic renal insufficiency, mild nonobstructive cor onary artery disease, diastolic congestive heart failure, chronic atrial fibrillation, on long-term a nticoagulation with Coumadin, who presented to [facility] secondary to increasing jerrell ateral lower extremity edema and some dyspnea on exertion. He was last seen in our office by STEPHEN Jansen Ba, on November 25, 2017, with similar complaints. He was found to be significantly uremic wi th BUN of approximately 125. It was recommended that he decrease his metolazone back to 2 times a we ek instead of daily. It was also recommended that he present to the emergency department for admissi on for worsening right-sided congestive heart failure. He opted to present today for a hospitalizati on, stating he had many things he needed to do over the course of the weekend before he could be hosp italized. The patient states that over the last approximately 6 months, that he has developed increasing bilate ral lower extremity edema and increased weakness and muscle stiffness limiting his ability to ambulat e. I do note from previous office visits he has had increasing falls resulting in the need of a walk er. He presents today with generalized anasarca with dense edema to the waist. There is slight evidence of sacral edema. His medical course is complicated by worsening renal function. His creatinine today is 1.7, with a B UN of 128. Over the last several months, his creatinine has ranged anywhere from 1.7 to 2.2. Of note, he has been seen by Dr. Meier of Nephrology, who comments on the presence of cardiorenal syndrome. I shared Dr. Meier's concern regarding the presence of cardiorenal syndrome in a chroni donovan ill-appearing 82-year-old gentleman. Most recent echocardiogram to date is from March 2017 performed at [facility], demonstrating no rmal left ventricular size with normal left ventricular function, normally functioning bioprosthetic mitral and tricuspid valves, mean mitral valve gradient of 5 mmHg, moderate pulmonary hypertension wi th RV systolic pressure of 49 mmHg with mild tricuspid regurgitation. REVIEW OF SYSTEMS: Notable for increased fatigue, dyspnea on exertion, weight gain, lower extremity edema, muscle stiffness. He denies complaints of chest pain, chest pressure, palpitations, dizziness , lightheadedness, near syncope, or syncope. He has no complaints of PND or orthopnea. He denies co mplaints of fevers, chills, sweats, nausea, vomiting, or diaphoresis. No upper or lower GI bleeding. No bloody nose. He denies any abdominal pain. Denies any loss of appetite. Remainder of 10-point review of systems is negative. PAST MEDICAL HISTORY: Notable for: 1. Rheumatic mitral valve disease and severe tricuspid regurgitation, status post bioprosthetic mitr al and tricuspid valve replacement. 2. History of chronic atrial fibrillation. 3. Hypertension. 4. Chronic diastolic congestive heart failure. 5. Essential hypertension. 6. Chronic renal insufficiency. MEDICATIONS: Cardiac medications on admission include metolazone 5 mg Thursday and Thursday only, tor semide 100 mg daily, metoprolol succinate 25 mg daily, spironolactone 12.5 mg daily, and warfarin 5 m g tablet as directed per [facility]. He is also on ferrous sulfate, gabapentin, levothyroxine, Protonix, potassium chloride 20 mEq 2 packets in the morning, and Percocet 10/325 q.6 hours p.r.n. ALLERGIES: None. SOCIAL HISTORY: No history of alcohol or tobacco use. He is a . He lives alone. FAMILY HISTORY: Noncontributory. PHYSICAL EXAMINATION: GENERAL: He is a pleasant 82-year-old gentleman. He appears chronically ill. He is kyphotic. VITAL SIGNS: Blood pressure of 110/65, heart rate of 80, in atrial fibrillation, oxygen saturation 98% on room air, temperature 36.9. His weight is 65.3 kg. NECK: There is evidenc e of elevated JVP, sitting in the chair. No carotid bruits. RESPIRATORY: Decreased breath sounds a t bases bilaterally. Mild expiratory wheeze. CARDIAC: Irregularly irregular with a 1/6 systolic mu rmur at right upper sternal border. There is a second systolic murmur at the apex, 1/6. PMI is not displaced. ABDOMEN: Soft, nontender, and nondistended. EXTREMITIES: There is trace of sacral usha a. He has dense pitting edema to the waist bilaterally, with erythematous legs from the knees distal ly. LABORATORY DATA: White blood cell count 3.4, hemoglobin of 10.8, hematocrit 32, platelets 184. Sodi um of 138, potassium 3.9, chloride 95, bicarb 26, BUN 128, creatinine 1.7, magnesium 1.3. N-terminal proBNP 3390. DATA: Chest x-ray demonstrates bilateral pleural effusions, right greater than left, associated with consolidation. IMPRESSION: 1. Right-sided congestive heart failure. This is most likely multifactorial, including multiple alina vular disease, moderate pulmonary hypertension on most recent echocardiogram. Would recommend repeat echocardiogram at this time. 2. Chronic renal insufficiency with cardiorenal syndrome. Followed by Nephrology. Agree with incre ased dose of diuretics. Will discuss with Nephrology tomorrow regarding potential need for dialysis. 3. Chronic atrial fibrillation, rate controlled, on anticoagulation currently. PLAN: 1. Diuretics per Nephrology. 2. Complete 2-D echocardiogram tomorrow. 3. Continue rate control and anticoagulation for underlying atrial fibrillation. 4. We will continue to follow along with his care. /[id number]/MODL
[2017-11-30] MEDS: GABAPENTIN 300 MG CAP PO SCH (20:11)
[2017-11-30] MEDS: METOPROLOL SUCCINATE XR 25 MG TAB PO SCH (20:11)
[2017-11-30] MEDS: oxyCODONE IR 5 MG TAB PO PRN (20:12)
[2017-11-30] MEDS ORDERED: WARFARIN SODIUM 7.5 MG TAB PO SCH (21:00)
[2017-12-01] MEDS: oxyCODONE IR 5 MG TAB PO PRN ×2 (03:24→14:32)
[2017-12-01] MEDS: LEVOTHYROXINE 75 MCG TAB PO SCH (06:06)
[2017-12-01] MEDS ORDERED: PROTOCOL POTASSIUM 1 DOSE MISC PRN (06:26)
[2017-12-01 08:33] LABS: INR 2.92 (0.83-1.16); PROTIME(PATIENT) 30.4 SEC (12.0-15.0)
[2017-12-01] MEDS: FUROSEMIDE 40 MG/4 ML VIAL IVP SCH (08:51)
[2017-12-01] MEDS: PANTOPRAZOLE SODIUM 40 MG TAB PO SCH (08:51)
[2017-12-01] MEDS: POTASSIUM CL 20 MEQ TAB PO SCH ×3 (08:51→21:34)
[2017-12-01] MEDS: MULTIVITAMINS 1 EACH TAB PO SCH (08:51)
[2017-12-01] MEDS: METOLAZONE 5 MG TAB PO SCH (08:51)
[2017-12-01] MEDS: SPIRONOLACTONE 25 MG TAB PO SCH (08:51)
[2017-12-01] MEDS ORDERED: Herbals/Supplements -Info Only PO SCH (09:00)
[2017-12-01] MEDS ORDERED: POTASSIUM CL 10 MEQ TAB PO ONE ×2 (09:43→19:33)
--- NOTE | 2017-12-01 11:49 | HOSPPROG ---
Hospitalist Progress Note Assessment/Plan: LE edema / anasarca - in setting right heart failure - diuresed net neg 2.5 L overnight. Recent echo showed RVSP 49 with pulmonary hypertension. Discussed with cardiology. -repeat echo today -cont IV Lasix plus metolazone per renal -follow I&O's, daily weights CKD - Presents with prerenal azotemia, suspect cardiorenal syndrome. Baseline Cr 1.8, Cr here 1.7 --> 1.5 with diuresis Anemia of CKD - no indication for epo at this time, follow A fib - rate controlled, anticoagulated with INR 2.7 Hyperparathyroidism - suspect 2/2 bone mineral disease in setting of CKD FEN - replace mag and K per protocol Full code Dispo - cont inpt, ADD uncertain Subjective: Pt feels better, notes decreased LE edema. Denies CP or SOB. Appetite is good. He wants a banana is complaining about renal diet, which is lifted. Objective: Vital Signs Temp Pulse Resp BP Pulse Ox 36.4 C 86 18 117/67 97 12/01/17 11:19 12/01/17 11:19 12/01/17 11:19 12/01/17 11:19 12/01/17 11:19 Laboratory Results 12/01/17 03:10 11/30/17 12/01/17 12/02/17 05:59 05:59 05:59 Intake Total 1090 Output Total 3800 900 Balance -2710 -900 PT 30.4 SEC (12.0-15.0) H 12/01/17 07:55 INR 2.92 (0.83-1.16) H 12/01/17 07:55 - Physical Exam Constitutional: no apparent distress Eyes: PERRL Ears, Nose, Mouth, Throat: moist mucous membranes Cardiovascular: regular rate and rhythym Respiratory: no respiratory distress Gastrointestinal: normoactive bowel sounds, soft, non-tender abdomen Skin: warm Musculoskeletal: full muscle strength, other (2+ b/l LE pitting edema) Neurologic: AAOx3 Psychiatric: interacting appropriately ICD10 Worksheet Patient Problems: Problems Problem Status Onset Acute kidney injury Acute Peripheral edema Acute Acute blood loss anemia Acute Atrial fibrillation Acute CHF exacerbation Acute Coagulopathy Acute Dehydration Acute Diarrhea Acute Elevated troponin Acute Leukocytosis Acute S/P TVR (tricuspid valve replacement) Acute 12/25/15 Permanent atrial fibrillation Chronic Severe tricuspid regurgitation Chronic
--- NOTE | 2017-12-01 13:00 | ECHO ---
[email or web address] [address] Main: [phone] Fax: Transthoracic Echocardiogram Name: VIKTORIYA ARIAS MR#: [id number] Study Date: 12/01/2017 Study Time: 08:12 AM Date of : 1935 Age: 82 year(s) Height: 172.7 cm (68 in.) Weight: 68.49 kg (151 lb.) BSA: 1.81 m2 Gender: Male Examination: Echo Indication: Heart failure Image Quality: Fair Contrast: Requested by: Papo Brewer BP: 105 mmHg/65 mmHg Heart Rate: Rhythm: Indication: Heart failure Procedure Staff Director Of Partner Marketing: Noris Govea [facility] Reading Physician: Carlos Arita MD Requesting Provider: Conclusions: Borderline concentric LV hypertrophy. Normal global systolic LV function. EF is 66 %. A bioprothetic mitral valve is in place. The prosthetic mitral valve exhibits slightly thickened cusps. Mild MV prosthesis regurgitation. MV mean PG is 5mmHG.. Trivial aortic valve regurgitation. There is a tricuspid bioprosthesis. Mild tricuspid valve regurgitation. TV mean PG is 5mmHG.. Mild to moderate pulmonic valve regurgitation. Aortic root is borderline dilated.. Measurements: Chambers Valvular Assessment AV/MV Valvular Assessment TV/PV Normal Normal Normal Name Value Range Name Value Range Name Value Range Ao Lily (2D): 4.1 cm (1.4 cm-2.6 AV Vmax: 1.43 m/s (1 m/s-1.7 TV Vmax: 1.69 m/s (0.3 m/s-0.7 cm) m/s) m/s) IVSd (2D): 0.9 cm (0.6 cm-1.1 AV meanP mmHg ( - ) TV Vmean: 1.01 m/s ( - ) cm) MV meanP mmHg ( - ) TV PGmax: 11 mmHg ( - ) LVDd (2D): 4.0 cm (4.2 cm-5.9 MV PHT: 0.052 s ( - ) TV PGmean: 5 mmHg ( - ) cm) MVA (PHT): 4.2 s ( - ) TV VTI: 43.30 cm ( - ) LVDs (2D): 2.8 cm (2.1 cm-4 TR Vmax: 2.88 mm/s ( - ) cm) TR PGmax: 33 mmHg ( - ) LVPWd (2D): 0.9 cm (0.6 cm-1 cm) syst. PAP: 43 mmHg ( - ) LVEF (MOD4): 66 % (>=55 %) Continued Measurements: Chambers Valvular Assessment AV/MV Valvular Assessment TV/PV Patient: VIKTORIYA ARIAS Study Date: 12/01/2017 Page 1 of 2 08:12 AM Name Value Name Value Name Value LADs: 6.1 cm MV VTI: 45.40 cm CVP (est.): 10 mmHg LADs Lon.0 cm LA Area: 33.2 cm2 LA Volume: 69 ml LA Volume Index: 38.1 ml/m2 Findings: Left Ventricle: Normal size left ventricle. Borderline concentric LV hypertrophy. Normal global systolic LV function. EF is 66 %. No regional wall motion abnormality. RVSP is 43mmHG.. Right Ventricle: Upper normal size right ventricle. Left Atrium: The left atrium is severely dilated. Right Atrium: The right atrium is severely dilated. Mitral Valve: A bioprothetic mitral valve is in place. The prosthetic mitral valve exhibits slightly thickened cusps. Mild MV prosthesis regurgitation. MV mean PG is 5mmHG.. Aortic Valve: The aortic valve is tri-leaflet. There is mild thickening of the aortic cusps. Trivial aortic valve regurgitation. Tricuspid Valve: There is a tricuspid bioprosthesis. Mild tricuspid valve regurgitation. TV mean PG is 5mmHG.. Pulmonic Valve: The pulmonic valve is normal in appearance and function. Mild to moderate pulmonic valve regurgitation. Aorta: Aortic root is borderline dilated.. The aorta is normal. Pericardium: No pericardial effusion. Exam Comments: Previous echo 03/27/17. (No Signature Object) Patient: VIKTORIYA ARIAS Study Date: 12/01/2017 Page 2 of 2 08:12 AM [id number]
--- NOTE | 2017-12-01 13:45 | ASMTCMCOM ---
CM Note CM Note Notes: Pt admitted for uremia on top of CHR, with CKD and A Fib admitted for diuresis. Pt has had several recent admissions and had a past experience in a SNF which he didn't like and said, "It did nothing for me." He lives with step daughter Lili who he says is able to help care for him, though she is not there 15/09. Pt believes he is able to take care of himself and could "even live alone." At this time he is declining SNF or Home care, though PT had recommended home care at the least. OT was ordered today for eval. CM to follow. D/C Plan: TBD; pt declining services Date Signed: 12/01/2017 01:44 PM Electronically Signed By:Rose Marie Raman
--- NOTE | 2017-12-01 14:18 | SOAPPROG ---
SOAP Progress Note Assessment/Plan: Assessment: JOHN better today, creat decreased from 1.7 down to 1.5 volume overload, diuresing nicely hypokalemia, supplementing edema, diuresing Echo reviewed Plan: continue diuresis liberalize his diet a bit supplement K as necessary follow lytes volume and renal function 12/01/17 14:12 Subjective: up to chair, enjoying his [place] [employer] SOB better, no cp or SOB today spirits good, sleeping OK no cough or sputum wants some ice cream Objective: Vital Signs Temp Pulse Resp BP Pulse Ox 36.4 C 86 18 117/67 97 12/01/17 11:19 12/01/17 11:19 12/01/17 11:19 12/01/17 11:19 12/01/17 11:19 Laboratory Results 12/01/17 03:10 11/30/17 12/01/17 12/02/17 05:59 05:59 05:59 Intake Total 1090 Output Total 3800 1725 Balance -2710 -1725 PT 30.4 SEC (12.0-15.0) H 12/01/17 07:55 INR 2.92 (0.83-1.16) H 12/01/17 07:55 Physical Exam - Physical Exam General Appearance: alert, no apparent distress, thin Neck: other (+ JVD) Respiratory: rales, No rhonchi, No wheezing Cardiac/Chest: regular rate, rhythm, edema, gallop, systolic murmur, No friction rub Abdomen: normal bowel sounds, non-tender, soft Lymphatic: no adenopathy Extremities: swelling Neuro/Psych: alert, normal mood/affect, oriented x 3 ICD10 Worksheet Patient Problems: Problems Problem Status Onset Acute kidney injury Acute Peripheral edema Acute Acute blood loss anemia Acute Atrial fibrillation Acute CHF exacerbation Acute Coagulopathy Acute Dehydration Acute Diarrhea Acute Elevated troponin Acute Leukocytosis Acute S/P TVR (tricuspid valve replacement) Acute 12/25/15 Permanent atrial fibrillation Chronic Severe tricuspid regurgitation Chronic
--- NOTE | 2017-12-01 14:33 | PDCARPN ---
Cardiology Progress Note Assessment/Plan: Assessment: 1. Right sided CHF 2. Anasarca 3. Chronic Afib 4. sp bioprostetic Mitral and Tricuspid valve (normal function on today's) 5. Chronic renal insufficiency 6. CardioRenal syndrome Plan: -Continue current diuresis -Follow electrolytes -Will follow 12/01/17 14:33 Subjective: Mr. Ely is feeling better today. He has diuresed 2.7 L in the last 24 hours. Cr has improved to 1.5 (1.7 yesterday). He remains in rate controlled afib. Lower extremity edema has significantly improved. He denies any complaints of sob, hernandez, pnd, orthopnea, dizziness or syncope. vitals stable. Echo today demonstrates normal LVEF. Normal bioprosthetic valve function. NO change from echo in mar 2017 Reviewed/Discussed With: hospitalist Objective: Vital Signs (8 Hrs) Temp Pulse Resp BP Pulse Ox 12/01/17 11:19 36.4 C 86 18 117/67 97 12/01/17 07:52 36.6 C 89 18 105/65 95 Intake/Output (24 Hrs) 11/30/17 12/01/17 12/02/17 05:59 05:59 05:59 Intake Total 1090 Output Total 3800 1725 Balance -2710 -1725 Intake: Oral (ml) 1000 IV Intake (ml) 40 IV Infused (ml) 50 Magnesium Sulf 2 gm/Water 50 50 ml @ 50 mls/hr IV ONCE ONE Rx#:[id number] Output: Urine (ml) 3800 1725 Bedside Commode 875 Toilet 300 600 Urinal 2625 1125 Other: Weight 65.374 kg Intake Quantity Yes Sufficient Number of Voids Urinal 1 2 Bladder Scan Volume (ml) Urinal 321 Result Diagrams: 11/30/17 09:22 12/01/17 03:10 - Physical Exam Constitutional: other (appears chronically ill ) Cardiovascular: no rubs, irregularly irregular, jugular vein distention, other ( 2 + pitting edema to mid thigh bilaterally ) Peripheral Pulses: 2+: carotid (R), carotid (L) Respiratory: clear to auscultate bilat Neurologic: AAOx3, CN II-XII grossly intact Psychiatric: cooperative, interactive, following commands ICD10 Worksheet Patient Problems: Problems Problem Status Onset Acute kidney injury Acute Peripheral edema Acute Acute blood loss anemia Acute Atrial fibrillation Acute CHF exacerbation Acute Coagulopathy Acute Dehydration Acute Diarrhea Acute Elevated troponin Acute Leukocytosis Acute S/P TVR (tricuspid valve replacement) Acute 12/25/15 Permanent atrial fibrillation Chronic Severe tricuspid regurgitation Chronic
[2017-12-01] MEDS: FUROSEMIDE 100 MG/10 ML VIAL IVP SCH (15:53)
[2017-12-01] MEDS: OXYCODONE/APAP 5/325 TAB PO PRN (19:59)
[2017-12-01] MEDS ORDERED: WARFARIN SODIUM 5 MG TAB PO SCH (21:00)
[2017-12-01] MEDS: METOPROLOL SUCCINATE XR 25 MG TAB PO SCH (21:34)
[2017-12-01] MEDS: GABAPENTIN 300 MG CAP PO SCH (21:34)
[2017-12-02 04:20] LABS: INR 3.08 (0.83-1.16); PROTIME(PATIENT) 31.6 SEC (12.0-15.0)
[2017-12-02] MEDS: LEVOTHYROXINE 75 MCG TAB PO SCH (05:29)
[2017-12-02] MEDS ORDERED: POTASSIUM CL 10 MEQ TAB PO ONE (06:55)
[2017-12-02] MEDS: PANTOPRAZOLE SODIUM 40 MG TAB PO SCH (09:02)
[2017-12-02] MEDS: POTASSIUM CL 20 MEQ TAB PO SCH ×3 (09:02→21:24)
[2017-12-02] MEDS: METOLAZONE 5 MG TAB PO SCH (09:03)
[2017-12-02] MEDS: MULTIVITAMINS 1 EACH TAB PO SCH (09:03)
[2017-12-02] MEDS: SPIRONOLACTONE 25 MG TAB PO SCH (09:03)
[2017-12-02] MEDS: OXYCODONE/APAP 5/325 TAB PO PRN (09:04)
[2017-12-02] MEDS: FUROSEMIDE 100 MG/10 ML VIAL IVP SCH ×2 (09:04→15:38)
--- NOTE | 2017-12-02 09:10 | SOAPPROG ---
SOAP Progress Note Assessment/Plan: Assessment: JOHN better today, creat decreased from 1.5 down to 1.3 volume overload, diuresing nicely hypokalemia, supplementing edema better today, diuresing Echo reviewed, EF 66%, PAP 43, bioprosthetic valves seem to be functioning well doing a mathematics "crossword puzzle" Plan: continue diuresis liberalize his diet a bit supplement K as necessary follow lytes volume and renal function encouraged up and around with help 12/01/17 14:12 12/02/17 09:06 Subjective: up to chair breathing continues to improve, likes his new diet better than the renal diet slept OK walked in the halls earlier today no cp nausea or vomiting thinks his edema seems better, I agree enjoyed his breakfast mustapha Objective: Vital Signs Temp Pulse Resp BP Pulse Ox 36.5 C 87 13 96/59 L 96 12/02/17 07:44 12/02/17 07:44 12/02/17 07:44 12/02/17 07:44 12/02/17 07:44 Laboratory Results 12/02/17 03:06 12/01/17 12/02/17 12/03/17 05:59 05:59 05:59 Intake Total 1090 1150 Output Total 3800 3300 275 Balance -2710 -2150 -275 PT 31.6 SEC (12.0-15.0) H 12/02/17 03:06 INR 3.08 (0.83-1.16) H 12/02/17 03:06 Physical Exam - Physical Exam General Appearance: alert, thin Neck: other (+JVD) Respiratory: rales, wheezing Cardiac/Chest: edema, systolic murmur, irregularly irregular, other (edema seems a bit better today, still have a way to go) Abdomen: normal bowel sounds, non-tender, soft Skin: other (changes of venous and arterial disease) Neuro/Psych: alert, normal mood/affect, oriented x 3 ICD10 Worksheet Patient Problems: Problems Problem Status Onset Acute kidney injury Acute Peripheral edema Acute Acute blood loss anemia Acute Atrial fibrillation Acute CHF exacerbation Acute Coagulopathy Acute Dehydration Acute Diarrhea Acute Elevated troponin Acute Leukocytosis Acute S/P TVR (tricuspid valve replacement) Acute 12/25/15 Permanent atrial fibrillation Chronic Severe tricuspid regurgitation Chronic
--- NOTE | 2017-12-02 10:00 | HOSPPROG ---
Hospitalist Progress Note Assessment/Plan: LE edema / anasarca - in setting right heart failure - diuresed net neg 5 L since admission. Recent echo showed RVSP 49 with pulmonary hypertension. Rpt echo here with nl EF, mod pulm regurg. Discussed with cardiology. -cont IV Lasix plus metolazone per renal -follow I&O's, daily weights CKD - Presents with prerenal azotemia, suspect cardiorenal syndrome. Baseline Cr 1.8, Cr here 1.7 --> 1.3 with diuresis Anemia of CKD - no indication for epo at this time, follow A fib - rate controlled, anticoagulated with INR 3 Hyperparathyroidism - suspect 2/2 bone mineral disease in setting of CKD FEN - replace mag and K per protocol Full code Dispo - cont inpt, ADD uncertain. Pt not candidate for [facility] as he lives in [place]. He is declining SNF. Cont PT/OT Subjective: Pt feels better each day. Swelling improving. Denies CP or SOB. Objective: Vital Signs Temp Pulse Resp BP Pulse Ox 36.5 C 87 13 96/59 L 96 12/02/17 07:44 12/02/17 07:44 12/02/17 07:44 12/02/17 07:44 12/02/17 07:44 Laboratory Results 12/02/17 03:06 12/01/17 12/02/17 12/03/17 05:59 05:59 05:59 Intake Total 1090 1150 Output Total 3800 3300 275 Balance -2710 -2150 -275 PT 31.6 SEC (12.0-15.0) H 12/02/17 03:06 INR 3.08 (0.83-1.16) H 12/02/17 03:06 - Physical Exam Constitutional: no apparent distress Eyes: PERRL Ears, Nose, Mouth, Throat: moist mucous membranes Cardiovascular: regular rate and rhythym Respiratory: no respiratory distress, clear to auscultation Gastrointestinal: normoactive bowel sounds, soft, non-tender abdomen Skin: warm Musculoskeletal: full muscle strength, other (2+ b/l LE edema which is improved from admission) Neurologic: AAOx3 Psychiatric: interacting appropriately ICD10 Worksheet Patient Problems: Problems Problem Status Onset Acute kidney injury Acute Peripheral edema Acute Acute blood loss anemia Acute Atrial fibrillation Acute CHF exacerbation Acute Coagulopathy Acute Dehydration Acute Diarrhea Acute Elevated troponin Acute Leukocytosis Acute S/P TVR (tricuspid valve replacement) Acute 12/25/15 Permanent atrial fibrillation Chronic Severe tricuspid regurgitation Chronic
[2017-12-02] MEDS ORDERED: PNEUMOC 13-VAL CONJ-DIP CRM/PF 0.5 ML SYR IM ONE (11:05)
[2017-12-02] MEDS ORDERED: PROTOCOL MAGNESIUM 1 DOSE IV PRN (11:42)
--- NOTE | 2017-12-02 11:51 | PDCARPN ---
Cardiology Progress Note Assessment/Plan: Assessment: 1. Right sided CHF 2. Anasarca 3. Chronic Afib 4. sp bioprostetic Mitral and Tricuspid valve (normal function on today's) 5. Chronic renal insufficiency 6. CardioRenal syndrome Plan: -Continue current diuresis -Follow electrolytes -Check Magnesium now (results pending) -Will follow 12/01/17 14:33 12/02/17 11:50 Subjective: MR. Ely has diuresed 2.1 L yesterday, 2.7 the day before. Weight is down to 64.1 kg. Edema continues to improve but continues to have significant edema. BuN and Cr continue to improve, Cr 1.3. Reviewed/Discussed With: hospitalist, multidisciplinary team Objective: Vital Signs (8 Hrs) Temp Pulse Resp BP Pulse Ox 12/02/17 11:17 36.8 C 75 14 87/68 L 95 12/02/17 07:44 36.5 C 87 13 96/59 L 96 12/02/17 03:55 36.4 C 82 19 100/57 L 95 Intake/Output (24 Hrs) 12/01/17 12/02/17 12/03/17 05:59 05:59 05:59 Intake Total 1090 1150 Output Total 3800 3300 275 Balance -2710 -2150 -275 Intake: Oral (ml) 1000 1150 IV Intake (ml) 40 0 IV Infused (ml) 50 Magnesium Sulf 2 gm/Water 50 50 ml @ 50 mls/hr IV ONCE ONE Rx#:[id number] Output: Urine (ml) 3800 3300 275 Bedside Commode 875 Toilet 300 800 Urinal 2625 2500 275 Other: Weight 65.374 kg 64.1 kg Intake Quantity Yes Sufficient Number of Voids Toilet 1 Urinal 1 1 1 Bladder Scan Volume (ml) Urinal 321 Result Diagrams: 11/30/17 09:22 12/02/17 03:06 ICD10 Worksheet Patient Problems: Problems Problem Status Onset Acute kidney injury Acute Peripheral edema Acute Acute blood loss anemia Acute Atrial fibrillation Acute CHF exacerbation Acute Coagulopathy Acute Dehydration Acute Diarrhea Acute Elevated troponin Acute Leukocytosis Acute S/P TVR (tricuspid valve replacement) Acute 12/25/15 Permanent atrial fibrillation Chronic Severe tricuspid regurgitation Chronic
[2017-12-02] MEDS ORDERED: MAGNESIUM SULF 2 GM/WATER 50 ML IV ONE (12:08)
[2017-12-02] MEDS ORDERED: WARFARIN SODIUM 2.5 MG TAB PO ONE (21:00)
[2017-12-02] MEDS: GABAPENTIN 300 MG CAP PO SCH (21:24)
[2017-12-02] MEDS: METOPROLOL SUCCINATE XR 25 MG TAB PO SCH (21:24)
[2017-12-03] MEDS: OXYCODONE/APAP 5/325 TAB PO PRN ×3 (00:47→22:02)
[2017-12-03 04:09] LABS: INR 3.1 (0.83-1.16); PROTIME(PATIENT) 31.8 SEC (12.0-15.0)
[2017-12-03] MEDS: LEVOTHYROXINE 75 MCG TAB PO SCH (06:23)
[2017-12-03] MEDS ORDERED: MAGNESIUM SULF 1 GM/DEXTROSE 100 ML IV ONE (07:10)
[2017-12-03] MEDS: MULTIVITAMINS 1 EACH TAB PO SCH (09:15)
[2017-12-03] MEDS: FUROSEMIDE 100 MG/10 ML VIAL IVP SCH ×2 (09:15→14:58)
[2017-12-03] MEDS: SPIRONOLACTONE 25 MG TAB PO SCH (09:15)
[2017-12-03] MEDS: POTASSIUM CL 20 MEQ TAB PO SCH ×3 (09:15→22:02)
[2017-12-03] MEDS: PANTOPRAZOLE SODIUM 40 MG TAB PO SCH (09:15)
[2017-12-03] MEDS: METOLAZONE 5 MG TAB PO SCH (09:15)
--- NOTE | 2017-12-03 09:35 | PDCARPN ---
Cardiology Progress Note Assessment/Plan: Assessment: 1. Right sided CHF 2. Anasarca 3. Chronic Afib 4. sp bioprostetic Mitral and Tricuspid valve (normal function on today's) 5. Chronic renal insufficiency 6. CardioRenal syndrome Plan: -Continue current diuresis -Follow electrolytes -Check Magnesium now (results pending) -Will follow 12/01/17 14:33 12/02/17 11:50 Subjective: Mr. Ely continues to do well. He is neg 7.5 L since admit, weight is down 2Kg. Renal function continues to improve. Cr 1.2 today. Edema much better but far from resolved. Reviewed/Discussed With: multidisciplinary team Objective: Vital Signs (8 Hrs) Temp Pulse Resp BP Pulse Ox 12/03/17 07:55 36.7 C 82 16 100/57 L 96 12/03/17 07:40 82 L 12/03/17 03:33 36.4 C 85 14 88/57 L 92 Intake/Output (24 Hrs) 12/02/17 12/03/17 12/04/17 05:59 05:59 05:59 Intake Total 1150 500 Output Total 3300 3295 Balance -2150 -2795 Intake: Oral (ml) 1150 400 IV Intake (ml) 0 IV Infused (ml) 100 Magnesium Sulf 2 gm/Water 100 50 ml @ 50 mls/hr IV ONCE ONE Rx#:[id number] Output: Urine (ml) 3300 3295 Toilet 800 Urinal 2500 3295 Other: Weight 64.1 kg 63.73 kg Number of Voids Toilet 1 Urinal 1 1 Number of Stools Urinal 1 Result Diagrams: 11/30/17 09:22 12/03/17 03:06 - Physical Exam Cardiovascular: regular rate and rhythm, no murmurs, no rubs, no gallops Respiratory: clear to auscultate bilat Skin: no rashes Musculoskeletal: no muscular tenderness Neurologic: AAOx3, CN II-XII grossly intact Psychiatric: cooperative, interactive ICD10 Worksheet Patient Problems: Problems Problem Status Onset Acute kidney injury Acute Peripheral edema Acute Acute blood loss anemia Acute Atrial fibrillation Acute CHF exacerbation Acute Coagulopathy Acute Dehydration Acute Diarrhea Acute Elevated troponin Acute Leukocytosis Acute S/P TVR (tricuspid valve replacement) Acute 12/25/15 Permanent atrial fibrillation Chronic Severe tricuspid regurgitation Chronic
--- NOTE | 2017-12-03 10:11 | SOAPPROG ---
SOAP Progress Note Assessment/Plan: Assessment/Plan: JOHN on CKD 2: likely cardiorenal, Cr continues to improve with diuresis, down to 1.2 today. - Continue diuresis. - Will continue to monitor. - Avoid hypotension and nephrotoxins. Hypervolemia: improving with diuretics, being managed by cardiology on IV Lasix , metolazone and spironolactone. Hypokalemia: K 4.0 with replacement in setting of diuretics, being monitored BID. Metabolic alkalosis: in setting of diuresis, will continue to monitor for now. Subjective: No acute events overnight. Pt continues to have good UOP. He denies any pain or dyspnea, swelling improving. Objective: Vital Signs Temp Pulse Resp BP Pulse Ox 36.7 C 82 16 100/57 L 96 12/03/17 07:55 12/03/17 07:55 12/03/17 07:55 12/03/17 07:55 12/03/17 07:55 Laboratory Results 12/03/17 03:06 12/02/17 12/03/17 12/04/17 05:59 05:59 05:59 Intake Total 1150 500 Output Total 3300 3295 450 Balance -2150 -2795 -450 PT 31.8 SEC (12.0-15.0) H 12/03/17 03:06 INR 3.10 (0.83-1.16) H 12/03/17 03:06 General: alert and oriented, no acute distress Eyes: EOMI, PERRL OP: Clear CV: RRR Resp: nonlabored respirations Abd: Soft, NT/ND Ext: +2 edema BLE Neuro: CN II-XII grossly intact, no asterixis Psych: cooperative ICD10 Worksheet Patient Problems: Problems Problem Status Onset Acute kidney injury Acute Peripheral edema Acute Acute blood loss anemia Acute Atrial fibrillation Acute CHF exacerbation Acute Coagulopathy Acute Dehydration Acute Diarrhea Acute Elevated troponin Acute Leukocytosis Acute S/P TVR (tricuspid valve replacement) Acute 12/25/15 Permanent atrial fibrillation Chronic Severe tricuspid regurgitation Chronic
--- NOTE | 2017-12-03 11:34 | HOSPPROG ---
Hospitalist Progress Note Assessment/Plan: LE edema / anasarca 2/2 right heart failure - diuresed net neg 8 L since admission. Wt down 2 kg. Recent echo showed RVSP 49 with pulmonary hypertension. Rpt echo here with nl EF, mod pulm regurg. Discussed with cardiology. -cont IV Lasix plus metolazone per renal -follow I&O's, daily weights CKD - Presents with prerenal azotemia, suspect cardiorenal syndrome. Baseline Cr 1.8, Cr here 1.7 --> 1.2 with diuresis Anemia of CKD - no indication for epo at this time, follow A fib - rate controlled, anticoagulated with INR 3 Hyperparathyroidism - suspect 2/2 bone mineral disease in setting of CKD FEN - replace mag and K per protocol Full code Dispo - cont inpt, ADD ~2 days. Pt not candidate for [facility] as he lives in [place]. He is declining SNF. Cont PT/OT Subjective: Pt feels well. Ambulated in halls this am with walker, mobility improving. LE edema improving. He denies CP, SOB or orthopnea. Wants ice cream Objective: Vital Signs Temp Pulse Resp BP Pulse Ox 36.7 C 82 16 100/57 L 96 12/03/17 07:55 12/03/17 07:55 12/03/17 07:55 12/03/17 07:55 12/03/17 07:55 Laboratory Results 12/03/17 03:06 12/02/17 12/03/17 12/04/17 05:59 05:59 05:59 Intake Total 1150 500 500 Output Total 3300 3295 700 Balance -2150 -2795 -200 PT 31.8 SEC (12.0-15.0) H 12/03/17 03:06 INR 3.10 (0.83-1.16) H 12/03/17 03:06 - Physical Exam Constitutional: no apparent distress, chronically ill appearing Eyes: PERRL Ears, Nose, Mouth, Throat: moist mucous membranes Cardiovascular: regular rate and rhythym Respiratory: no respiratory distress, inspiratory crackles Gastrointestinal: normoactive bowel sounds, soft, non-tender abdomen Skin: warm Musculoskeletal: full muscle strength, other (severe kyphosis) Neurologic: AAOx3 Psychiatric: interacting appropriately ICD10 Worksheet Patient Problems: Problems Problem Status Onset Acute kidney injury Acute Peripheral edema Acute Acute blood loss anemia Acute Atrial fibrillation Acute CHF exacerbation Acute Coagulopathy Acute Dehydration Acute Diarrhea Acute Elevated troponin Acute Leukocytosis Acute S/P TVR (tricuspid valve replacement) Acute 12/25/15 Permanent atrial fibrillation Chronic Severe tricuspid regurgitation Chronic
[2017-12-03] MEDS ORDERED: POTASSIUM CL 10 MEQ TAB PO ONE (20:20)
[2017-12-03] MEDS: METOPROLOL SUCCINATE XR 25 MG TAB PO SCH (22:03)
[2017-12-03] MEDS: GABAPENTIN 300 MG CAP PO SCH (22:03)
[2017-12-04 04:51] LABS: INR 2.63 (0.83-1.16)
[2017-12-04] MEDS: LEVOTHYROXINE 75 MCG TAB PO SCH (05:27)
[2017-12-04] MEDS ORDERED: MAGNESIUM SULF 1 GM/DEXTROSE 100 ML IV ONE (08:00)
[2017-12-04] MEDS: SPIRONOLACTONE 25 MG TAB PO SCH (08:16)
[2017-12-04] MEDS: FUROSEMIDE 100 MG/10 ML VIAL IVP SCH (08:17)
[2017-12-04] MEDS: POTASSIUM CL 20 MEQ TAB PO SCH (08:17)
[2017-12-04] MEDS: PANTOPRAZOLE SODIUM 40 MG TAB PO SCH (08:17)
[2017-12-04] MEDS: METOLAZONE 5 MG TAB PO SCH (08:17)
[2017-12-04] MEDS: MULTIVITAMINS 1 EACH TAB PO SCH (08:17)
[2017-12-04] MEDS: OXYCODONE/APAP 5/325 TAB PO PRN (08:39)
--- NOTE | 2017-12-04 09:35 | SOAPPROG ---
SOAP Progress Note Assessment/Plan: Assessment/Plan: JOHN on CKD 2: likely cardiorenal, Cr continues to improve with diuresis, now stable at 1.2 close to baseline. - Continue diuresis per cardiology. - Avoid hypotension and nephrotoxins. - Continue to monitor. Hypervolemia: improving with diuretics, being managed by cardiology on IV Lasix , metolazone and spironolactone. Hypokalemia: K 4.1 with replacement in setting of diuretics, being monitored BID. Metabolic alkalosis: in setting of diuresis, stable, will continue to monitor for now. Thank you for the interesting consult. Nephrology will continue to follow labs peripherally, please call if you have any additional questions or concerns. Subjective: No acute events overnight. Pt states that he is feeling well, has some swelling in feet but improved. He wants to go home. Objective: Vital Signs Temp Pulse Resp BP Pulse Ox 36.3 C 87 18 116/67 96 12/04/17 07:54 12/04/17 07:54 12/04/17 07:54 12/04/17 07:54 12/04/17 07:54 Laboratory Results 12/04/17 03:06 12/03/17 12/04/17 12/05/17 05:59 05:59 05:59 Intake Total 500 2700 Output Total 3295 4150 500 Balance -2795 -1450 -500 PT 28.0 SEC (12.0-15.0) H 12/04/17 03:06 INR 2.63 (0.83-1.16) H 12/04/17 03:06 General: alert and oriented, no acute distress Eyes: EOMI, PERRL OP: Clear CV: RRR Resp: nonlabored respirations Abd: Soft, NT/ND Ext: +1 edema BLE neuro: CN II-XII grossly intact Psych: cooperative ICD10 Worksheet Patient Problems: Problems Problem Status Onset Acute kidney injury Acute Peripheral edema Acute Acute blood loss anemia Acute Atrial fibrillation Acute CHF exacerbation Acute Coagulopathy Acute Dehydration Acute Diarrhea Acute Elevated troponin Acute Leukocytosis Acute S/P TVR (tricuspid valve replacement) Acute 12/25/15 Permanent atrial fibrillation Chronic Severe tricuspid regurgitation Chronic
[2017-12-04 12:27] VITALS: BP 96/58
--- NOTE | 2017-12-04 12:50 | PDCARPN ---
Cardiology Progress Note Assessment/Plan: Assessment: 1. Right sided CHF 2. Anasarca 3. Chronic Afib 4. sp bioprostetic Mitral and Tricuspid valve (normal function on today's) 5. Chronic renal insufficiency 6. CardioRenal syndrome Plan: -Plan to discharge home today -Discharge home on Lasix 80 mg po bid -Discharge home on Metolazone 5 mg daily -Discharge home on Spironolactone 12.5 mg daily -Discharge home on Magnesium Oxide 400 mg bid -Continue out pateint dose of Metoprolol Succinate 25 mg once daily -Continue coumadin per coumadin clinic -Arrange for cardiology follow up in one week -Labwork on the day prior to office appointment: BMP, Mg and BNP Subjective: Mr. Ely is feeling well. He diuresed an additional 1.45 L yesterday. He is neg 9L this admission. His renal function has improved since admission, currently 1.2. He has required regular Mg infusion, Mg is within normal limits. He is anxious to go home today. Reviewed/Discussed With: hospitalist, multidisciplinary team Objective: Vital Signs (8 Hrs) Temp Pulse Resp BP Pulse Ox 12/04/17 12:00 36.3 C 83 16 96/58 L 96 12/04/17 07:54 36.3 C 87 18 116/67 96 Intake/Output (24 Hrs) 12/03/17 12/04/17 12/05/17 05:59 05:59 05:59 Intake Total 500 2700 Output Total 3295 4150 500 Balance -2795 -1450 -500 Intake: Oral (ml) 400 2700 IV Infused (ml) 100 Magnesium Sulf 2 gm/Water 100 50 ml @ 50 mls/hr IV ONCE ONE Rx#:[id number] Output: Urine (ml) 3295 4150 500 Toilet 2225 500 Urinal 3295 1925 Other: Weight 63.73 kg 63.004 kg Number of Voids Toilet 2 Urinal 1 1 Number of Stools Urinal 1 Result Diagrams: 11/30/17 09:22 12/04/17 03:06 - Physical Exam Ears, Nose, Mouth, Throat: moist mucous membranes Cardiovascular: irregularly irregular, other (1+ bilateral edema to mid calf ) Neurologic: AAOx3, CN II-XII grossly intact Psychiatric: cooperative, interactive ICD10 Worksheet Patient Problems: Problems Problem Status Onset CHF exacerbation Acute Severe tricuspid regurgitation Chronic S/P TVR (tricuspid valve replacement) Acute 12/25/15 Acute blood loss anemia Acute Coagulopathy Acute Permanent atrial fibrillation Chronic Atrial fibrillation Acute Dehydration Acute Leukocytosis Acute Diarrhea Acute Elevated troponin Acute Acute kidney injury Acute Peripheral edema Acute
--- NOTE | 2017-12-04 14:16 | ASMTCMCOM ---
CM Note CM Note Notes: Pts case discussed in morning rounds. Pt is being discharged today. Pt is continuing to refuse any services at this time. Pt will go back to living w/ his step daughter Lili. CM available for changes. Plan: Independent Date Signed: 12/04/2017 02:15 PM Electronically Signed By:KATIE Kinney
--- NOTE | 2017-12-04 14:17 | ASMTLACE ---
LACE Length of stay for Answers: 4-6 days current admission Acuity / Level of Answers: Yes Care: Did the patient have an inpatient admission? Comorbidities - select Answers: Congestive heart failure all that apply Coronary Artery Disease Opioid dependence / Chronic pain Other Notes: HTN; AFib # of Emergency department Answers: 1-2 visits in the last 6 months Score: 17 Date Signed: 12/04/2017 02:16 PM Electronically Signed By:KATIE Kinney
--- NOTE | 2017-12-04 16:46 | GDS ---
DISCHARGE DIAGNOSES: 1. Lower extremity edema and anasarca secondary to right heart failure. 2. Chronic kidney disease. 3. Anemia of chronic kidney disease. 4. Atrial fibrillation. 5. Chronic anticoagulation. 6. 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 7. Hypokalemia, resolved. 8. Hypomagnesemia, resolved. CONSULTANTS: 1. Verónica Meier MD, nephrology. 2. Papo Brewer MD, cardiology. HISTORY OF PRESENT ILLNESS: For details, please see history and physical dated November 30, 2017. In brief, the patient is an 82-year-old male with history of chronic kidney disease and diastolic heart failure who presented to the emergency department as directed by his kettle hand after outpatient la bs revealed a rising BUN and creatinine. He was found to have marked lower extremity edema and was a dmitted to the hospital for further management. HOSPITAL COURSE: The patient was admitted to the cardiac telemetry unit. His condition was consiste nt with a right heart failure etiology of his edema. Given his elevated BUN and creatinine, renal co nsult was obtained. He was started on aggressive diuretic therapy with Lasix 80 mg IV twice daily al sheree with metolazone. This affected a good diuresis, and he diuresed net negative nearly 10 L, and hi s weight is down 2 kg. His creatinine actually improved from 1.7 to 1.2 with diuresis. His BUN has also trended down from 128 to 99. He received electrolyte replacement. On the day of discharge, he is hemodynamically stable, saturating 96% on room air. DISPOSITION: Patient is discharged home in stable condition. He will have outpatient palliative car e services. He does not qualify for home health care given his [place] location. FOLLOWUP: 1. Dr. Josue Napoles [facility] on December 08 at 2:45 p.m. He is advised to arriv e 1-2 hours early to have labs drawn. He is given a prescription for basic metabolic panel, magnesiu m, and BNP. 2. Dr. Adiel Ray, primary care. DISCHARGE MEDICATIONS: Please see [facility] for completed outpatient medication list. New medications on discharge include 80 mg p.o. twice daily #60 no refills, magnesium oxide 400 mg p. o. twice daily #60 no refills, Zaroxolyn 5 mg p.o. daily #30 no refills, Tylenol 650 mg p.o. q.4 hour s p.r.n. He will continue all other outpatient medications as previously prescribed including Coumadin which w ill be followed by the [facility], spironolactone 12.5 mg p.o. daily, Protonix 40 mg p.o. daily, Toprol-XL 25 mg p.o. at bedtime, gabapentin 300 mg p.o. at bedtime, potassium chloride 40 mEq p.o. t hree times daily, iron sulfate 325 mg p.o. twice daily, Senokot, levothyroxine 75 mcg p.o. daily, Per cocet 1 tab p.o. q.6 hours p.r.n. pain. Discontinued medications: Torsemide is discontinued in favor of Lasix. Changed medications: Zaroxolyn dose is changed from 5 mg p.o. Thursday/Thursday to 5 mg p.o. daily. /[id number]/MODL
== END 2017-12-04 15:04 | disposition home or self-care (01) | DRG 292 ==
LOC: F2W 11:27
PROVIDERS: ADMIT Internal Medicine; ATTEND Internal Medicine
DX: I13.0 Hypertensive heart and chronic kidney disease with heart failure and stage 1 through stage 4 chronic kidney disease, or unspecified chronic kidney disease (principal); I50.811 Acute right heart failure; N25.81 Secondary hyperparathyroidism of renal origin; I50.30 Unspecified diastolic (congestive) heart failure; N18.2 Chronic kidney disease, stage 2 (mild); D63.1 Anemia in chronic kidney disease; I48.91 Unspecified atrial fibrillation; E87.6 Hypokalemia; E83.42 Hypomagnesemia; M85.80 Other specified disorders of bone density and structure, unspecified site; Z95.3 Presence of xenogenic heart valve; Z79.01 Long term (current) use of anticoagulants; Z23 Encounter for immunization
CPT/HCPCS: 84484-PO; 97112-GP; 97116-GP; 97161-GP; 97165-GO; 97530-GO; 97530-GP; 97535-GO; G0008; G0009; G8978-GP-CJ; G8979-GP-CI; G8987-GO-CI; G8988-GO-CI; J1940; J3475

== ENCOUNTER 2018-07-16 20:16 | Inpatient (IN) | payer OTHER ==
--- NOTE | 2018-07-16 20:19 | EDPHY ---
HPI/HX/ROS/PE/MDM Narrative: CHIEF COMPLAINT: Increased weakness, altered mental status, diarrhea HISTORY OF PRESENT ILLNESS: The patient is an anticoagulated (Coumadin) 82 y/ o male with a history of congestive heart failure, mitral and aortic valve replacements, chronic weakness, and midline hernia arriving via EMS for increased weakness, cough, diarrhea, and altered mental status. His family reports he has been weaker than normal today. He is disoriented to time and reported to EMS the year was 1958. His family reports he had a couple episodes of diarrhea earlier today. He reports some difficulty urinating and that his hernia has been getting worse. According to family, his is able to stand and pivot but uses an electric wheelchair for mobility. Family reports he was evaluated for similar symptoms last week and was cleared at that time for a UTI. No fever, chills, chest pain, shortness of breath, palpitations, vomiting, headache, lightheadedness. REVIEW OF SYSTEMS: A comprehensive 10 system review of systems is otherwise negative aside from elements mentioned in the history of present illness and medical decision making PAST MEDICAL HISTORY: Atrial fibrillation, atrial flutter, congestive heart failure, mitral and aortic valve replacements, chronic weakness, midline hernia SOCIAL HISTORY: Brother at bedside, lives in [place], uses electric wheelchair for mobility VITAL SIGNS: Reviewed by me. Heart rate 99 on the monitor irregular GENERAL: Elderly male, debilitated, very hard of hearing with a wet cough on occasion. HEENT: Atraumatic. Eyes: No icterus, no injection. Mouth: moist mucous membranes. No erythema or lesions. Neck: supple with no adenopathy. LUNGS: Clear to auscultation anteriorly. Diminished breath sounds right and left bases. CARDIAC: Irregularly irregular rate and rhythm. S3 gallop. Systolic murmur. No rubs. ABDOMEN: Soft, nontender, nondistended, bowel sounds normal. RECTAL: Brown/black stool on the glove. Not grossly melanotic but concerning for occult blood BACK: No CVA tenderness. EXTREMITIES: 3+ pitting edema to the knees bilaterally. No trauma. Diminished range of motion. NEURO: Alert, disoriented to year. Oriented to person and place. Grossly nonfocal. SKIN: Warm and dry, no rash. PSYCHIATRIC: Normal mentation, no agitation. ED Course: Study: X-ray of the chest Indication: Weakness, irregularly irregular rhythm Results: X-ray of the chest was obtained. The results of the study are: pneumonia The study was read by the radiologist, Dr. Mckenzie. I viewed the images myself on the PACS system. 12-LEAD EKG: Please see the full report in [facility]. My interpretation: Atrial fibrillation. The patient presents with increased weakness, altered mental status, cough, and diarrhea. According to family his hernia has been worse than normal and he has been more weak. He informed EMS the year was 1958. He had several episodes of diarrhea today. On exam, he has S3 gallop, irregularly irregular heart rhythm, and peripheral edema. Plan for CBC, basic metabolic, coagulation panel, BNP, troponin, urinalysis, EKG, and chest X-ray. 21:30 - Chest x-ray shows pneumonia and INR is 5. Plan for lactic acid, blood cultures, and respiratory pathogen analysis. Patient is noted to be anemic with an H&H of 9 in 28 with most recent H&H of 11 and 32. Stool is guaiac positive. INR is 5.15. Patient was started on the anti thrombotic reversal protocol and received vitamin K and Kcentra. Repeat INR was ordered and is pending at the time of this dictation. Patient's course discussed with Dr. Jabari Larson. Patient will be admitted to step-down for close monitoring of his weakness, diarrhea, supratherapeutic INR, guaiac-positive stools, pneumonia, congestive heart failure, peripheral edema. Critical care time spent by me, Dr. Molina exclusively with this patient was 35 minutes, exclusive of PA time and exclusive of procedures. The organ system at risk was pulmonary, cardiac, renal, and hematologic and I gave antibiotics, reversed an elevated INR, provided diuresis, and admitted the patient to step- down to prevent worsening of the patients condition. Critical care time included obtaining history, performing a physical exam, bedside monitoring of interventions, collecting and interpreting tests and discussion with consultants but not including time spent performing procedures. MDM: Differential diagnosis of the patient's weakness was considered including but not limited to electrolyte abnormality, anemia, cardiac ischemia, CVA, spinal cord abnormality, and infectious causes. - Data Points Imaging Results: Impression: Left lower lobe airspace consolidation and pleural effusion/thickening compatible with pneumonia. Less prominent consolidation right lower lobe. Cardiomegaly post open heart surgery.. Dictated By: Eduar Mckenzie MD Imaging: I viewed and interpreted images myself Laboratory Results: Laboratory Results 07/16/18 20:38 07/16/18 20:38 Medications Given: Ferrous Sulfate (Ferrous Sulfate) 325 mg PO BID NIKI Stop: 01/13/19 08:59 Last Admin: 07/17/18 21:27 Dose: 325 mg Gabapentin (Neurontin) 300 mg PO HS NIKI Stop: 01/13/19 20:59 Last Admin: 07/17/18 21:27 Dose: 300 mg Guaifenesin (Mucinex) 600 mg PO BID NIKI Stop: 01/13/19 08:59 Last Admin: 07/17/18 21:27 Dose: 600 mg Ceftriaxone Sodium/Dextrose (Rocephin 1 Gm (Premix)) 50 mls @ 100 mls/hr IV DAILY NIKI PRN Reason: Protocol Stop: 08/16/18 08:59 Last Admin: 07/17/18 09:05 Dose: 50 mls Levothyroxine Sodium (Synthroid) 100 mcg PO DAILY06 NIKI Stop: 01/14/19 05:59 Last Admin: 07/18/18 07:13 Dose: 100 mcg Morphine Sulfate (Ms Contin/Oramorph) 15 mg PO BID NIKI Stop: 07/27/18 08:59 Last Admin: 07/17/18 21:27 Dose: 15 mg Pantoprazole Sodium (Protonix) 40 mg IVP BID NIKI Stop: 01/13/19 08:59 Last Admin: 07/17/18 21:27 Dose: 40 mg Discontinued Medications Furosemide (Lasix Injection) 40 mg IVP EDNOW ONE Stop: 07/16/18 21:42 Last Admin: 07/16/18 22:38 Dose: 40 mg Ceftriaxone Sodium/Dextrose (Rocephin 1 Gm (Premix)) 50 mls @ 100 mls/hr IV EDNOW ONE PRN Reason: Protocol Stop: 07/16/18 21:59 Last Admin: 07/16/18 21:43 Dose: 50 mls Prothrombin Complex Concent (Human) (Kcentra) 1,500 unit in 60 mls @ 0 mls/hr IV ONCE ONE; Per Protocol PRN Reason: Protocol Stop: 07/16/18 21:52 Last Admin: 07/16/18 22:20 Dose: 60 mls Phytonadione 10 mg/ Sodium (Chloride) 51 mls @ 102 mls/hr IV ONCE ONE Stop: 07/16/18 22:20 Last Admin: 07/16/18 22:32 Dose: 51 mls Azithromycin 500 mg/ Sodium (Chloride) 255 mls @ 255 mls/hr IV EDNOW ONE PRN Reason: Protocol Stop: 07/16/18 23:51 Last Admin: 07/17/18 00:25 Dose: 255 mls Point of Care Test Results: Chemistry 07/16/18 20:43 POC Troponin I 0.01 ng/mL ng/mL (0.00-0.08) General Initial Vital Signs: Initial Vital Signs Temperature (C) 36.9 C 07/16/18 20:25 Heart Rate 99 07/16/18 20:25 Respiratory Rate 16 07/16/18 20:25 Blood Pressure 105/64 07/16/18 20:25 O2 Sat (%) 94 07/16/18 20:25 O2 Delivery Mode Room Air O2 (L/minute) 2 Allergies/Adverse Reactions: No Known Allergies Allergy (Verified 07/16/18 20:23) Home Medications: Medication Instructions Recorded Multivitamins [Multivitamin (*)] 1 each PO DAILY 10/02/15 Warfarin Sodium [Coumadin 5MG (*)] 5 mg PO SUTUWETHSA@10/25/15 Pantoprazole Sodium [Protonix 40mg 40 mg PO DAILY 12/21/15 (*)] Spironolactone [Aldactone 25 MG 12.5 mg PO DAILY 12/21/15 (*)] Warfarin Sodium [Coumadin 7.5MG 7.5 mg PO MOFR@21 12/21/15 (*)] Ferrous Sulfate [Ferrous Sulf 325 325 mg PO BID 05/04/17 MG (*)] Gabapentin [Neurontin 300 MG (*)] 300 mg PO HS 05/04/17 Potassium Cl [Klor-Con 20 meq (*)] 20 meq PO BID 05/04/17 Herbals/Supplements -Info Only 1 ea PO DAILY 11/30/17 Sennosides/Docusate Sodium 1 - 2 each PO DAILY PRN 11/30/17 [Senna-Docusate Sodium Tablet] Acetaminophen [Tylenol 325mg (*)] 650 mg PO Q4HRS PRN tab 12/04/17 Magnesium Oxide [Magnesium] 400 mg PO BID #60 tablet 12/04/17 Furosemide [Lasix 20 MG (*)] 60 mg PO DAILY@1400 07/16/18 Furosemide [Lasix 80 MG (*)] 80 mg PO DAILY@0600 07/16/18 Levothyroxine [Synthroid 100 mcg 100 mcg PO DAILY06 07/16/18 (*)] Metolazone [Zaroxolyn 5MG (*)] 5 mg PO MOFR 07/16/18 Potassium Cl [Klor-Con 20 meq (*)] 20 meq PO MOFR 07/16/18 guaiFENesin [Mucinex 600 MG (*)] 600 mg PO BID 07/16/18 morphINE SR [Ms Contin/Oramorph 15 15 mg PO BID 07/16/18 mg (*)] oxyCODONE HCL/ACETAMINOPHEN 1 each PO Q6HRS PRN 07/16/18 [Oxycodone-Acetaminophen 10-325] Departure - Departure Disposition: [facility] Inpatient Acute Clinical Impression: Coagulation disorder due to circulating anticoagulants Pneumonia Qualifiers: Pneumonia type: due to unspecified organism Laterality: right Lung location: lower lobe of lung Qualified Code(s): J18.1 - Lobar pneumonia, unspecified organism GI bleed Qualifiers: GI bleed type/associated pathology: unspecified gastrointestinal hemorrhage type Qualified Code(s): K92.2 - Gastrointestinal hemorrhage, unspecified Anemia Qualifiers: Anemia type: other cause Other causes of anemia: other cause, not classified Qualified Code(s): D64.89 - Other specified anemias Condition: Fair Report Scribed for: Kaylyn Molina Report Scribed by: Valorie Plaza Date of Report: 07/16/18 Time of Report: 21:00 Physician Review and Approval Statement: Portions of this note were transcribed by a biomedical engineering technician. I personally performed a history, physical exam, medical decision making, and confirmed accuracy of information the transcribed note.
[2018-07-16 20:49] LABS: PLATELET COUNT 166 10^3/uL (150-400)
[2018-07-16 21:08] LABS: INR 5.15 (0.83-1.16); PROTIME(PATIENT) 44.7 SEC (12.0-15.0)
[2018-07-16] MEDS ORDERED: FUROSEMIDE 40 MG/4 ML VIAL IVP ONE (21:41)
[2018-07-16] MEDS ORDERED: PHYTONADIONE 10 MG in NS 50 ML IV ONE (21:51)
[2018-07-16] MEDS ORDERED: HUMAN PROTHROMBIN COMPLX(PCC) 1,500 UNIT/60 ML VIAL IV ONE (21:51)
[2018-07-16] MEDS ORDERED: HUMAN PROTHROMBIN COMPLX(PCC) 500 UNIT/20 ML VIAL IV ONE (21:51)
[2018-07-16] MEDS ORDERED: ONDANSETRON DISINTEGRATING 4 MG TAB PO PRN (22:23)
[2018-07-16] MEDS ORDERED: ONDANSETRON 4 MG/2 ML VIAL IVP PRN (22:23)
[2018-07-16] MEDS ORDERED: AZITHROMYCIN IV 500 MG in NS 250 ML IV ONE (22:52)
--- NOTE | 2018-07-17 00:33 | CPEKG ---
Test Reason : OPEN Blood Pressure : / mmHG Vent. Rate : 095 BPM Atrial Rate : 181 BPM P-R Int : 163 ms QRS Dur : 099 ms QT Int : 395 ms P-R-T Axes : 000 025 026 degrees QTc Int : 497 ms Atrial fibrillation / atrial flutter Low voltage, extremity leads Borderline prolonged QT interval Confirmed by Kaylyn Molina ([id number]) on 07/17/2018 12:33:27 AM Referred By: Kaylyn Molina Confirmed By:Kaylyn Molina
--- NOTE | 2018-07-17 00:36 | PDGENHP ---
History and Physical - Chief Complaint Weakness, diarrhea - History of Present Illness 82 yo M w/ hx of CHF, CKD, AF, and bioprosthetic MV/TV anticoagulated with warfarin presents with weakness and diarrhea. His family brought him in saying he was weak today and mildly disoriented. The family reported diarrhea earlier today, which may have contained blood. The patient himself tells me he has been having diarrhea for 3 days after taking laxatives for constipation. He is A&Ox3 during my evaluation but appears quite deconditioned. His legs are very edematous and he tells me he has been gaining weight. He lives at home and manages his own medications using a pill box. In the ED his evaluation is notable for volume overload, JOHN, anemia, and possible pneumonia. He was treated with factor concentrate to reverse supratherapeutic INR in the setting of possible GI bleed. He is being admitted to step down unit for close monitoring. Case discussed with ED physician Dr. Molina; records reviewed and summarized above. History Information - Allergies/Home Medication List Allergies/Adverse Reactions: No Known Allergies Allergy (Verified 07/16/18 20:23) Home Medications: Multivitamins [Multivitamin (*)] 1 each PO DAILY 10/02/15 [Last Taken 11/30/17] Warfarin Sodium [Coumadin 5MG (*)] 5 mg PO SUTUWETHSA@21 10/25/15 [Last Taken ] Pantoprazole Sodium [Protonix 40mg (*)] 40 mg PO DAILY 12/21/15 [Last Taken 10/10] Spironolactone [Aldactone 25 MG (*)] 12.5 mg PO DAILY 12/21/15 [Last Taken 11/30] Warfarin Sodium [Coumadin 7.5MG (*)] 7.5 mg PO MOFR@21 12/21/15 [Last Taken 07/10] Ferrous Sulfate [Ferrous Sulf 325 MG (*)] 325 mg PO BID 05/04/17 [Last Taken 10/10] Gabapentin [Neurontin 300 MG (*)] 300 mg PO HS 05/04/17 [Last Taken 11/29/17] Potassium Cl [Klor-Con 20 meq (*)] 20 meq PO BID 05/04/17 [Last Taken 11/30/17] Herbals/Supplements -Info Only 1 ea PO DAILY 11/30/17 [Last Taken Unknown] Sennosides/Docusate Sodium [Senna-Docusate Sodium Tablet] 1 - 2 each PO DAILY PRN 11/30/17 [Last Taken Unknown] Furosemide [Lasix 20 MG (*)] 60 mg PO DAILY@1400 07/16/18 [Last Taken Unknown] Furosemide [Lasix 80 MG (*)] 80 mg PO DAILY@0600 07/16/18 [Last Taken Unknown] Levothyroxine [Synthroid 100 mcg (*)] 100 mcg PO DAILY06 07/16/18 [Last Taken Unknown] Metolazone [Zaroxolyn 5MG (*)] 5 mg PO MOFR 07/16/18 [Last Taken Unknown] Potassium Cl [Klor-Con 20 meq (*)] 20 meq PO MOFR 07/16/18 [Last Taken Unknown] guaiFENesin [Mucinex 600 MG (*)] 600 mg PO BID 07/16/18 [Last Taken Unknown] morphINE SR [Ms Contin/Oramorph 15 mg (*)] 15 mg PO BID 07/16/18 [Last Taken Unknown] oxyCODONE HCL/ACETAMINOPHEN [Oxycodone-Acetaminophen 10-325] 1 each PO Q6HRS PRN 07/16/18 [Last Taken Unknown] I have personally reviewed and updated: family history, medical history - Past Medical History atrial fibrillation, CHF Additional medical history: CKD - Surgical History Additional surgical history: Bioprosthetic TV, MV - Family History Positive for: cancer, CAD - Social History Smoking Status: Former smoker Review of Systems Review of Systems: ROS: 10pt was reviewed & negative except for what was stated in HPI & below Physical Exam Physical Exam: Temp Pulse Resp BP Pulse Ox 36.4 C 77 13 113/71 100 07/16/18 23:27 07/17/18 00:23 07/17/18 00:23 07/17/18 00:23 07/17/18 00:23 O2 (L/minute) 2 Constitutional: no apparent distress, chronically ill appearing Eyes: PERRL, EOMI Ears, Nose, Mouth, Throat: moist mucous membranes, no oral mucosal ulcers Cardiovascular: systolic murmur, irregularly irregular, edema (3+ b/l SULAIMAN) Respiratory: no respiratory distress, inspiratory crackles (Bibasilar) Gastrointestinal: normoactive bowel sounds, soft, non-tender abdomen Skin: warm, normal color Musculoskeletal: no muscle tenderness, generalized weakness Neurologic: AAOx3, CN II-XII Intact Psychiatric: interacting appropriately, not anxious Lab Data & Imaging Review 07/16/18 20:38 07/16/18 20:38 WBC 8.33 10^3/uL (3.80-9.50) 07/16/18 20:38 RBC 3.01 10^6/uL (4.40-6.38) L 07/16/18 20:38 Hgb 9.1 g/dL (13.7-17.5) L 07/16/18 20:38 Hct 28.5 % (40.0-51.0) L 07/16/18 20:38 MCV 94.7 fL (81.5-99.8) 07/16/18 20:38 MCH 30.2 pg (27.9-34.1) 07/16/18 20:38 MCHC 31.9 g/dL (32.4-36.7) L 07/16/18 20:38 RDW 16.7 % (11.5-15.2) H 07/16/18 20:38 Plt Count 166 10^3/uL (150-400) 07/16/18 20:38 MPV 10.6 fL (8.7-11.7) 07/16/18 20:38 Neut % (Auto) Not Reported 07/16/18 20:38 Lymph % (Auto) Not Reported 07/16/18 20:38 [place] % (Auto) Not Reported 07/16/18 20:38 Eos % (Auto) Not Reported 07/16/18 20:38 Baso % (Auto) Not Reported 07/16/18 20:38 Nucleat RBC Rel Count Not Reported 07/16/18 20:38 Absolute Neuts (auto) Not Reported 07/16/18 20:38 Absolute Lymphs (auto) Not Reported 07/16/18 20:38 Absolute Monos (auto) Not Reported 07/16/18 20:38 Absolute Eos (auto) Not Reported 07/16/18 20:38 Absolute Basos (auto) Not Reported 07/16/18 20:38 Absolute Nucleated RBC Not Reported 07/16/18 20:38 Immature Gran % Not Reported 07/16/18 20:38 Seg Neutrophils % 81.6 % 07/16/18 20:38 Band Neutrophils % 0.0 % 07/16/18 20:38 Lymphocytes % 6.1 % 07/16/18 20:38 Monocytes % 9.2 % 07/16/18 20:38 Eosinophils % 2.1 % 07/16/18 20:38 Basophils % 1.0 % 07/16/18 20:38 Metamyelocytes % 0.0 % 07/16/18 20: Myelocytes % 0.0 % 07/16/18 20: Promyelocytes % 0.0 % 07/16/18 20: Blast Cells % 0.0 % 07/16/18 20:38 Immature Gran # Not Reported 07/16/18 20:38 Absolute Seg Neuts 6.80 10^3/uL (1.70-6.50) H 07/16/18 20:38 Absolute Band Neuts 0.00 10^3/uL (0.00-0.70) 07/16/18 20:38 Absolute Lymphocytes 0.51 10^3/uL (1.00-3.00) L 07/16/18 20:38 Absolute Monocytes 0.77 10^3/uL (0.30-0.80) 07/16/18 20:38 Absolute Eosinophils 0.17 10^3/uL (0.03-0.40) 07/16/18 20:38 Absolute Basophils 0.08 10^3/uL (0.02-0.10) 07/16/18 20:38 Absolute Metamyelocyte 0.00 10^3/mL (0.00-0.00) 07/16/18 20:38 Absolute Myelocytes 0.00 10^3/mL (0.00-0.00) 07/16/18 20:38 Absolute Promyelocytes 0.00 10^3/uL (0.00-0.00) 07/16/18 20:38 Absolute Plasma Cells 0.00 10^3/uL (0.00-0.00) 07/16/18 20:38 Nucleated RBCs 0 /100 WBC (0-0) 07/16/18 20:38 Absolute Blast Cells 0.00 10^3/uL (0.00-0.00) 07/16/18 20:38 Plasma Cells % 0.0 % 07/16/18 20:38 Platelet Estimate ADEQUATE (ADEQ) 07/16/18 20:38 Polychromasia 1+ H 07/16/18 20:38 Hypochromasia 2+ H 07/16/18 20:38 Basophilic Stippling 1+ H 07/16/18 20:38 Microcytic Cells 1+ H 07/16/18 20:38 Oval Macrocytes 1+ H 07/16/18 20:38 Echinocytes 1+ H 07/16/18 20:38 Elliptocytes 1+ H 07/16/18 20:38 PT 44.7 SEC (12.0-15.0) H 07/16/18 20:38 INR 5.15 (0.83-1.16) H* 07/16/18 20:38 Sodium 134 mEq/L (135-145) L 07/16/18 20:38 Potassium 4.6 mEq/L (3.5-5.2) 07/16/18 20:38 Chloride 96 mEq/L (97-110) L 07/16/18 20:38 Carbon Dioxide 28 mEq/l (22-31) 07/16/18 20:38 Anion Gap 10 mEq/L (6-14) 07/16/18 20:38 BUN 128 mg/dL (7-23) H* 07/16/18 20:38 Creatinine 2.0 mg/dL (0.7-1.3) H 07/16/18 20:38 Estimated GFR 32 07/16/18 20:38 Glucose 107 mg/dL (70-100) H 07/16/18 20:38 Calcium 9.5 mg/dL (8.5-10.4) 07/16/18 20:38 Total Bilirubin 0.8 mg/dL (0.1-1.4) 07/16/18 20:38 POC Troponin I 0.01 ng/mL (0.00-0.08) 07/16/18 20:43 NT-Pro-B Natriuret Pep 3390 pg/mL (0-450) H 07/16/18 20:38 Procalcitonin 0.24 ng/mL (0.02-0.10) H 07/16/18 20:38 Stool Occult Bld Scrn POSITIVE (NEGATIVE) H 07/16/18 21:43 Imaging Review: Imaging Impressions Chest X-Ray 07/16/18 20:27 Impression: Left lower lobe airspace consolidation and pleural effusion/thickening compatible with pneumonia. Less prominent consolidation right lower lobe. Cardiomegaly post open heart surgery.. Visualized and Interpreted EKG results: Yes EKG Interpretation: Positive for: other (Atrial fibrillation) Assessment & Plan Assessment: 82 yo M w/ hx of CHF, CKD, AF, and bioprosthetic MV/TV anticoagulated with warfarin presents with CHF exacerbation, diarrhea (possibly bloody), JOHN, and confusion. Plan: 1. Diarrhea, possible GI bleed - Patient with diarrhea x3 days after taking laxatives for constipation at home. Per ED report, the family thought the diarrhea appeared bloody. H/H 9.1/28.5, which is lower than previous values and BUN is quite elevated. INR was 5.1 on admission, now s/p Kcentra. His VS are stable and he has not had any bowel movements since arriving to the hospital. - Admit to SDU - Maintain NPO - Check GI PCR (Hx of C. Diff in 2018) - Monitor closely in SDU - Recheck CBC in the morning - Hold warfarin, monitor INR - GI consult if concern for GI bleeding continues 2. Chronic diastolic heart failure with acute exacerbation - Patient noted to have severe lower extremity edema, elevated BNP, and pleural effusions. He is prescribed furosemide 80 mg AM/60 mg PM daily, spironolactone 12.5 mg qD, and metolazone twice weekly as an outpatient. However, he manages his own medications at home and it is unclear to me how successful he is with this. - S/p Lasix 40 mg IV x1 in the ED - Will schedule Lasix 80 mg IV BID noting CKD and high baseline diuretic need - Monitor I/Os, daily weights 3. Pneumonia - LLL pneumonia seen on CXR, patient is minimally symptomatic from this and saturating well on RA. - S/p CTX/Azithro in ED, will observe off of further antibiotics - Reinitiate CAP coverage if develops infectious symptoms - Respiratory PCR ordered 4. Acute metabolic encephalopathy - Overall this appears mild and is related to multiple, active medical problems as detailed above. - Avoid centrally acting medication as able 5. CKD - Serum creatinine 2.0 on admission, which is near his baseline. - Avoid nephrotoxic agents, renally dose medications - Monitor BMP noting active diuresis 6. Atrial fibrillation - Patient is on warfarin for this, INR 5.1 on admission. - S/p Kcentra noting concern for GI bleed - Restart warfarin without bridge if H/H stable - Monitor INR 7. Hx bioprosthetic MV and TV 8. Deconditioning - Patient appears quite deconditioned, will likely need SNF. - PT/OT evaluations Diet - NPO Code - Full Ppx - SCDs Dispo - Admit under inpatient status
[2018-07-17 05:40] LABS: PLATELET COUNT 142 10^3/uL (150-400)
[2018-07-17 06:07] LABS: INR 1.67 (0.83-1.16); PROTIME(PATIENT) 18.9 SEC (12.0-15.0)
--- NOTE | 2018-07-17 07:10 | PDMN ---
Medical Necessity Medical necessity: [facility] M190 heart failure: A-2 days: 82 yo M with PMHX: CHF, CKD, AF, bioprothetic MV/TV anticoagulated with warfarin present with weakness and diarrhea, disorientation and blood in stool. His legs are very edematous and has gained wt. CT shows plueral effusions /thickening compatible with pna, . - cardiomegaly post open heart sgy., elevated BNP( 3390 ) , BUN ( 128) , INR ( 5.1) , pt will be NPO anticipate > 2 MN ongoing med nec care, further monitoring, eval and tx. further monitoring of H/H ( 11/20, 8.09/18)
--- NOTE | 2018-07-17 08:36 | HOSPPROG ---
Hospitalist Progress Note Assessment/Plan: # dCHF exacerbation - diuresed overnight; slightly hypotensive, will hold further diuretics for now - check echo given decompensation and valve disease # bioprosthetic TVR # bioprosthetic MVR # atrial fibrillation - hold warfarin; rate controlled # supratherapeutic INR - s/p KCentra and vitamin K # possible GIB - no urgent need for scope - downtrend in hgb, elevated BUN noted - protonix IV BID, trend hgb - GI consult # normocytic anemia - follow today as above # JOHN/uremia - slightly improved overnight with diuresis # RLL pneumonia - start rocephin - neg GI panel noted, doubt legionella with consolidation, thus will not cover atypicals # acute metabolic encephalopathy - related to above; mostly somnolent on my exam # DVT ppx - SCDs # FCFT Subjective: no BM overnight; patient is coughing Objective: Vital Signs Temp Pulse Resp BP Pulse Ox 36.6 C 82 14 94/61 L 96 07/17/18 04:00 07/17/18 06:00 07/17/18 06:00 07/17/18 06:00 07/17/18 06:00 Microbiology 07/17/18 00:34 Respiratory Panel (PCR) - Final Nasal, Sinus - Swab No Organism Detected By Pcr Laboratory Results 07/17/18 05:28 07/17/18 05:28 07/16/18 07/17/18 07/18/18 05:59 05:59 05:59 Intake Total 1360 Output Total 1500 Balance -140 PT 18.9 SEC (12.0-15.0) H 07/17/18 05:28 INR 1.67 (0.83-1.16) H 07/17/18 05:28 chart reviewed discussed with Dr Barillas - Physical Exam Constitutional: chronically ill appearing, cachectic, other (bruises throughout body) Cardiovascular: no murmur, rub, or gallop, irregularly irregular Respiratory: inspiratory crackles (R base), No reduced air movement, No expiratory wheeze, No bronchial breath sounds Gastrointestinal: soft, non-tender abdomen, no palpable masses, No guarding, No rebound, No distension ICD10 Worksheet Patient Problems: Problems Problem Status Onset Anemia Acute Coagulation disorder due to circulating anticoagulants Acute GI bleed Acute Pneumonia Acute Acute blood loss anemia Acute Acute kidney injury Acute Atrial fibrillation Acute CHF exacerbation Acute Coagulopathy Acute Dehydration Acute Diarrhea Acute Elevated troponin Acute Leukocytosis Acute Peripheral edema Acute S/P TVR (tricuspid valve replacement) Acute 12/25/15 Permanent atrial fibrillation Chronic Severe tricuspid regurgitation Chronic
[2018-07-17] MEDS ORDERED: FUROSEMIDE 100 MG/10 ML VIAL IVP SCH (09:00)
[2018-07-17] MEDS ORDERED: SPIRONOLACTONE 25 MG TAB PO SCH (09:00)
[2018-07-17] MEDS ORDERED: POTASSIUM CL 20 MEQ TAB PO SCH (09:00)
[2018-07-17] MEDS: PANTOPRAZOLE SODIUM 40 MG VIAL IVP SCH ×2 (10:08→21:27)
[2018-07-17] MEDS: guaiFENesin 600 MG TAB.ER PO SCH ×2 (10:08→21:27)
[2018-07-17] MEDS: morphINE SR 15 MG TAB PO SCH ×2 (10:08→21:27)
[2018-07-17] MEDS: FERROUS SULFATE 325 MG TAB PO SCH ×2 (10:08→21:27)
--- NOTE | 2018-07-17 10:45 | GCON ---
[f rep st] CONSULTATION ENERGY CONSERVATION DIRECTOR CONSULTATION REASON FOR ADMISSION: Pneumonia, possible GI bleed. Mr. Ely is an 82-year-old white male with extensive past medical history including atrial fibrillati on, congestive heart failure, chronic renal insufficiency. He also has a mitral and tricuspid valve replacement, for which he is on Coumadin. He is brought in by family for weakness and confusion, als o having significant diarrhea. He was seen in the emergency room, subsequently admitted to the [facility] unit. Currently, patient is awake. He is able to answer questions, but is somewhat somnol ent. Most of the history is gleaned from the medical record. REVIEW OF SYSTEMS: A [id number] review of systems was attempted, but unable to be performed second kahlil to somnolence. ALLERGIES: None to medications. SOCIAL HISTORY: Previous heavy smoker, none for many years. No significant alcohol use. He is clary ied, with children. He has lived in [place] all of his life. FAMILY HISTORY: Significant for coronary artery disease. PAST SURGICAL HISTORY: Again, he has bioprosthetic tricuspid mitral valve. PHYSICAL EXAM: VITAL SIGNS: Blood pressure 97/58, pulse 76, respiration 11, temperature 36.3, oxyge n saturation 99% on 1 L. GENERAL: He is a thin, elderly white male who is resting comfortably on sup plemental oxygen. HEENT: Eyes are PERRLA, EOMI. Throat shows no erythema or tonsillar hypertrophy. NECK: Supple. No cervical adenopathy. HEART: Regular rate and rhythm with a 3/6 systolic murmur left sternal border without radiation. LUNGS: Diminished breath sounds. A few bibasilar crackles, but there is no wheeze. ABDOMEN: Soft, nontender. Bowel sounds are present. EXTREMITIES: Show 2+ lower extremity edema. LABORATORIES: White count 11.4, hemoglobin 8.7, hematocrit 27, platelet count is 142. INR is 1.67, down from 5.15. Sodium 137, potassium 3.5, chloride 98, CO2 is 31, BUN is 119, creatinine 1.9, gluco se is 91. Urinalysis is negative. Stool for occult blood is positive. Chest x-ray reveals left lower lobe pneumonia. IMPRESSION: 1. Gastrointestinal bleed, likely secondary to high INR. 2. Left lower lobe community-acquired pneumonia. 3. Altered mental status. 4. History of tricuspid and mitral valve replacement. 5. Hypocoagulable state. This has improved. 6. Chronic diastolic heart failure. 7. Chronic renal insufficiency with marked elevation in BUN, likely secondary to gastrointestinal bl eed. RECOMMENDATIONS: 1. Agree with admission to the SD unit. 2. N.p.o. for now. 3. Hold Coumadin. 4. IV antibiotics, agree with current coverage. 5. Aggressive hydration. 6. DVT and PE prophylaxis. 7. Stress ulcer prophylaxis. /[id number]/MODL
--- NOTE | 2018-07-17 11:08 | ASMTCMCOM ---
CM Note CM Note Notes: Patient brought to ED by family for AMS and 3 day hx diarrhea. Found to have dCHF exacerbation, PNA, and possible GI bleed. He lives with his and is normally independent. PT/OT ordered. Case Management will follow for d/c needs. Date Signed: 07/17/2018 11:07 AM Electronically Signed By:Miley Anderson RN
[2018-07-17] MEDS ORDERED: NS 1,000 ML IV SCH (16:15)
--- NOTE | 2018-07-17 19:36 | SOAPPROG ---
SOAP Progress Note Assessment/Plan: Assessment: Plan: 07/17/18 19:32 GI note See dictated note for details. Hematochezia? No signs of active GI bleed with stable hemoglobin and no significant bloody BMs. Had prior colonoscopy in late 2013. Would recommend conservative therapy for now. Will hold on E/C unless clinical situation changes. Objective: Vital Signs Temp Pulse Resp BP Pulse Ox 36.1 C 75 11 L 95/51 L 99 07/17/18 16:00 07/17/18 16:00 07/17/18 16:00 07/17/18 16:00 07/17/18 16:00 Microbiology 07/17/18 00:34 Respiratory Panel (PCR) - Final Nasal, Sinus - Swab No Organism Detected By Pcr Laboratory Results 07/17/18 18:26 07/17/18 05:28 07/16/18 07/17/18 07/18/18 05:59 05:59 05:59 Intake Total 1360 Output Total 1500 1400 Balance -140 -1400 PT 18.9 SEC (12.0-15.0) H 07/17/18 05:28 INR 1.67 (0.83-1.16) H 07/17/18 05:28 ICD10 Worksheet Patient Problems: Problems Problem Status Onset CHF exacerbation Acute Severe tricuspid regurgitation Chronic S/P TVR (tricuspid valve replacement) Acute 12/25/15 Acute blood loss anemia Acute Coagulopathy Acute Permanent atrial fibrillation Chronic Atrial fibrillation Acute Dehydration Acute Leukocytosis Acute Diarrhea Acute Elevated troponin Acute Acute kidney injury Acute Peripheral edema Acute Pneumonia Acute GI bleed Acute Anemia Acute Coagulation disorder due to circulating anticoagulants Acute
[2018-07-17] MEDS: GABAPENTIN 300 MG CAP PO SCH (21:27)
--- NOTE | 2018-07-17 22:21 | GCON ---
[f rep st] CONSULTATION DATE OF CONSULTATION: 07/17/2018 REFERRING PHYSICIAN: Cristo Rose MD REASON FOR CONSULTATION: Hematochezia. CHIEF COMPLAINT: Increased weakness/cough. HISTORY OF PRESENT ILLNESS: The patient is an 82-year-old male with a history of CHF, bioprosthetic mitral and tricuspid valves, Coumadin use, atrial fibrillation, who presents to [facility] with complaints of increasing weakness, cough, diarrhea, as well as a change in bowel habits. The patient is currently confused, thus most of his history was obtained through the chart. According to the chart, the family states that he had diarrhea which may have contained minimal amounts of bright red blood. The patient does state that he has had diarrhea for the last several days. He denies any exacerbating or alleviating factors to symptoms. He has had increasing shortness of breath and has had increasing leg swelling. On admission to the emergency room, he was found to have a super-therapeutic INR of 5.15, as well as a hemoglobin level of 9.1. He has not had any recent bowel movement. He denies any abdominal pain, nausea , or vomiting. He did have a prior colonoscopy on 12/26/2013 with diverticulosis as well as one tubular adenoma. I am being asked by Dr. Rose to evaluate the patient in consultation regarding his hematochezia. PAST MEDICAL HISTORY: Atrial fibrillation, mitral regurgitation, hypertension, CHF, hypothyroidism. PAST SURGICAL HISTORY: Bioprosthetic mitral valve and tricuspid valve, left leg surgery, hernia repair. ALLERGIES: NKDA. MEDICATIONS: Warfarin, pantoprazole, spironolactone, ferrous sulfate, gabapentin, potassium, Lasix, levothyroxine, Zaroxolyn, morphine, oxycodone. FAMILY HISTORY: Father had colon cancer at age 78. Coronary artery disease. SOCIAL HISTORY: Former smoker. . REVIEW OF SYSTEMS: A 14-point comprehensive review of systems was asked. Pertinent positives and negative per HPI. PHYSICAL EXAM: VITAL SIGNS: Blood pressure 96/57, heart rate 69, temperature is 36.4. GENERAL: Awake. Lethargic. Confused. Chronically ill-appearing. HEENT: Anicteric sclerae. Oral mucosa moist. NECK: No JVD. CARDIOVASCULAR: Irregular rhythm. LUNGS: Bibasilar crackles. No wheezing. ABDOMEN: Soft, nontender, nondistended. Positive bowel sounds. No guarding or rebound. EXTREMITIES: Positive edema. SKIN: No rash. Normal color. NEUROLOGIC: 2 through 12 grossly intact. PSYCHIATRIC: Interacting appropriately, but lethargic. MUSCULOSKELETAL: No obvious joint effusions. LABORATORY DATA: Blood work: WBC 11.44, hemoglobin 8.7, platelets 142. INR 1.67, was 5.15 on admission. Sodium 137, potassium 3.5, chloride 98, bicarb 31 , BUN 119, creatinine 1.9. Total bilirubin 1.4, AST 30, ALT 25. ASSESSMENT AND PLAN: 1. Hematochezia-unsure by history. Has not had a recent bowel movement. Does have post-hemorrhagic anemia? BUN elevated, but doubt this is due to an upper gastrointestinal bleed due to the lack of bowel movements. At this time, I recommend a proton pump inhibitor. The bleed was in the face of a super- therapeutic INR which has now been corrected. Due to the lack of evidence of an active gastrointestinal bleed and significant comorbidities, we will recommend to hold off on any upper endoscopy and colonoscopy at this time. Would recommend to monitor hemoglobin and hematocrit and transfuse as needed. 2. History of bioprosthetic tricuspid and mitral valves. 3. Atrial fibrillation 4. Hypothyroidism. 5. Congestive heart failure. Thank you very much for this consultation. /[id number]/MODL MTDD
[2018-07-18 06:50] LABS: INR 1.36 (0.83-1.16); PROTIME(PATIENT) 16.2 SEC (12.0-15.0)
[2018-07-18] MEDS: LEVOTHYROXINE 100 MCG TAB PO SCH (07:13)
[2018-07-18] MEDS: guaiFENesin 600 MG TAB.ER PO SCH ×2 (08:26→21:07)
[2018-07-18] MEDS: FERROUS SULFATE 325 MG TAB PO SCH ×2 (08:26→21:06)
[2018-07-18] MEDS: PANTOPRAZOLE SODIUM 40 MG VIAL IVP SCH (08:26)
[2018-07-18] MEDS: morphINE SR 15 MG TAB PO SCH ×2 (08:26→21:06)
--- NOTE | 2018-07-18 08:54 | PDINTPN ---
Certified Ophthalmic Assistant Progress Note Assessment/Plan: Assessment/plan: * Left lower lobe [id number]. Clinically improved -continue current antibiotics * GI bleed-likely secondary to hypocoagulable state from Coumadin * Anemia-H&H stable * For chronic renal insufficiency-BUN and creatinine have declined -will follow closely * Altered mental status-resolved * History of tricuspid and mitral valve replacements * Atrial fibrillation * VT prophylaxis * Stress ulcer prophylaxis * PT/OT * Disposition-can likely transfer to floor Subjective: Sitting up in chair. Resting comfortably. Breathing easily. Cough has improved. Objective: Vital Signs Temp Pulse Resp BP Pulse Ox 36.6 C 98 14 106/60 94 07/18/18 05:59 07/18/18 05:59 07/18/18 05:59 07/18/18 05:59 07/18/18 05:59 Microbiology 07/17/18 00:34 Respiratory Panel (PCR) - Final Nasal, Sinus - Swab No Organism Detected By Pcr Laboratory Results 07/18/18 00:20 07/18/18 05:45 07/17/18 07/18/18 07/19/18 05:59 05:59 05:59 Intake Total 1360 400 Output Total 1500 1900 Balance -140 -1500 PT 16.2 SEC (12.0-15.0) H 07/18/18 05:45 INR 1.36 (0.83-1.16) H 07/18/18 05:45 - Time Spent With Patient Time Spent With Patient: 35 min of time spent with patient, over 1/2 involved with coordination of care or counseling. Case discussed with nurse and patient Physical Exam - Physical Exam General Appearance: alert, no apparent distress EENT: PERRL/EOMI Neck: non-tender, supple Respiratory: crackles, No respiratory distress, No wheezing (Left base) Cardiac/Chest: systolic murmur, irregularly irregular Peripheral Pulses: 2+: carotid (R), carotid (L), femoral (R), femoral (L), dorsalis-pedis (R), dorsalis-pedis (L) Abdomen: normal bowel sounds, non-tender, soft Male Genitalia: deferred Rectal: deferred Skin: normal color, warm/dry Extremities: non-tender Neuro/Psych: alert, normal mood/affect, oriented x 3 ICD10 Worksheet Patient Problems: Problems Problem Status Onset Anemia Acute Coagulation disorder due to circulating anticoagulants Acute GI bleed Acute Pneumonia Acute Acute blood loss anemia Acute Acute kidney injury Acute Atrial fibrillation Acute CHF exacerbation Acute Coagulopathy Acute Dehydration Acute Diarrhea Acute Elevated troponin Acute Leukocytosis Acute Peripheral edema Acute S/P TVR (tricuspid valve replacement) Acute 12/25/15 Permanent atrial fibrillation Chronic Severe tricuspid regurgitation Chronic
[2018-07-18] MEDS: oxyCODONE IR 5 MG TAB PO PRN (09:28)
--- NOTE | 2018-07-18 09:35 | ECHO ---
[email or web address] [address] [address] Main: [phone] Echocardiography Examination Transthoracic Name: VIKTORIYA ARIAS MR#: [id number] Study Date: 07/17/2018 Study Time: 01:55 PM Date of : 1935 Age: 82 year(s) Height: 170.2 cm (67 in.) Weight: 73.48 kg (162 lb.) BSA: 1.85 m2 Gender: Male Examination: Echo Contrast: Image Quality: Adequate Rhythm: Heart Rate: BP: 96 mmHg/57 mmHg Indication: CHF Procedure Staff Referring Physician: Manager Integrated: Edna Howell RDCS Reading Physician: Fito Allred MD Requesting Provider: Ordering Physician: Cristo Rose Indication: CHF Measurements Chambers AV/MV Label Value Normal Value Label Value Normal Value LVOTd 2.1 cm (1.9cm - 2.1cm) AV PGmax 6 mmHg LVOT VTI 11 cm (18cm - 22cm) AV PGmean 4 mmHg LVDd, 2D 4 cm (4.2cm - 5.9cm) AV Vmax 1.25 m/s LVDs, 2D 2.7 cm (2.1cm - 4cm) ROBBIN (VTI) 1.3 cm2 IVSd, 2D 1 cm (0.6cm - 1.1cm) MV E Vmax 1.73 m/s LVPWd, 2D 1 cm (0.6cm - 1cm) MV DT 225 ms LVEF, BP 61 % (55% - 70%) MV VTI 41.2 cm LVEF, 2D 62 % (54% - 74%) MVA D (continuity eq.) 0.9 cm2 LVOT PGmean 1 mmHg MV PGmax 18 mmHg LVOT Vmean 0.4 m/s MV PGmean 7 mmHg RVDd, 2D 2.7 cm (1.9cm - 3.8cm) MV PHT 0.06 s LADs, 2D 5.7 cm (3cm - 4cm) MVA PHT 3.4 cm2 RA Area 52.9 cm2 MV PHT 64 ms Additional Vessels TV/PV Label Value Normal Value Label Value Normal Value AoAsc 3.2 cm RA Pressure 5 mmHg AoRoot, 2D 3.7 cm (1.4cm - 2.6cm) RVSP 51 mmHg TR Pmax 46 mmHg TR Vmax 3.39 m/s Patient: VIKTORIYA ARIAS Study Date: 07/17/2018 Page 1 of 3 01:55 PM PV PGmax 2 mmHg PV Vmax, Caliper 0.77 m/s (0.6m/s - 0.9m/s) Conclusions Normal LV systolic function, ejection fraction 61%. Mildly reduced RV function. Mildly dilated right ventricle. Severe biatrial enlargement. Bioprosthetic mitral valve, well seated. Mild mitral regurgitation. Mean gradient across mitral prosthesis is 7 mmHg. Mild aortic insufficiency. Mild aortic calcification. Bioprosthetic tricuspid valve, well seated. Moderate to severe tricuspid regurgitation across tricuspid bioprosthesis. Moderate pulmonary hypertension with estimated RVSP 51 mm of mercury. Findings Left Ventricle: Left ventricle is normal in size. Normal global systolic left ventricular function. The ejection fraction, measured by Simpsons method, is 61 %. EF range is estimated at 60 % - 65 %. Left ventricle wall thickness is normal. There are no regional wall motion abnormalities. No LV hypertrophy. Right Ventricle: Dilated right ventricle. Right ventricular systolic function is mildly reduced. Left Atrium: The left atrium is severely dilated. Right Atrium: The right atrium is severely dilated. Mitral Valve: A bioprosthetic mitral valve is in place. The prosthetic mitral valve leaflets appear normal. The mitral valve prosthesis exhibits normal function. Mild MV prosthesis regurgitation. Mitral Valve Measurements MV PGmean is 7 mmHg. Aortic Valve: Aortic leaflets are structurally normal. Mild aortic regurgitation is present. There is no aortic stenosis. Aortic leaflets exhibit calcification. Tricuspid Valve: A bioprosthesis is present in the tricuspid valve. Tricuspid valve prosthesis is regurgitant. Moderate to severe prosthesis regurgitation. Right Ventricular systolic pressure is measured at 51 mmHg. Pulmonary artery pressure moderately increased. Pulmonic Valve: Pulmonic leaflets are structurally normal. Aorta: The aortic root size in 2D measures 3.7 cm. The ascending aorta measures 3.2 cm. Aorta Measurements AoRoot, 2D is 3.7 cm. Exam Details Procedure Ordered: Echo Procedure Status: Routine study Image Quality: Adequate Facility Location: Cardiac Echo 1 Patient: VIKTORIYA ARIAS Study Date: 07/17/2018 Page 2 of 3 01:55 PM (No Signature Object) Patient: VIKTORIYA ARIAS Study Date: 07/17/2018 Page 3 of 3 01:55 PM [id number]
[2018-07-18] MEDS: OXYCODONE/APAP 5/325 TAB PO PRN (09:36)
[2018-07-18] MEDS ORDERED: PROTOCOL POTASSIUM 1 DOSE MISC PRN (09:42)
[2018-07-18] MEDS ORDERED: POTASSIUM CL 10 MEQ TAB PO ONE ×2 (09:45→20:45)
--- NOTE | 2018-07-18 09:52 | HOSPPROG ---
Hospitalist Progress Note Assessment/Plan: # dCHF exacerbation - will cautiously restart diuresis - follow BP closely - initial echo without change - final read pending - will start lasix today cautiously (40 iv bid, one dose today) along with aldactone 12.5 daily # bioprosthetic TVR # bioprosthetic MVR # atrial fibrillation - restart warfarin today # supratherapeutic INR - s/p KCentra and vitamin K # possible GIB - suspect self limited in setting of supratherapeutic INR, no scope planned - hgb has been stable - change protonix to PO # normocytic anemia - follow today as above # JOHN/uremia - slowly improving # RLL pneumonia - start rocephin - neg GI panel noted, doubt legionella with consolidation, thus will not cover atypicals # acute metabolic encephalopathy - resolving - much better today # R arm pain - check XR # DVT ppx - SCDs # FCFT # dispo - PCU Subjective: c/o R arm pain Objective: Vital Signs Temp Pulse Resp BP Pulse Ox 36.6 C 98 14 106/60 94 07/18/18 05:59 07/18/18 05:59 07/18/18 05:59 07/18/18 05:59 07/18/18 05:59 Microbiology 07/17/18 00:34 Respiratory Panel (PCR) - Final Nasal, Sinus - Swab No Organism Detected By Pcr Laboratory Results 07/18/18 00:20 07/18/18 05:45 07/17/18 07/18/18 07/19/18 05:59 05:59 05:59 Intake Total 1360 400 Output Total 1500 1900 Balance -140 -1500 PT 16.2 SEC (12.0-15.0) H 07/18/18 05:45 INR 1.36 (0.83-1.16) H 07/18/18 05:45 - Physical Exam Constitutional: uncomfortable Cardiovascular: no murmur, rub, or gallop, irregularly irregular Respiratory: no respiratory distress, no rales or rhonchi, clear to auscultation Gastrointestinal: soft, non-tender abdomen, No guarding, No rebound, No distension Musculoskeletal: other (difficulty moving R arm) ICD10 Worksheet Patient Problems: Problems Problem Status Onset CHF exacerbation Acute Severe tricuspid regurgitation Chronic S/P TVR (tricuspid valve replacement) Acute 12/25/15 Acute blood loss anemia Acute Coagulopathy Acute Permanent atrial fibrillation Chronic Atrial fibrillation Acute Dehydration Acute Leukocytosis Acute Diarrhea Acute Elevated troponin Acute Acute kidney injury Acute Peripheral edema Acute Pneumonia Acute GI bleed Acute Anemia Acute Coagulation disorder due to circulating anticoagulants Acute
--- NOTE | 2018-07-18 09:54 | ASMTCMCOM ---
CM Note CM Note Notes: Spoke with patient. He acknowleges that he is not well enough to return home. Lives w step-daughter who is having knee surgery in three days. I called his brother Aquiles who requested referrals to [facility] and [facility]. Faisal will decide on facility in next few days. Case Management will follow. Date Signed: 07/18/2018 09:54 AM Electronically Signed By:Miley Anderson RN
[2018-07-18] MEDS ORDERED: PNEUMOC 13-VAL CONJ-DIP CRM/PF 0.5 ML SYR (PREVNAR 13) IM ONE (10:01)
[2018-07-18] MEDS: SPIRONOLACTONE 25 MG TAB PO SCH (10:28)
[2018-07-18] MEDS: FUROSEMIDE 40 MG/4 ML VIAL IVP SCH (14:49)
--- NOTE | 2018-07-18 18:48 | SOAPPROG ---
SOAP Progress Note Assessment/Plan: Assessment: Plan: 07/17/18 19:32 GI note See dictated note for details. Hematochezia? No signs of active GI bleed with stable hemoglobin and no significant bloody BMs. Had prior colonoscopy in late 2013. Would recommend conservative therapy for now. Will hold on E/C unless clinical situation changes. 07/18/18 18:45 A/P 1. GI bleed- questionable hemaotchezia? Supratherapeutic INR s/p reversal. No recent bloody BM. No clinical evidence of active GI bleed. Recommend to monitor H/H. Please call if needed. GI will sign off. Thank you for the consultation! Subjective: cc: Follow up GI bleed No c/o of abdominal pain. No recent bloody BM. Objective: Vital Signs Temp Pulse Resp BP Pulse Ox 36.6 C 78 13 109/65 90 L 07/18/18 14:53 07/18/18 14:53 07/18/18 14:53 07/18/18 14:53 07/18/18 14:53 Laboratory Results 07/18/18 00:20 07/17/18 07/18/18 07/19/18 05:59 05:59 05:59 Intake Total 1360 400 700 Output Total 1500 1900 575 Balance -140 -1500 125 PT 16.2 SEC (12.0-15.0) H 07/18/18 05:45 INR 1.36 (0.83-1.16) H 07/18/18 05:45 Physical Exam - Physical Exam General Appearance: alert, no apparent distress EENT: No scleral icterus (R), No scleral icterus (L) Respiratory: lungs clear, normal breath sounds, No rales, No rhonchi, No wheezing Cardiac/Chest: irregularly irregular Abdomen: normal bowel sounds, non-tender, soft, No distended, No guarding, No rebound Skin: normal color, warm/dry Neuro/Psych: normal mood/affect, No abnormal distributor of directories II-XII ICD10 Worksheet Patient Problems: Problems Problem Status Onset CHF exacerbation Acute Severe tricuspid regurgitation Chronic S/P TVR (tricuspid valve replacement) Acute 12/25/15 Acute blood loss anemia Acute Coagulopathy Acute Permanent atrial fibrillation Chronic Atrial fibrillation Acute Dehydration Acute Leukocytosis Acute Diarrhea Acute Elevated troponin Acute Acute kidney injury Acute Peripheral edema Acute Pneumonia Acute GI bleed Acute Anemia Acute Coagulation disorder due to circulating anticoagulants Acute
[2018-07-18] MEDS ORDERED: WARFARIN SODIUM 5 MG TAB PO SCH (21:00)
[2018-07-18] MEDS: GABAPENTIN 300 MG CAP PO SCH (21:06)
[2018-07-18] MEDS: PANTOPRAZOLE SODIUM 40 MG TAB PO SCH (21:07)
[2018-07-19 04:30] LABS: PLATELET COUNT 160 10^3/uL (150-400)
[2018-07-19 04:37] LABS: INR 1.42 (0.83-1.16); PROTIME(PATIENT) 16.7 SEC (12.0-15.0)
[2018-07-19] MEDS: LEVOTHYROXINE 100 MCG TAB PO SCH (06:05)
[2018-07-19] MEDS ORDERED: POTASSIUM CL 10 MEQ TAB PO ONE ×2 (07:28→19:46)
[2018-07-19] MEDS: FUROSEMIDE 40 MG/4 ML VIAL IVP SCH ×2 (08:02→16:11)
[2018-07-19] MEDS: FERROUS SULFATE 325 MG TAB PO SCH ×2 (08:06→20:24)
[2018-07-19] MEDS: SPIRONOLACTONE 25 MG TAB PO SCH (08:07)
[2018-07-19] MEDS: PANTOPRAZOLE SODIUM 40 MG TAB PO SCH ×2 (08:07→20:24)
[2018-07-19] MEDS: guaiFENesin 600 MG TAB.ER PO SCH ×2 (08:07→20:24)
[2018-07-19] MEDS ORDERED: METOLAZONE 5 MG TAB PO SCH (08:15)
[2018-07-19] MEDS ORDERED: POTASSIUM CL 20 MEQ TAB PO SCH (08:15)
[2018-07-19] MEDS: morphINE SR 15 MG TAB PO SCH ×2 (08:20→20:24)
--- NOTE | 2018-07-19 14:05 | HOSPPROG ---
Hospitalist Progress Note Assessment/Plan: # dCHF exacerbation - did well with diuresis - echo with worsened pulm htn - cont lasix 40 iv bid # bioprosthetic TVR # bioprosthetic MVR # pulm htn # atrial fibrillation - cont warfarin # supratherapeutic INR - s/p KCentra and vitamin K, now normal # possible GIB - suspect self limited in setting of supratherapeutic INR, no scope planned - hgb has been stable - change protonix to PO # normocytic anemia - follow today as above # JOHN/uremia - slowly improving with diuresis # RLL pneumonia - start rocephin - neg GI panel noted, doubt legionella with consolidation, thus will not cover atypicals # possible aspiration - video swallow today # acute metabolic encephalopathy - resolving - much better today # R arm pain - XR neg for fracture, possible chronic rotator cuff tear # DVT ppx - SCDs # FCFT Subjective: seen with his family; he c/o thirst Objective: Vital Signs Temp Pulse Resp BP Pulse Ox 36.8 C 101 H 18 108/66 96 07/19/18 11:14 07/19/18 11:14 07/19/18 11:14 07/19/18 11:14 07/19/18 11:14 Laboratory Results 07/19/18 03:06 07/19/18 03:06 07/18/18 07/19/18 07/20/18 05:59 05:59 05:59 Intake Total 400 700 Output Total 1900 1525 Balance -1500 -825 PT 16.7 SEC (12.0-15.0) H 07/19/18 03:06 INR 1.42 (0.83-1.16) H 07/19/18 03:06 chart reviewed humerus XR personally reviewed - Physical Exam Constitutional: other (sleeping, awakes easily to voice) Eyes: anicteric sclera Cardiovascular: edema (1+ bilat LE) Respiratory: no respiratory distress Gastrointestinal: No distension Genitourinary: No hernandez in urethra Skin: warm Musculoskeletal: full muscle strength Neurologic: AAOx3 Psychiatric: not anxious ICD10 Worksheet Patient Problems: Problems Problem Status Onset CHF exacerbation Acute Severe tricuspid regurgitation Chronic S/P TVR (tricuspid valve replacement) Acute 12/25/15 Acute blood loss anemia Acute Coagulopathy Acute Permanent atrial fibrillation Chronic Atrial fibrillation Acute Dehydration Acute Leukocytosis Acute Diarrhea Acute Elevated troponin Acute Acute kidney injury Acute Peripheral edema Acute Pneumonia Acute GI bleed Acute Anemia Acute Coagulation disorder due to circulating anticoagulants Acute
[2018-07-19] MEDS: oxyCODONE IR 5 MG TAB PO PRN (14:20)
[2018-07-19] MEDS: OXYCODONE/APAP 5/325 TAB PO PRN (14:21)
[2018-07-19] MEDS: GABAPENTIN 300 MG CAP PO SCH (20:24)
[2018-07-19] MEDS ORDERED: WARFARIN SODIUM 7.5 MG TAB PO SCH (21:00)
[2018-07-20] MEDS: oxyCODONE IR 5 MG TAB PO PRN ×3 (02:31→16:00)
[2018-07-20] MEDS: OXYCODONE/APAP 5/325 TAB PO PRN ×3 (02:31→16:00)
[2018-07-20] MEDS: LEVOTHYROXINE 100 MCG TAB PO SCH (06:11)
[2018-07-20] MEDS ORDERED: POTASSIUM CL 10 MEQ TAB PO ONE (07:49)
[2018-07-20] MEDS: PANTOPRAZOLE SODIUM 40 MG TAB PO SCH ×2 (08:04→22:56)
[2018-07-20] MEDS: FERROUS SULFATE 325 MG TAB PO SCH ×2 (08:04→22:56)
[2018-07-20] MEDS: SPIRONOLACTONE 25 MG TAB PO SCH (08:04)
[2018-07-20] MEDS: morphINE SR 15 MG TAB PO SCH ×2 (08:04→22:56)
[2018-07-20] MEDS: FUROSEMIDE 40 MG/4 ML VIAL IVP SCH ×2 (08:05→15:20)
[2018-07-20] MEDS: guaiFENesin 600 MG TAB.ER PO SCH ×2 (08:05→22:56)
[2018-07-20 08:57] LABS: INR 1.98 (0.83-1.16); PROTIME(PATIENT) 21.6 SEC (12.0-15.0)
--- NOTE | 2018-07-20 12:03 | HOSPPROG ---
Hospitalist Progress Note Assessment/Plan: # dCHF exacerbation - he continues to do very well with diuresis; significant improvement in his LE edema - echo with worsened pulm htn - cont lasix 40 iv bid and aldactone 12.5 daily - could possible change to PO diuretics tomorrow # bioprosthetic TVR # bioprosthetic MVR # pulm htn # atrial fibrillation - cont warfarin - will decrease dose today given his rapid INR rise and supratherapeutic INR on presentation # supratherapeutic INR - s/p KCentra and vitamin K, now normal # possible GIB - suspect self limited in setting of supratherapeutic INR, no scope planned - hgb has been stable - change protonix to PO # normocytic anemia - follow today as above # JOHN/uremia - continues with diuresis # RLL pneumonia - rocephin D#05/30 - neg GI panel noted, doubt legionella with consolidation, thus will not cover atypicals # aspiration - honey thick per DENTAL HYGIENE TEACHER # acute metabolic encephalopathy - resolved, probably at baseline # R arm pain - XR neg for fracture, possible chronic rotator cuff tear # dvt ppx - INR # FCFT Subjective: no complaints Objective: Vital Signs Temp Pulse Resp BP Pulse Ox 36.3 C 81 18 102/70 99 07/20/18 11:50 07/20/18 11:50 07/20/18 11:50 07/20/18 11:50 07/20/18 11:50 Laboratory Results 07/19/18 03:06 07/20/18 03:17 07/19/18 07/20/18 07/21/18 05:59 05:59 05:59 Intake Total 700 670 Output Total 1525 0 Balance -825 -1380 PT 21.6 SEC (12.0-15.0) H 07/20/18 08:29 INR 1.98 (0.83-1.16) H 07/20/18 08:29 high risk on iv diuretics - Physical Exam Constitutional: cachectic Cardiovascular: regular rate and rhythym, no murmur, rub, or gallop Respiratory: no respiratory distress, no rales or rhonchi, clear to auscultation Gastrointestinal: soft, non-tender abdomen, no palpable masses, No guarding, No rebound, No distension ICD10 Worksheet Patient Problems: Problems Problem Status Onset CHF exacerbation Acute Severe tricuspid regurgitation Chronic S/P TVR (tricuspid valve replacement) Acute 12/25/15 Acute blood loss anemia Acute Coagulopathy Acute Permanent atrial fibrillation Chronic Atrial fibrillation Acute Dehydration Acute Leukocytosis Acute Diarrhea Acute Elevated troponin Acute Acute kidney injury Acute Peripheral edema Acute Pneumonia Acute GI bleed Acute Anemia Acute Coagulation disorder due to circulating anticoagulants Acute
[2018-07-20] MEDS ORDERED: WARFARIN SODIUM 4 MG TAB PO ONE (16:00)
[2018-07-20] MEDS ORDERED: WARFARIN SODIUM 3 MG TAB PO ONE (16:00)
[2018-07-20] MEDS: GABAPENTIN 300 MG CAP PO SCH (22:56)
[2018-07-20] MEDS ORDERED: POTASSIUM CL 20 MEQ TAB PO ONE (23:39)
[2018-07-21] MEDS: OXYCODONE/APAP 5/325 TAB PO PRN ×2 (01:35→10:51)
[2018-07-21] MEDS: oxyCODONE IR 5 MG TAB PO PRN (01:36)
[2018-07-21] MEDS: ACETAMINOPHEN 325 MG TAB PO PRN (03:17)
[2018-07-21 04:48] LABS: INR 2.72 (0.83-1.16); PROTIME(PATIENT) 27.5 SEC (12.0-15.0)
[2018-07-21] MEDS: LEVOTHYROXINE 100 MCG TAB PO SCH (05:30)
[2018-07-21] MEDS: FUROSEMIDE 40 MG/4 ML VIAL IVP SCH ×2 (08:24→16:04)
[2018-07-21] MEDS: morphINE SR 15 MG TAB PO SCH ×2 (08:26→21:41)
[2018-07-21] MEDS: guaiFENesin 600 MG TAB.ER PO SCH ×2 (08:26→21:42)
[2018-07-21] MEDS: SPIRONOLACTONE 25 MG TAB PO SCH (08:26)
[2018-07-21] MEDS: FERROUS SULFATE 325 MG TAB PO SCH ×2 (08:26→21:42)
[2018-07-21] MEDS: PANTOPRAZOLE SODIUM 40 MG TAB PO SCH ×2 (08:27→21:42)
--- NOTE | 2018-07-21 09:09 | ASMTCMCOM ---
CM Note CM Note Notes: CM spoke to pt's brother Aquiles Ely to let him know [facility] has accepted pt. He was pleased with the choice. Pt continues to have improving leg edema. May change from IV to oral diuretics today in preparation for ultimate discharge. CM will continue to follow. CM D/C plan: [facility] Date Signed: 07/21/2018 09:08 AM Electronically Signed By:Abby Lowry
[2018-07-21] MEDS: SENNOSIDES/DOCUSATE SODIUM TAB PO PRN ×2 (12:56→12:59)
--- NOTE | 2018-07-21 15:54 | HOSPPROG ---
Hospitalist Progress Note Assessment/Plan: # dCHF exacerbation - appears to be nearing or below recent dry weight. - echo with worsened pulm htn - transition to po home lasix in am. - cont home aldactone # bioprosthetic TVR # bioprosthetic MVR # pulm htn # atrial fibrillation - warfarin per pharmacy # supratherapeutic INR - s/p KCentra and vitamin K, now normal # possible GIB - suspect self limited in setting of supratherapeutic INR, no scope planned -reviewed GI consult, no evidence of current bleed. # normocytic anemia - follow today as above # JOHN/uremia - continues with diuresis # RLL pneumonia - rocephin D#06/29 - neg GI panel noted, doubt legionella with consolidation, thus will not cover atypicals # aspiration - honey thick per DULL COAT MILL OPERATOR # acute metabolic encephalopathy - resolved, probably at baseline # R arm pain - XR neg for fracture, possible chronic rotator cuff tear # dvt ppx - coumadin, # FCFT Subjective: wants water, not happy about honey thick liquids Objective: Vital Signs Temp Pulse Resp BP Pulse Ox 36.8 C 92 13 106/69 90 L 07/21/18 12:00 07/21/18 12:00 07/21/18 12:00 07/21/18 12:00 07/21/18 12:00 Laboratory Results 07/19/18 03:06 07/21/18 03:14 07/20/18 07/21/18 07/22/18 05:59 05:59 05:59 Intake Total 670 810 Output Total 2050 1825 Balance -1380 -1015 PT 27.5 SEC (12.0-15.0) H 07/21/18 03:14 INR 2.72 (0.83-1.16) H 07/21/18 03:14 - Physical Exam Constitutional: no apparent distress, appears nourished, not in pain Eyes: PERRL, anicteric sclera, EOMI Ears, Nose, Mouth, Throat: moist mucous membranes, hearing normal, ears appear normal, no oral mucosal ulcers Cardiovascular: regular rate and rhythym, no murmur, rub, or gallop, edema Respiratory: no respiratory distress, no rales or rhonchi, clear to auscultation Gastrointestinal: normoactive bowel sounds, soft, non-tender abdomen, no palpable masses Genitourinary: no bladder fullness, no bladder tenderness, no renal bruits Skin: no rashes or abrasions, no fluctuance, no induration Musculoskeletal: full muscle strength, no muscle tenderness, normal joint ROM Neurologic: AAOx3, sensation intact bilaterally Psychiatric: interacting appropriately, not anxious, not encephalopathic, thought process linear Lymph, Heme, Immunologic: no cervical LAD, no supraclavicular LAD ICD10 Worksheet Patient Problems: Problems Problem Status Onset Anemia Acute Coagulation disorder due to circulating anticoagulants Acute GI bleed Acute Pneumonia Acute Acute blood loss anemia Acute Acute kidney injury Acute Atrial fibrillation Acute CHF exacerbation Acute Coagulopathy Acute Dehydration Acute Diarrhea Acute Elevated troponin Acute Leukocytosis Acute Peripheral edema Acute S/P TVR (tricuspid valve replacement) Acute 12/25/15 Permanent atrial fibrillation Chronic Severe tricuspid regurgitation Chronic
[2018-07-21] MEDS: FUROSEMIDE 20 MG TAB PO SCH (16:20)
[2018-07-21] MEDS: GABAPENTIN 300 MG CAP PO SCH (21:41)
[2018-07-22] MEDS: OXYCODONE/APAP 5/325 TAB PO PRN ×2 (03:10→21:34)
[2018-07-22] MEDS: oxyCODONE IR 5 MG TAB PO PRN ×2 (03:10→21:35)
[2018-07-22 04:53] LABS: INR 3.01 (0.83-1.16); PROTIME(PATIENT) 29.7 SEC (12.0-15.0)
[2018-07-22] MEDS: FUROSEMIDE 80 MG TAB PO SCH (05:44)
[2018-07-22] MEDS: LEVOTHYROXINE 100 MCG TAB PO SCH (05:44)
[2018-07-22] MEDS: guaiFENesin 600 MG TAB.ER PO SCH ×2 (08:07→20:27)
[2018-07-22] MEDS: PANTOPRAZOLE SODIUM 40 MG TAB PO SCH ×2 (08:08→20:27)
[2018-07-22] MEDS: FERROUS SULFATE 325 MG TAB PO SCH ×2 (08:08→20:27)
[2018-07-22] MEDS: ACETAMINOPHEN 325 MG TAB PO PRN (08:08)
[2018-07-22] MEDS: morphINE SR 15 MG TAB PO SCH ×2 (08:11→20:26)
[2018-07-22] MEDS: SPIRONOLACTONE 25 MG TAB PO SCH (08:12)
[2018-07-22] MEDS: SENNOSIDES/DOCUSATE SODIUM TAB PO PRN ×2 (08:40→20:26)
[2018-07-22] MEDS ORDERED: POLYETHYLENE GLYCOL 3350 17 GM PKT PO ONE (10:52)
[2018-07-22] MEDS: FUROSEMIDE 20 MG TAB PO SCH (13:28)
--- NOTE | 2018-07-22 13:57 | ASMTCMCOM ---
CM Note CM Note Notes: CM met with pt, his brother Aquiles Ely, his jbfhcg-iv-ume, hospitalist Dr. May, and pt's RN in his room today. Pt is currently on [facility]. It was agreed to have them come out and discuss hospice option with family. CM set up appt for [facility] to consult with family in his hospital room tomorrow, Thursday, July 23, at noon. Family is aware. Dante with our Palliative Care team is also aware. CM will continue to follow. JOSE ALFREDO D/C plan: [facility] ([facility] vs home with [facility]) Date Signed: 07/22/2018 01:56 PM Electronically Signed By:Abby Moreno.BETSY
[2018-07-22] MEDS: GABAPENTIN 300 MG CAP PO SCH (20:27)
--- NOTE | 2018-07-22 21:43 | HOSPPROG ---
Hospitalist Progress Note Assessment/Plan: # dCHF exacerbation - appears to be nearing or below recent dry weight. - echo with worsened pulm htn - transition to po home lasix in am. - cont home aldactone # bioprosthetic TVR # bioprosthetic MVR # pulm htn # atrial fibrillation - continue warfarin, INR at goal # supratherapeutic INR - s/p KCentra and vitamin K, now normal # possible GIB - suspect self limited in setting of supratherapeutic INR, no scope planned -reviewed GI consult, no evidence of current bleed. # normocytic anemia - follow today as above # JOHN/uremia - continues with diuresis # RLL pneumonia - rocephin D#06/29 - neg GI panel noted, doubt legionella with consolidation, thus will not cover atypicals # aspiration - honey thick per ELECTRICAL SUPERVISOR # acute metabolic encephalopathy - resolved, probably at baseline # R arm pain - XR neg for fracture, possible chronic rotator cuff tear # dvt ppx - coumadin, # Long discussion regarding goals of care, and patient would like to be DNR. Meeting with hospice today or tomorrow. Subjective: no bm, would like a laxative. Objective: Vital Signs Temp Pulse Resp BP Pulse Ox 36.4 C 97 20 109/71 95 07/22/18 19:15 07/22/18 19:15 07/22/18 19:15 07/22/18 19:15 07/22/18 19:15 Microbiology 07/16/18 21:58 Blood Culture - Final Blood 07/16/18 21:55 Blood Culture - Final Blood Laboratory Results 07/19/18 03:06 07/22/18 17:53 07/21/18 07/22/18 07/23/18 05:59 05:59 05:59 Intake Total 810 1100 50 Output Total 1825 800 550 Balance -1015 300 -500 PT 29.7 SEC (12.0-15.0) H 07/22/18 03:06 INR 3.01 (0.83-1.16) H 07/22/18 03:06 - Physical Exam Constitutional: chronically ill appearing Eyes: PERRL, anicteric sclera, EOMI Ears, Nose, Mouth, Throat: moist mucous membranes, hearing normal, ears appear normal, no oral mucosal ulcers Cardiovascular: irregularly irregular Respiratory: reduced air movement, inspiratory crackles Gastrointestinal: normoactive bowel sounds, soft, non-tender abdomen, no palpable masses Genitourinary: no bladder fullness, no bladder tenderness, no renal bruits Skin: no rashes or abrasions, no fluctuance, no induration Musculoskeletal: generalized weakness Neurologic: AAOx3, sensation intact bilaterally Psychiatric: interacting appropriately, not anxious, not encephalopathic, thought process linear Lymph, Heme, Immunologic: no cervical LAD, no supraclavicular LAD ICD10 Worksheet Patient Problems: Problems Problem Status Onset Anemia Acute Coagulation disorder due to circulating anticoagulants Acute GI bleed Acute Pneumonia Acute Acute blood loss anemia Acute Acute kidney injury Acute Atrial fibrillation Acute CHF exacerbation Acute Coagulopathy Acute Dehydration Acute Diarrhea Acute Elevated troponin Acute Leukocytosis Acute Peripheral edema Acute S/P TVR (tricuspid valve replacement) Acute 12/25/15 Permanent atrial fibrillation Chronic Severe tricuspid regurgitation Chronic
[2018-07-22] MEDS ORDERED: POTASSIUM CL 10 MEQ TAB PO ONE (22:15)
[2018-07-23] MEDS: OXYCODONE/APAP 5/325 TAB PO PRN ×2 (03:41→14:16)
[2018-07-23] MEDS: oxyCODONE IR 5 MG TAB PO PRN ×2 (03:42→14:16)
[2018-07-23] MEDS: FUROSEMIDE 80 MG TAB PO SCH (05:08)
[2018-07-23] MEDS: LEVOTHYROXINE 100 MCG TAB PO SCH (05:08)
[2018-07-23 05:21] LABS: INR 3.15 (0.83-1.16); PROTIME(PATIENT) 30.7 SEC (12.0-15.0)
[2018-07-23] MEDS ORDERED: POTASSIUM CL 10 MEQ TAB PO ONE (07:26)
[2018-07-23] MEDS: PANTOPRAZOLE SODIUM 40 MG TAB PO SCH (08:41)
[2018-07-23] MEDS: morphINE SR 15 MG TAB PO SCH (08:41)
[2018-07-23] MEDS: FERROUS SULFATE 325 MG TAB PO SCH (08:42)
[2018-07-23] MEDS: SPIRONOLACTONE 25 MG TAB PO SCH (08:42)
[2018-07-23] MEDS: guaiFENesin 600 MG TAB.ER PO SCH (08:42)
--- NOTE | 2018-07-23 13:11 | PDIAF ---
- Diagnosis Code Status: Do Not Resuscitate - Medication Management Discharge Medications: electronically signed and located in the Home Medication List. - Orders Services needed: Registered Nurse, Physical Therapy, Occupational Therapy Isolation Type: None Diet Recommendation: no restrictions on diet Diet Texture: Regular Texture Diet, Honey Thick Liquids, Meds Whole in Puree - Labs/Radiology BMP Date: 07/26/18 (MONITOR k on lasix) PT/INR Date: 07/24/18 (monitor INR closely until stable. ) - Follow Up Care Current Providers and Referrals: Patient,NotPresent [Unknown] - As per Instructions
[2018-07-23] MEDS: FUROSEMIDE 20 MG TAB PO SCH (14:20)
--- NOTE | 2018-07-23 16:18 | PDDCSUM ---
Discharge Summary Discharge Summary: discharge diagnosis CHF exacerbation fluid overload pneumonia anemia supratherapeutic inr metabolic encephalopathy JOHN on CKD Atrial fibrillation Acute hypoxemic respiratory failure bioprosthetic MV/TVR the patient presented to the Er with complaints of weakness and fatigue, noted to be hypoxic and fluid overloaded. there was concern for a LLL pNA and he was started on abx for a cap. He was also started on iv lasix for fluid overload, and hypoxia. There was concern for gi bleed but it was thought to bne due to supratherapeutic INR. His coumadin wasa held ot let his INR drift down and then restarted at a lower dose. he was diuresed and given antibiotics and his oxygen status and lower extremity edema improved. He was noted to be likely aspirating and so RESEARCH PHARMACIST was consulted and patient failed swallow and so was started on a dysphagia diet with honey thickened liquids only. palliative care was consulted and patient was enrolled in this, they were offered hospice but were not interested. He was discharged to [facility] to complete rehab in good condition to follow up with his PCP. disposition- [facility] new medications -coumadin decreased to 3mg daily. I spent over 30 minutes on the discharge of this patient.
[2018-07-23 16:23] VITALS: BP 104/67
[2018-07-23] MEDS: ACETAMINOPHEN 325 MG TAB PO PRN (16:42)
--- NOTE | 2018-07-23 16:43 | ASDISCHSUM ---
Discharge Information Plan Status:SNF Medically Cleared to Leave: Discharge Date: D/C Disposition:Alf Facility [facility] D/C Disposition:Alf Facility Projected Discharge Date:07/24/2018 11:00 AM Transportation at D/C:Wheelchair Van Discharge Delay Reason: Follow-Up Date:07/24/2018 11:00 AM Discharge Slot: Final Diagnosis: Placement Information Referral Type:*Long Term/SNF Referral ID:[id number] Provider Name:[facility] Address 1:[address] Address 2: City:[place] Selection Factors: State:[place] Referral Type:*Hospice Referral ID:[id number] Provider Name: Address 1: Phone Number: Address 2: Fax Number: City: Selection Factors: State: Patient Contact Information Contact Name:ADINA Relationship:Other Address:[address] Work Phone: City:[place] Alternate Phone: [facility]/Zip Code:[place] [address] Email: Financial Information Financial Class:Medicare Advantage Plans Primary Plan Desc:[facility] [employer] Primary Plan Number:[id number] Secondary Plan Desc: Secondary Plan Number: Assessment Information [facility] CM Progress Note CM Note CM Note Notes: Patient brought to ED by family for AMS and 3 day hx diarrhea. Found to have dCHF exacerbation, PNA, and possible GI bleed. He lives with his and is normally independent. PT/OT ordered. Case Management will follow for d/c needs. Date Signed: 07/17/2018 11:07 AM Electronically Signed By:Miley Anderson RN LACE LEWIS Length of stay for Answers: 4-6 days current admission Acuity / Level of Answers: Yes Care: Did the patient have an inpatient admission? Comorbidities - select Answers: Congestive heart failure all that apply Mild liver or renal disease Other Notes: A-fib # of Emergency department Answers: 1-2 visits in the last 6 months Score: 13 Date Signed: 07/23/2018 04:41 PM Electronically Signed By:KATIE Rose [facility] JOSE ALFREDO Progress Note CM Note JOSE ALFREDO Note Notes: Spoke with patient. He acknowleges that he is not well enough to return home. Lives w step-daughter who is having knee surgery in three days. I called his brother Aquiles who requested referrals to [facility] and [facility]. Faisal will decide on facility in next few days. Case Management will follow. Date Signed: 07/18/2018 09:54 AM Electronically Signed By:Miley Anderson RN [facility] JOSE ALFREDO Progress Note CM Note CM Note Notes: CM spoke to pt's brother Aquiles Ely to let him know [facility] has accepted pt. He was pleased with the choice. Pt continues to have improving leg edema. May change from IV to oral diuretics today in preparation for ultimate discharge. CM will continue to follow. CM D/C plan: [facility] Date Signed: 07/21/2018 09:08 AM Electronically Signed By:Abby Moreno.RN [facility] CM Progress Note CM Note CM Note Notes: CM met with pt, his brother Aquiles Ely, his [id number], hospitalist Dr. May, and pt's RN in his room today. Pt is currently on [facility]. It was agreed to have them come out and discuss hospice option with family. CM set up appt for [facility] to consult with family in his hospital room tomorrow, July 23, at noon. Family is aware. Dante with our Palliative Care team is also aware. CM will continue to follow. JOSE ALFREDO D/C plan: [facility] ([facility] vs home with [facility]) Date Signed: 07/22/2018 01:56 PM Electronically Signed By:Abby Moreno.BETSY Intervention Information Intervention Type:*IM-Signed Date of Service:07/23/2018 03:27 PM Patient Type:Inpatient Staff Member:Jasmine Garcia Hours: Discipline: Severity: Comment:
--- NOTE | 2018-07-23 16:51 | ASMTDCNOTE ---
Case Management Discharge Discharge Order Complete? Answers: Yes Patient to Obtain Answers: Other Notes: [facility] Transportation Arranged Answers: Other Notes: [facility] Case Management Transport Answers: Yes Form Complete Faxed Final Orders Answers: Yes Agency/Facility Transfer Answers: Yes Report Printed & Faxed to Receiving Agency Family Notified Answers: Yes Discharge Comments Notes: [facility] spoke with family and agreed to dc to [facility] on [facility], not hospice. DC orders were submit and [facility] finally got Auth for pt for dc this afternoon. DC ppwk submit to [facility]. Transport arranged for 4:45pm. Family notified and in agreement. [facility] sent dc ppwk through all scripts. No other CM needs identified at this time. Date Signed: 07/23/2018 04:50 PM Electronically Signed By:KATIE Rose
== END 2018-07-23 17:08 | DRG 291 ==
LOC: EDUNIT# → F2N 23:02 → F2W 07-18 11:18
PROVIDERS: ADMIT Student in an Organized Health Care Education/Training Program; ATTEND Student in an Organized Health Care Education/Training Program
PROC: 30283B1 Transfusion of Nonautologous 4-Factor Prothrombin Complex Concentrate into Vein, Percutaneous Approach (ICD-10-PCS; principal; 2018-07-16)
DX: I50.33 Acute on chronic diastolic (congestive) heart failure (principal); J18.1 Lobar pneumonia, unspecified organism; J96.01 Acute respiratory failure with hypoxia; G93.41 Metabolic encephalopathy; N17.9 Acute kidney failure, unspecified; K92.2 Gastrointestinal hemorrhage, unspecified; N18.9 Chronic kidney disease, unspecified; R19.7 Diarrhea, unspecified; I48.91 Unspecified atrial fibrillation; E03.9 Hypothyroidism, unspecified; Z79.01 Long term (current) use of anticoagulants; Z95.3 Presence of xenogenic heart valve; Z23 Encounter for immunization; Z80.0 Family history of malignant neoplasm of digestive organs
CPT/HCPCS: 84484-ER; 92526-GN; 92610-GN; 92611-GN; 96365; 97162-GP; 97166-GO; 97530-GO; 97530-GP; 97535-GO; C9132; G0009; J0456; J0696; J1940; J3430